=== PATIENT | female | born 1960 | race Caucasian/White ===

== ENCOUNTER 2016-12-01 02:34 | Emergency (ER) | payer BC ==
[~2016-12-01] VITALS: Ht 160 cm; Wt 59.8 kg
[~2016-12-01 02:34] MED LIST: CITA20TA9 PO
[2016-12-01 02:39] VITALS: TEMP 36.7; Ht 160 cm; Wt 59.8 kg
--- NOTE | 2016-12-01 03:01 | EMERGENCY ROOM VISIT NOTE ---
History Report prepared by Irvin: Lizbeth Rodriguez Under the Supervision of: Dr. Hayden Barnett M.D. First contact with patient: 02:50 Chief Complaint: ANXIETY Stated Complaint: INCREASED ANXIETY History of Present Illness The patient is a 56 year old female who presents to the Emergency Room with complaints of worsening anxiety that started a few weeks ago. Associated symptoms include trouble sleeping, loss of appetite, weakness, and shaking. The patient states that she has a history of depression and anxiety. 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 The patient reports that she was taking Ativan each night for years. She recently ran out of this prescription. She is concerned that she may be going through withdrawal. The patient also mentions that her has not been well recently, which is causing her increased stress. The patient denies chest pain, shortness of breath , fevers, chills, or any additional associated symptoms. Source of History: patient, family Onset: A few weeks ago Position: other (Mental Health ) Timing: worsening Modifying Factors (Relieving): other (None) Associated Symptoms: + weakness, No fevers, No chills, No chest pain, No SOB Review of Systems See HPI for pertinent positives & negatives. A total of 10 systems reviewed and were otherwise negative. Past Medical & Surgical Medical Problems: (1) Anxiety (2) Depression Family History FH: cancer FH: diabetes mellitus FH: heart disease FH: hypertension Social History Smoking Status: Current Every Day Smoker Alcohol Use: none Drug Use: none Marital Status: Housing Status: lives with family Occupation Status: employed Current/Historical Medications Scheduled Citalopram Hydrobromide (Celexa), 20 MG PO HS Scheduled PRN Lorazepam (Ativan), 0.5 MG PO BID PRN for Anxiety/Agitation Allergies Coded Allergies: No Known Allergies (Unverified , 12/01/16) Physical Exam Vital Signs Date Time Temp Pulse Resp B/P (MAP) Pulse Ox O2 Delivery O2 Flow Rate FiO2 12/01/16 03:32 86 18 154/92 96 12/01/16 02:39 36.7 99 18 172/106 97 Room Air Physical Exam GENERAL: Patient is anxious appearing, in minimal distress. HEENT: No acute trauma, normocephalic atraumatic, mucous membranes moist, no nasal congestion, no scleral icterus. NECK: No stridor, no adenopathy, no meningismus, trachea is midline. LUNGS: No dyspnea. Clear to auscultation and equal bilaterally. No wheeze, no rhonchi. HEART: Regular rate and rhythm. No murmurs, rubs, gallops appreciated. ABDOMEN: Soft, nontender, bowel sounds positive, no masses appreciated, no peritonitis. BACK: No midline tenderness, no CVA tenderness EXTREMITIES: Normal motion all extremities, no cyanosis, no edema. NEUROLOGIC: Alert and oriented, no acute motor or sensory deficits, no focal weakness, cranial nerves grossly intact. PSYCH: Admits anxiety, denies depression. Denies suicidal ideations. SKIN: No rash, no jaundice, no diaphoresis. Medical Decision & Procedures Medications Administered Medications (Trade) Dose Ordered Sig/Tiana Route Start Time Stop Time Status Last Admin Dose Admin Lorazepam (Ativan 1MG Home Pack) 1 homepack UD ONCE PO 12/01/16 03:15 12/01/16 03:16 DC 12/01/16 03:17 1 HOMEPACK ED Course 0254: The patient was evaluated in room B3. A complete history and physical exam was performed. 0315: Ordered Lorazepam 1 homepack PO. 0318: Reevaluated the patient. Discussed results and discharge instructions: She verbalized understanding and agreement. The patient is ready for discharge. Medical Decision Differential: Mood Disorder, Overdose, Infectious, Electrolyte Abnormality, Cardiac, Hepatic, Endocrine, Toxicologic, Neurologic, amongst other pathologies entertained. Blood pressure screening: Patient was found to have an elevated blood pressure and was referred to their primary doctor for recheck and further treatment. I reviewed her medications. 56 yr old female arrives with complaint of anxiety and inability to sleep. Combination acute anxiety with likely some withdrawal as no ativan in the last week. Stable and breathing comfortably. Home with to go ativan and will give rx to cover her til she sees PCP as outpatient which I stressed need for. Furthermore I requested Case Management to touch base ot see about helping her get in with psychology, etc. Reviewed restrictions regarding ativan and it's risks. She is not suicidal and is comfortable with this plan as is daughter. Aware RTED if worsening or other concerns. Impression Primary Impression: Acute anxiety Additional Impressions: Insomnia Benzodiazepine withdrawal Hypertension Scribe Attestation The scribe's documentation has been prepared under my direction and personally reviewed by me in its entirety. I confirm that the note above accurately reflects all work, treatment, procedures, and medical decision making performed by me. Departure Information Dispostion Home / Self-Care Prescriptions Lorazepam (ATIVAN) 0.5 Mg Tab 0.5 MG PO BID Y for Anxiety/Agitation, #20 TAB Prov: Hayden Barnett M.D. 12/01/16 Referrals No Doctor, Assigned (PCP) Forms HOME CARE DOCUMENTATION FORM, IMPORTANT VISIT INFORMATION Patient Instructions Anxiety Disorder, [facility] Additional Instructions Your blood pressure was elevated during this visit. This is quite common in many people who are being evaluated in the Emergency Department for many reasons. However, it is important that you have your Primary Care Provider recheck your blood pressure and discuss whether treatment will be needed. roasterman elevated blood pressure can lead to strokes, heart attacks, kidney failure amongst other medical issues. If you develop severe headaches, chest pain, weakness in arms or legs, or other concerning symptoms call 911. You should discuss with your primary care provider whether you need Xrays for your smoking history. Problem Qualifiers
[2016-12-01] MEDS ORDERED: LORA-741 PO (03:04)
[2016-12-01] MEDS ORDERED: ATIVAN 1MG HOMEPACK PO ONE (03:15)
[2016-12-01 03:32] VITALS: BP 154/92; PULSE 86; O2SAT 96
== END 2016-12-01 03:33 | disposition home or self-care (01) ==
LOC: C.EDB 02:35
DX: F41.9 Anxiety disorder, unspecified (principal); G47.00 Insomnia, unspecified; T42.4X1A Poisoning by benzodiazepines, accidental (unintentional), initial encounter; I10 Essential (primary) hypertension; F32.9 Major depressive disorder, single episode, unspecified; F17.200 Nicotine dependence, unspecified, uncomplicated; Z80.9 Family history of malignant neoplasm, unspecified; Z83.3 Family history of diabetes mellitus; Z82.49 Family history of ischemic heart disease and other diseases of the circulatory system

== ENCOUNTER → 2016-12-25 | Outpatient (CLI) | payer BC ==
[2016-12-25 12:53] LABS: BLOOD UREA NITROGEN 10 mg/dl (7-18); CREATININE 0.64 mg/dl (0.60-1.20); GLUCOSE,FASTING 86 mg/dl (70-99)
[2016-12-25 12:54] LABS: ALT/SGPT 21 U/L (12-78); AST/SGOT 12 U/L (15-37); BUN/CREATININE RATIO 16.2 (10-20); CALCIUM 8.8 mg/dl (8.5-10.1); CARBON DIOXIDE 27 mmol/L (21-32); CHLORIDE 109 mmol/L (98-107); SODIUM 141 mmol/L (136-145)
[2016-12-25 12:57] LABS: ALKALINE PHOSPHATASE 94 U/L (45-117); CHOLESTEROL 180 mg/dl (0-200); CHOLESTEROL/HDL RATIO 4.7; HDL CHOLESTEROL 38 mg/dl; LDL CHOLESTEROL CALCULATED 117 mg/dl; TRIGLYCERIDES 125 mg/dl (0-150); VERY LOW DENSITY LIPOPROT CALC 25 mg/dl
== END | disposition home or self-care (01) ==
LOC: C.LABPBG 07:35
PROVIDERS: ATTEND Physician Assistant
DX: Z00.00 Encounter for general adult medical examination without abnormal findings (principal)

== ENCOUNTER → 2018-01-25 | Outpatient (CLI) | payer BC | END | disposition home or self-care (01) | LOC: C.PATHSPEC 17:04 | PROVIDERS: ATTEND Physician Assistant | DX: L57.0 Actinic keratosis (principal) ==

== ENCOUNTER 2019-04-02 08:33 | Inpatient (IN) ==
[2019-04-02 09:28] LABS: Basophils # (auto) 0.02 K/uL (0-0.2); Basophils % (auto) 0.2 %; Eosinophils # (auto) 0.04 K/uL (0-0.5); Eosinophils % (auto) 0.4 %; Hematocrit (blood only) 40.9 % (37-47); Hemoglobin 14.4 g/dL (12.0-16.0); Immature Granulocytes # (auto) 0.05 K/uL (0.00-0.02); Immature Granulocytes % (auto) 0.5 %; Lymphocytes # (auto) 1.19 K/uL (1.2-3.4); Lymphocytes % (auto) 11.9 %; Mean Corpuscular Hemoglobin 30.5 pg (25-34); Mean Corpuscular Hgb Conc 35.2 g/dL (32-36); Mean Corpuscular Volume 86.7 fL (80-100); Mean Platelet Volume 10.3 fL (7.4-10.4); Monocytes # (auto) 0.39 K/uL (0.11-0.59); Monocytes % (auto) 3.9 %; Neutrophils # (auto) 8.32 K/uL (1.4-6.5); Neutrophils % (auto) 83.1 %; Platelet Count 348 K/uL (130-400); RDW Coefficient of Variation 13.1 % (11.5-14.5); RDW Standard Deviation 41.8 fL (36.4-46.3); Red Blood Count 4.72 M/uL (4.2-5.4); White Blood Count 10.01 K/uL (4.8-10.8)
[2019-04-02 09:46] LABS: Albumin Level 3.8 gm/dl (3.4-5.0); BUN Creatinine Ratio 6.6 (10-20); Calcium 9.5 mg/dl (8.5-10.1); Creatinine Clr Calc Pharmacy 77.3 ml/min; Est GFR (African American) 112.4; Potassium 3.6 mmol/L (3.5-5.1)
[2019-04-02 09:56] LABS: Albumin Globulin Ratio 0.9 (0.9-2); Bilirubin,Total 0.5 mg/dl (0.2-1); Globulin 4.3 gm/dl (2.5-4.0); Thyroid Stimulating Hormone 0.365 uIu/ml (0.300-4.500); Total Protein 8.1 gm/dl (6.4-8.2)
[2019-04-02 10:24] LABS: Acetaminophen < 2 ug/ml (10-30); Salicylate 2.7 mg/dl (2.8-20)
[2019-04-02 11:20] LABS: Appearance Urine Clear (Clear); Bacteria Urine Automated Negative (Negative); Bilirubin Urine Negative (Negative); Blood Urine Negative (Negative); Cast Urine Automated 0 /lpf (0-5); Color Urine Yellow; Epithelial Cell Urine Auto >30 /lpf (0-5); Glucose Urine UA Negative (Negative); Ketones Urine Trace (Negative); Leukocyte Esterase Urine Negative (Negative); Nitrite Urine Negative (Negative); Protein Urine 1+ (Negative); RBC Urine Automated 0-4 /hpf (0-4); Urobilinogen Urine Negative (Negative)
[2019-04-02 11:45] LABS: Amphetamines+Metham, Urine Neg (Neg); Barbiturates, Urine Neg (Neg); Benzodiazepine, Urine Neg (Neg); Cocaine, Urine Neg (Neg); MDMA (Ecstacy), Urine Neg (Neg); Methadone, Urine Neg (Neg); Opiate, Urine Neg (Neg); Phencyclidine, Urine Neg (Neg)
[2019-04-02] MEDS ORDERED: LORazepam 1 MG TAB SL STA (11:48)
--- NOTE | 2019-04-02 12:41 | History & Physical Report ---
Date of Service April 02, 2019 Assessment & Plan (1) Hyponatremia: Possibly contributing to anxiety Last Na in system was 10/07/18 and it was 135 Uncertain if this has been an ongoing issue or is related to recent increase in celexa x9 days vs recent decreased PO intake Monitor with IVF Recheck tonight (2) Anxiety: Panic attacks with some SI Attempted to check in at [facility] but did not meet criteria Does follow with psych care Recent increase in celexa on 03/24 Psych c/s pending (3) Depression: continue home meds (4) Insomnia: Trazodone has helped (5) Hyperlipidemia: continue home meds (6) HTN (hypertension): Recent increase in lisinopril Labile in the ED in the setting of anxiety Monitor (7) Tobacco use disorder: Nicotine patch (8) DVT prophylaxis: SCDs History of Present Illness Primary Care Provider: Marianne Gonzalez, DO 58 y/o F c/o anxiety. Pt states that she has had worsening anxiety over the last few months, but particularly intense over the last few weeks. She was seen by PCP on 03/24 and her celexa was increased. Her BP was elevated at that time and her lisinopril was also increased. She has not been able to sleep and she was put on trazodone. The trazodone has helped her to fall asleep, but she is not staying asleep. She does not feel any improvement in her anxiety, however she is aware that celexa can take several weeks to help. She has had thoughts of hurting herself. She tried to check into [facility], but was told she did not qualify for inpt care there. She has not been eating much recently. 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 She has occasional chest pain, but fleeting and not in the last few weeks. Pt denies fever, SOB, abd pain, n/v/c/d, LE pain or swelling. Pt follows with [facility] and has an appt with them for . Pt notes baseline tobacco use is <1/2ppd, but she has been up to 1.5ppd the last few weeks. She has hx of alcohol abuse and inpt rehab tx 16 yrs ago. She has not had any alcohol since that time, but did take 1 drink last night "and I never should have did it because it didn't help anything". Denies other substance abuse. Allergies Allergy/AdvReac Type Severity Reaction Status Date / Time No Known Allergies Allergy Verified 04/02/19 09:26 Home Medications Home Medications Medication Instructions Recorded Confirmed Type atorvastatin 20 mg tablet 20 mg PO HS #90 tab 01/06/19 04/02/19 History cholecalciferol (vitamin D3) 2,000 2,000 units PO DAILY #30 cap 01/06/19 04/02/19 History unit capsule lorazepam 0.5 mg tablet 0.5 mg PO TID PRN #60 tab 03/29/19 04/02/19 Rx citalopram 20 mg PO BID 04/02/19 04/02/19 History lisinopril 20 mg PO BID 04/02/19 04/02/19 History trazodone 50 mg PO DAILY 04/02/19 04/02/19 History Past Med/Surg History Medical History Abnormal skin morphology determined by biopsy Elevated alkaline phosphatase level Hyperlipidemia History of colon polyps Anxiety Depression History of colon polyps Hypertension Surgical History History of arthroscopy of right knee History of bilateral tubal ligation History of section x2 History of colonoscopy History of dilatation and curettage Family History Grandmother (Maternal) Family history of diabetes mellitus Father Alcohol abuse Cardiac disorder Diabetes Lung disease Myocardial infarction Mother Anxiety Hypertension Breast cancer Family/Other No problems noted. Social History Preferred Language: Albanian Communication Ability: Effective Visual Impairment: No Limitations Hearing Ability: Normal Actuarial Analyst Required: No Beliefs That Will Affect Care: None marital status: Current Living Situation: Spouse and Family Feels Safe at Home: Yes Smoking Status: Current every day smoker Tobacco Type: cigarettes ; Age Started Using Tobacco: 23 ; packs per day: 1 ; Cigarettes Per Day: 10 a day ; Second Hand Exposure: No ; Hx Alcohol Use: Yes Alcohol type Comment: hx of rehab 16 yrs ago Alcohol Intake Frequency Comment: Did attempt 1 drink last night, but none x16 yrs prior Hx Substance Use: No Dental Care, Regularly: Yes Review of Systems Review of Systems: Pertinent positives and negatives reviewed in HPI--all others negative Physical Exam Constitutional: WD/WN, vitals as above Eyes: normal visual cancino by confrontation and + anicteric sclerae Neck: normal visual inspection and trachea midline Respiratory: normal respiratory effort, lungs clear to auscultation Cardiovascular: Rate/Rhythm: regular rate and regular rhythm Gastrointestinal (Abdomen): Inspection/Auscultation: abdomen not distended Percussion/Palpation: abdomen soft; abdomen nontender Musculoskeletal: Head/Neck/Chest: normocephalic and head atraumatic ne gative for edema, peripheral pulses intact Skin: no rashes, warm and dry Neurologic: awake; not confused Speech / Cognition: normal speech Psychiatric: Orientation: oriented x 3 Apperance: appropriately groomed Eye Contact: good eye contact Speech: normal rate/rhythm/volume of speech Affect: + anxious affect (mildly anxious) Results & Data Vital Signs (Past 12 Hours) Vital Signs Temp Pulse Pulse Resp BP BP Pulse Ox 04/02/19 11:46 84 20 152/76 H 97 04/02/19 08:36 36.4 C L 97 H 20 163/97 H 100 Code Status & VTE Plan Code Status Full code VTE Prophylaxis Plan VTE Prophylaxis will be ordered: Yes PG Care Time/CCT Total # of Minutes Spent Total Time Spent with Patient: Total time spent is greater than 50% in coordination of care (as documented) at patient's floor/unit and/or counseling patient: (1) Depression Depression Type: unspecified Qualified Code(s): F32.9 - Major depressive disorder, single episode, unspecified
--- NOTE | 2019-04-02 12:45 | Emergency Department Note ---
Entered by Fozia Mendoza acting as a scribe for Jagjit Yanez DO History of Present Illness General Chief complaint: Mental Health Evaluation Stated complaint: MENTAL BREAKDOWN Time Seen by Provider: 04/02/19 08:53 Source: patient History of Present Illness Onset (ago): week(s) 1 Location: head Pain Consistency: + other (persistent) Quality: + other (anxiety/ISRAEL exacerbation) Relieved By: not by medication (Ativan, Trazadone, Celexa) Associated symptoms: + other (generalized SI without a plan, negative thoughts, forgetting to take medications, feeling "blank") The patient is a 58 year old female that is presenting to the Emergency Room with complaints of persistent anxiety that has been ongoing and worsened 1 week ago. The patient reports that she has been diagnosed with generalized anxiety disorder. She states that she been feeling worse lately and has generalized thoughts of self-harm. She denies any specific plan but states that she is tired of these negative thoughts. She notes that she feels no suman in any activ ity and is unable to have any positive thoughts. She reports that she tried to get admitted to the [facility] for inpatient treatment 1 week ago but was denied direct admission as she did not fit criteria. The patient states that she saw a therapist at [facility] the following day and is scheduled for a follow up in 4 days. She notes that she saw her PCP 3 days ago and had her medications adjusted. She states that she takes Celexa, Ativan, and Trazadone. She reports that she decided to come to the ED today to seek help as she is not getting better at home. She states that she would like to be admitted to help rid her of her anxiety and negative thoughts. The patient notes that she is having diff iculty remembering to take her medication. She states that she drank alcohol last night for the first time in 16 years. 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 The patient reports that she believes her anxiety was triggered by her husbands end-stage COPD. She states that she had previously been obsessed with his illness and trying to help him get better. She notes that she now feels blank and does not care about it anymore. She reports that she used to feel suman around other people but now feels nothing. Home Medications Home Medications Medication Instructions Recorded Confirmed Type atorvastatin 20 mg tablet 20 mg PO HS #90 tab 01/06/19 04/02/19 History cholecalciferol (vitamin D3) 2,000 2,000 units PO DAILY #30 cap 01/06/19 04/02/19 History unit capsule lorazepam 0.5 mg tablet 0.5 mg PO TID PRN #60 tab 03/29/19 04/02/19 Rx citalopram 20 mg PO BID 04/02/19 04/02/19 History lisinopril 20 mg PO BID 04/02/19 04/02/19 History trazodone 50 mg PO DAILY 04/02/19 04/02/19 History Allergies Allergy/AdvReac Type Severity Reaction Status Date / Time No Known Allergies Allergy Verified 04/02/19 09:26 Past Med/Surg History Medical History Abnormal skin morphology determined by biopsy Elevated alkaline phosphatase level Hyperlipidemia History of colon polyps Anxiety Depression History of colon polyps Hypertension Surgical History History of arthroscopy of right knee History of bilateral tubal ligation History of section x2 History of colonoscopy History of dilatation and curettage Family History Grandmother (Maternal) Family history of diabetes mellitus Father Alcohol abuse Cardiac disorder Diabetes Lung disease Myocardial infarction Mother Anxiety Hypertension Breast cancer Family/Other No problems noted. 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 and A total of 10 systems reviewed and were otherwise negative Physical Exam Vital Signs Vital Signs - 24 hr 04/02/19 08:36 04/02/19 11:46 Temperature 36.4 C L Temperature Source Oral Sepsis Recent Fever Within 48 Hours No Sepsis New/Unexplained Change in Mental Status No Sepsis Action Taken by Nursing No Action Required Pulse Rate 97 H Pulse Rate [Finger] 84 Respiratory Rate 20 20 Blood Pressure 163/97 H Blood Pressure [Left Arm] 152/76 H Blood Pressure Mean 119 Blood Pressure Mean [Left Arm] 101 Pulse Oximetry 100 97 Oxygen Delivery Method Room Air Room Air CONSTITUTIONAL/VITAL SIGNS: Reviewed / noted above. GENERAL: Non-toxic in appearance. INTEGUMENTARY: Warm, dry, and [place]. HEAD: Normocephalic. EYES: without scleral icterus or trauma. ENT/OROPHARYNX: clear and moist. LYMPHADENOPATHY/NECK: Is supple without lymphadenopathy or meningismus. RESPIRATORY: Lungs clear and equal. CARDIOVASCULAR: Regular rate and rhythm. GI/ABDOMEN: Soft and nontender. No organomegaly or pulsatile mass. No rebound or guarding. Normal bowel sounds. EXTREMITIES: Warm and well perfused. BACK: No CVA tenderness. NEUROLOGICAL: Intact without focal deficits. PSYCHIATRIC: Slightly depressed affect. MUSCULOSKELETAL: Normally developed with good muscle tone. Course 0856:The patient was evaluated in room A06. A complete history and physical examination was performed. 1113: The patient is requesting medication to help her to calm down. 1120: I discussed the patient's case with Dr. [place] [facility], who will evaluate the patient for further management and care. She states that a psych consult will be called for the patient while in the hospital. 1129: Upon reevaluation, the patient is resting comfortably. I discussed laboratory and radiographic results with the patient. She verbalized agreement of the treatment plan. The patient will be evaluated for further management and care. Administered Medications Discontinued Medications Lorazepam (Ativan) 1 mg SL NOW STA Stop: 04/02/19 11:49 Last Admin: 04/02/19 12:01 Dose: 1 mg Documented by: [id number] Medical Decision Making Differential Diagnosis Differential includes toxic ingestions, self-mutilation, suicidal ideation, suicide attempt, depression. Medical Records Attestation: I reviewed the patient's medical records. Home Medications Current Medication List: was personally reviewed by me Laboratory Data Attestation: I reviewed the patient's lab results. Result diagrams: 04/02/19 09:18 04/02/19 09:18 Lab Results 04/02/19 04/02/1904/02/19 Range/Units 09:18 09:18 09:18 WBC 10.01 (4.8-10.8) K/uL RBC 4.72 (4.2-5.4) M/uL Hgb 14.4 (12.0-16.0) g/dL Hct 40.9 (37-47) % MCV 86.7 (80-100) fL MCH 30.5 (25-34) pg MCHC 35.2 (32-36) g/dL RDW Std Deviation 41.8 (36.4-46.3) fL RDW Coeff of Hever 13.1 (11.5-14.5) % Plt Count 348 (130-400) K/uL MPV 10.3 (7.4-10.4) fL Immature Gran % (Auto) 0.5 % Neut % (Auto) 83.1 % Lymph % (Auto) 11.9 % Lyon % (Auto) 3.9 % Eos % (Auto) 0.4 % Baso % (Auto) 0.2 % Immature Gran # (Auto) 0.05 H (0.00-0.02) K/uL Neut # (Auto) 8.32 H (1.4-6.5) K/uL Lymph # (Auto) 1.19 L (1.2-3.4) K/uL Lyon # (Auto) 0.39 (0.11-0.59) K/uL Eos # (Auto) 0.04 (0-0.5) K/uL Baso # (Auto) 0.02 (0-0.2) K/uL Sodium 124 L (136-145) mmol/L Potassium 3.6 (3.5-5.1) mmol/L Chloride 92 L (98-107) mmol/L Carbon Dioxide 25 (21-32) mmol/L Anion Gap 7.0 (3-11) BUN 4 L (7-18) mg/dl Creatinine 0.64 (0.6-1.2) mg/dl Est Cr Clr Drug Dosing 77.3 ml/min Est GFR ( Amer) 112.4 Est GFR (Non-Af Amer) 97.0 BUN/Creatinine Ratio 6.6 L (10-20) Glucose 129 H (70-99) mg/dl Calcium 9.5 (8.5-10.1) mg/dl Total Bilirubin 0.5 (0.2-1) mg/dl AST 16 (15-37) U/L ALT 32 (12-78) U/L Alkaline Phosphatase 259 H (45-117) U/L Total Protein 8.1 (6.4-8.2) gm/dl Albumin 3.8 (3.4-5.0) gm/dl Globulin 4.3 H (2.5-4.0) gm/dl Albumin/Globulin Ratio 0.9 (0.9-2) TSH 0.365 (0.300-4.500) uIu/ml Urine Color Urine Appearance (Clear) Urine pH (4.5-7.5) Ur Specific [place] (1.000-1.030) Urine Protein (Negative) Urine Glucose (UA) (Negative) Urine Ketones (Negative) Urine Blood (Negative) Urine Nitrite (Negative) Urine Bilirubin (Negative) Urine Urobilinogen (Negative) Ur Leukocyte Esterase (Negative) Urine WBC (Auto) (0-5) /hpf Urine RBC (Auto) (0-4) /hpf U Hyaline Cast (Auto) (0-5) /lpf U Epithel Cells (Auto) (0-5) /lpf Urine Bacteria (Auto) (Negative) Salicylates 2.7 L (2.8-20) mg/dl Urine Opiates Screen (Neg) Ur Methadone, Qual (Neg) Acetaminophen < 2 L (10-30) ug/ml Urine Barbiturates (Neg) Ur Phencyclidine (PCP) (Neg) U Amphetamin/Meth Scrn (Neg) MDMA (Ecstasy) Screen (Neg) U Benzodiazepines Scrn (Neg) Ur Cocaine Metabolite (Neg) U Marijuana (THC) Screen (Neg) Ethyl Alcohol mg/dL (0-3) mg/dl 04/02/19 04/02/19 04/02/19 Range/Units 09:18 10:45 10:45 WBC (4.8-10.8) K/uL RBC (4.2-5.4) M/uL Hgb (12.0-16.0) g/dL Hct (37-47) % MCV (80-100) fL MCH (25-34) pg MCHC (32-36) g/dL RDW Std Deviation (36.4-46.3) fL RDW Coeff of Hever (11.5-14.5) % Plt Count (130-400) K/uL MPV (7.4-10.4) fL Immature Gran % (Auto) % Neut % (Auto) % Lymph % (Auto) % Lyon % (Auto) % Eos % (Auto) % Baso % (Auto) % Immature Gran # (Auto) (0.00-0.02) K/uL Neut # (Auto) (1.4-6.5) K/uL Lymph # (Auto) (1.2-3.4) K/uL Lyon # (Auto) (0.11-0.59) K/uL Eos # (Auto) (0-0.5) K/uL Baso # (Auto) (0-0.2) K/uL Sodium (136-145) mmol/L Potassium (3.5-5.1) mmol/L Chloride (98-107) mmol/L Carbon Dioxide (21-32) mmol/L Anion Gap (3-11) BUN (7-18) mg/dl Creatinine (0.6-1.2) mg/dl Est Cr Clr Drug Dosing ml/min Est GFR ( Amer) Est GFR (Non-Af Amer) BUN/Creatinine Ratio (10-20) Glucose (70-99) mg/dl Calcium (8.5-10.1) mg/dl Total Bilirubin (0.2-1) mg/dl AST (15-37) U/L ALT (12-78) U/L Alkaline Phosphatase (45-117) U/L Total Protein (6.4-8.2) gm/dl Albumin (3.4-5.0) gm/dl Globulin (2.5-4.0) gm/dl Albumin/Globulin Ratio (0.9-2) TSH (0.300-4.500) uIu/ml Urine Color Yellow Urine Appearance Clear (Clear) Urine pH 7.0 (4.5-7.5) Ur Specific [place] 1.010 (1.000-1.030) Urine Protein 1+ H (Negative) Urine Glucose (UA) Negative (Negative) Urine Ketones Trace H (Negative) Urine Blood Negative (Negative) Urine Nitrite Negative (Negative) Urine Bilirubin Negative (Negative) Urine Urobilinogen Negative (Negative) Ur Leukocyte Esterase Negative (Negative) Urine WBC (Auto) 1-5 (0-5) /hpf Urine RBC (Auto) 0-4 (0-4) /hpf U Hyaline Cast (Auto) 0 (0-5) /lpf U Epithel Cells (Auto) >30 H (0-5) /lpf Urine Bacteria (Auto) Negative (Negative) Salicylates (2.8-20) mg/dl Urine Opiates Screen Neg (Neg) Ur Methadone, Qual Neg (Neg) Acetaminophen (10-30) ug/ml Urine Barbiturates Neg (Neg) Ur Phencyclidine (PCP) Neg (Neg) U Amphetamin/Meth Scrn Neg (Neg) MDMA (Ecstasy) Screen Neg (Neg) U Benzodiazepines Scrn Neg (Neg) Ur Cocaine Metabolite Neg (Neg) U Marijuana (THC) Screen Neg (Neg) Ethyl Alcohol mg/dL < 3.0 (0-3) mg/dl Blood Pressure Blood Pressure Findings: Elevated blood pressure Blood Pressure Disposition: Referred to patients primary care provider MDM Narrative This is a 58-year-old female who presents to the ED with a chief complaint of anxiety. The patient was diagnosed with generalized anxiety recently by her PCP. She states that she went to the [facility] last week and they did not accept her. She followed up with some [facility] this past Wednesday and has an appointment to see the psychiatrist this . The patient saw her PCP and had medications prescribed including Ativan, trazodone and Celexa. The patient states that she has been feeling anxious. She states that she has not had alcoh ol to drink for a number of years as she was an alcoholic but drank alcohol last night. She states that she does not care and states that she is having some suicidal ideations. The patient's physical exam was unremarkable. She does appear slightly anxious. Her blood work including a CBC and chemistry panel was unremarkable with exception of a sodium of 124. Alcohol was negative, Tylenol was negative and salicylates were 2.7. The patient will be seen by the hospitalist for further evaluation and care. Mental health services can be consulted by the patient is in the hospital being evaluated for hyponatremia. Impression & Plan Hyponatremia, Anxiety, Depression Discharge Plan Visit Data Chief Complaint: Mental Health Evaluation Stated Complaint: MENTAL BREAKDOWN ED Provider: Jagjit Yanez Discharge Problem: Hyponatremia, Anxiety, Depression Patient Disposition: Being Evaluated by Hospitalist Forms Stand Alone Forms: My [facility] Prescriptions Prescriptions: No Action lorazepam 0.5 mg tablet 0.5 mg PO TID PRN (Reason: anxiety) Qty: 60 RF: 0 atorvastatin 20 mg tablet 20 mg PO HS Qty: 90 RF: 0 cholecalciferol (vitamin D3) 2,000 unit capsule 2,000 units PO DAILY Qty: 30 RF: 0 trazodone 50 mg tablet 50 mg PO DAILY RF: 0 lisinopril 20 mg tablet 20 mg PO BID RF: 0 citalopram 20 mg Tablet 20 mg PO BID RF: 0 Referrals Referrals: Marianne Gonzalez DO [Primary Care Provider] - Discharge Problem: Depression Qualifiers: Depression Type: unspecified Qualified Code(s): F32.9 - Major depressive disorder, single episode, unspecified The scribe's documentation has been prepared under my direction and personally reviewed by me in its entirety. I confirm that the note above accurately reflects all work, treatment, procedures, and medical decision making performed by me.
[2019-04-02] MEDS ORDERED: ONDANSETRON INJ 2 MG/ML 2 ML VIAL IV PRN (14:31)
[2019-04-02] MEDS ORDERED: MAGNESIUM HYDROXIDE SUSP 30 ML UDC PO PRN (14:31)
[2019-04-02] MEDS ORDERED: ACETAMINOPHEN 325 MG TAB PO PRN (14:31)
[2019-04-02] MEDS ORDERED: LORazepam 0.5 MG TAB PO PRN (14:31)
[2019-04-02] MEDS ORDERED: CITALOPRAM 40 MG TAB PO SCH (15:30)
[2019-04-02] MEDS: NSS + 20MEQ KCL 20 MEQ/1,000 ML BAG IV SCH (15:34)
[2019-04-02] MEDS: NICOTINE 21 MG/24 HR TDSY TD SCH (15:34)
[2019-04-02] MEDS: CITALOPRAM 40 MG TAB PO SCH (15:35)
[2019-04-02] MEDS ORDERED: INFLUENZA ADMINISTRATION CHARGE ONE (16:00)
[2019-04-02] MEDS ORDERED: INFLUENZA VIRUS QUAD VACCINE 0.5 ML SYR IM ONE (16:00)
[2019-04-02 20:23] LABS: BUN Creatinine Ratio 13.8 (10-20); Calcium 8.6 mg/dl (8.5-10.1); Est GFR (African American) 100.4; Est GFR (Non-African American) 86.6; Potassium 4.2 mmol/L (3.5-5.1)
[2019-04-02] MEDS ORDERED: Nursing to Pharmacy Communication ONE (20:38)
[2019-04-02] MEDS ORDERED: TRAZODONE HCL 50 MG TAB PO SCH (21:00)
[2019-04-02] MEDS ORDERED: ATORVASTATIN 20 MG TAB PO SCH (21:00)
[2019-04-02] MEDS: lisinopriL 20 MG TAB PO SCH (21:10)
[2019-04-03] MEDS: NSS + 20MEQ KCL 20 MEQ/1,000 ML BAG IV SCH (03:48)
[2019-04-03] MEDS: lisinopriL 20 MG TAB PO SCH (07:38)
[2019-04-03] MEDS: CITALOPRAM 40 MG TAB PO SCH (07:38)
[2019-04-03] MEDS: NICOTINE 21 MG/24 HR TDSY TD SCH (08:17)
[2019-04-03] MEDS ORDERED: CHOLECALCIFEROL 1,000 UNITS TAB PO SCH (09:00)
[2019-04-03] MEDS ORDERED: TRAZODONE HCL 50 MG TAB PO SCH (09:00)
[2019-04-03] MEDS ORDERED: CITALOPRAM 40 MG TAB PO SCH (09:00)
[2019-04-03 09:06] LABS: BUN Creatinine Ratio 10.9 (10-20); Calcium 8.9 mg/dl (8.5-10.1); Creatinine Clr Calc Pharmacy 64.3 ml/min; Est GFR (African American) 97.3; Est GFR (Non-African American) 83.9; Potassium 4.2 mmol/L (3.5-5.1)
--- NOTE | 2019-04-03 12:36 | Psychiatric Consultation ---
Date of Consultation April 03, 2019 Impression / Recommendations Impression 58-year-old female admitted medically on 04/02/2019 after presenting to the ED with suicidal ideation and desire for inpatient psychiatric treatment. Upon ED workup, patient was found to have hyponatremia, and medical admission was recommended for correction. Psychiatric consultation was requested to evaluate patient for suicidal ideation and panic attacks. Patient admits to depressive symptoms for several months, admitting that her largest stressor at this point in time is to deterioration of her 's physical health. Although the timing of the symptoms has been less than 6 months, the patient reports 2 prior depressive episodes for which she required inpatient psychiatric treatment and initiation of antidepressant medications. Her current presentation is likely onset of another depressive episode, and we will treat as major depressive disorder, recurrent, severe. Patient does endorse suicidal ideation, but denies plan or intent. At this point in time, the patient has demonstrated inability to effectively care for self as she is admitting to not eating or sleeping well, apathy, and anhedonia. Patient herself verbalized that she is concerned about her safety that she is expected to return home. Patient permitted this provider to obtain collateral information from her daughters, who also verbalized that they feel unsafe with her mother returning home as they are unsure what additionally they are able to provide for her. Given failed outpatient treatment, worsening of condition, and persistent suicidality, it is recommended that the patient be referred for inpatient psychiatric treatment in order to mitigate risk factors and receive therapeutic interventions. There are no recommendations at this time to adjust her psychiatric medications, and we will defer this to accepting facility. Liaison will assist with reviewing in network facilities, patient is more than welcome to be transferred to our unit should she desire. Patient and family are agreeable with recommendation for inpatient psychiatric treatment at this time. They denied other needs or concerns presently. Dr. Sanjana Singleton was directly involved in review and discussion of the patient's case and participated in medical decision making regarding treatment recommendations. Risk Factors Assessment Do You Have Access To A Gun?: Yes (states she would use it to harm herself) Psych History Identifying Data 58-year-old female admitted medically on 04/02/2019 after presenting to the ED with suicidal ideation and desire for inpatient psychiatric treatment. Upon ED workup, patient was found to have hyponatremia, and medical admission was recommended for correction. Psychiatric consultation was requested to evaluate patient for suicidal ideation and panic attacks. Information is gathered from hospital documentation and the patient herself, which appears to be reliable. Collateral information was also obtained from the patient's daughters, with patient's verbal permission. Chief Complaint "I have had 2 major depressive episodes in my life. Now I have another one, it started this summer. My got sick a few years ago." History of Present Illness 58-year-old female admitted medically on 04/02/2019 after presenting to the ED with suicidal ideation and desire for inpatient psychiatric treatment. Upon ED workup, patient was found to have hyponatremia, and medical admission was recommended for correction. Psychiatric consultation was requested to evaluate patient for suicidal ideation and panic attacks. Patient's case was reviewed and discussed with psychiatric nurse liaison and psychiatrist. Upon entering patient's room, she was receiving a visit from her 2 adult daughters. Patient did request that they leave the room for the interview; however, she allowed this provider to discuss her situation separately with her daughters after our conversation. Patient admits to this provider that she has been struggling with depressive symptoms "since the summer." She reports to previous "major depressive episodes in my life." The first depressive episode occurred after the of her infant son. Patient admits that she was suicidal at that time, without active furtherance. She reportedly received inpatient treatment and was started on antidepressant medications. Patient states that her depressive symptoms returned during her with her third child, and was unable to emotionally connect with this daughter. Patient received inpatient treatment again at this time to treat depression and resume medications. Pat ient states she is remained on antidepressant medication since that time, denied significant depressive episodes until recently. Patient states that she went to her primary care physician about her mood concerns over the last several months, and her dose of citalopram was titrated from 20 mg to 40 mg. Patient was also initiated on trazodone 50 mg to help with sleep. Both of these medication ijeoma nges were made roughly a week prior to this admission. Patient also takes lorazepam 0.5 mg 3 times daily as needed, and admits she is taking this medication more frequently than it is prescribed in order to manage her elevated anxiety level. Patient states that she and her daughters called the crisis line regarding her suicidality, and she was told she did not meet criteria for a field evaluation, but could present to the ED or the [facility]. Patient's daughter accompanied the patient to the [facility], where she was again told she did not meet criteria for inpatient psychiatric admission. Patient followed up with her outpatient therapist shortly after these events, but continued to have passive suicidality. She admits that she has not been properly caring for herself at home, especially as the anxiety has been increasing over the last several days. Patient believes this most recent depressive episode is heavily related to her 's deteriorating health. The patient reports that her was diagnosed with COPD "a few years ago", and that he is likely approaching the end of his life. Patient states that as she has been struggling to care for her during this time, she has noticed "my thoughts and feelings have become distorted." When asked to explain this statement, the patient initially reports that this "distortion" is the fact that activities and visits that historically had brought her suman no longer do so. Patient states "I even go to places I know I like in order to feel suman, but I still do not." When asked about the logical or bizarre thoughts, the patient does mention a situation that she states she wishes to keep private from her daughters. Patient shares that her has been taking her for several nights to turn down his oxygen level while he is sleeping, so he can pass peacefully. Patient denies having truly consider this, but states "I did it the other night, I do not even know why, I immediately turned it back up." The patient does admit that her concentration has been reduced, and there are periods of time in which she feels confused. Patient endorses difficulty falling and staying asleep, reduced appetite with a 30 pound weight loss in the last 2-3 months, decreased energy level, and hopelessness. Patient admits that she does have suicidal thoughts, but does not have a plan or intent to act on these thoughts. Patient admits that she is scared to go home and her current condition, as she is worried about the worsening of these thoughts. In regard to anxiety, the patient endorses racing thoughts and excessive w orrying. She states "I worry all the time about how I can get better myself and take care of him." Patient admits to physical symptoms as a result of anxiety, and endorses headaches, tachycardia, and "numbness" that last "all day". Patient mentions several times that she has "obsessions", which she describes as a need to be on her phone looking up various topics. Patient states "initially I was obsessed with ideas on how to get [my ] better." She states now that she has been "obsessed with researching [place]." Collateral information is obtained from the patient's 2 adult daughters with her permission. Daughters agree that her symptoms have been ongoing since the summer months. They state it seems as though their mother is "not there." They state that he is trying to be supportive, offering her the opportunity to leave the house and "get away" with family. They state the patient may show up at their homes at 7:00 in the morning, stating she cannot be home. They then state s "but when we tried to take her places, she has a lot of anxiety about not being at home." They admit that the patient has not been eating or sleeping well, and that she endorsed suicidal ideation to them yesterday, which prompted the visit to the emergency room. They also state they were concerned as their mother reported improvement in sleep the evening of 03/31/19, later admitting that she had consumed alcohol and believed this was why. They state that her mother has been sober for 16 years, and that the alcohol use is a concern for him as well. Patient's daughter states that they do not feel overly comfortable with the idea of their mother returning home and her current condition, and feel she would benefit from inpatient psychiatric treatment at this time. Pt denies SIB, A/V hallucinations, paranoia, luis/hypomania, other symptoms more suggestive of a bipolar presentation, PTSD, eating disorder, and other specific psychiatric symptoms. Past Psychiatric History Current Psychiatric Diagnosis: Depression, Anxiety Outpatient Services: Therapist - Kirstin Acosta, [facility] - [facility] [place] Psychiatric intake scheduled at [facility] for 04/06/19 Previous Psych Admissions: [facility] - 37 years ago (after the of her baby boy) [facility] - 28 years ago ( depression) Do You Have Access To A Gun?: Yes (states she would use it to harm herself) History of Previous Suicide Attempt: No Past Medication Trials: Per patient reports: 1. Elavil 2. Celexa 3. Ativan 4. Trazodone Allergies Allergy/AdvReac Type Severity Reaction Status Date / Time No Known Allergies Allergy Verified 04/02/19 09:26 Home Medications Home Medications Medication Instructions Recorded Confirmed Type atorvastatin 20 mg tablet 20 mg PO HS #90 tab 01/06/19 04/02/19 History cholecalciferol (vitamin D3) 2,000 2,000 units PO DAILY #30 cap 01/06/19 04/02/19 History unit capsule lorazepam 0.5 mg tablet 0.5 mg PO TID PRN #60 tab 03/29/19 04/02/19 Rx citalopram 40 mg PO DAILY 04/02/19 04/02/19 History lisinopril 20 mg PO BID 04/02/19 04/02/19 History trazodone 50 mg PO DAILY 04/02/19 04/02/19 History Family History Mother with anxiety; grandfather with alcoholism. Reports grandfather committed suicide. Substance Abuse History Pt admits to history of alcohol abuse. 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 Patient History Medical History Abnormal skin morphology determined by biopsy Elevated alkaline phosphatase level Hyperlipidemia History of colon polyps Anxiety Depression History of colon polyps Hypertension Surgical History History of arthroscopy of right knee History of bilateral tubal ligation History of section x2 History of colonoscopy History of dilatation and curettage Family History Grandmother (Maternal) Family history of diabetes mellitus Father Alcohol abuse Cardiac disorder Diabetes Lung disease Myocardial infarction Mother Anxiety Hypertension Breast cancer Family/Other No problems noted. Social History Preferred Language: Swedish Communication Ability: Effective Visual Impairment: No Limitations Hearing Ability: Normal Rides Supervisor Required: No Beliefs That Will Affect Care: None marital status: Current Living Situation: Spouse Other Information That Helps Us Care for You: No Feels Safe at Home: Yes Smoking Status: Current every day smoker Tobacco Type: cigarettes ; Age Started Using Tobacco: 23 ; packs per day: 1 ; Cigarettes Per Day: 10 a day ; Do You Dip or Chew Tobacco: No ; Second Hand Exposure: No ; Tobacco Cessation Education Requested by Patient: No Hx Alcohol Use: No Hx Substance Use: No Dental Care, Regularly: Yes Physical Exam Psychiatric: Orientation: alert, oriented x 3 and cooperative Apperance: appropriately dressed (for situation, in paper scrubs), appropriately groomed and appeared stated age female of healthy-appearing weight, appearing anxious but in no acute distress. Patient is appropriately dressed for situation, as she is wearing paper scrubs. Blonde, shoulder length hair is neatly styled. Level of grooming and hygiene appears appropriate. Eye Contact: good eye contact Motor Behavior: no abnormal motor movements (Patient observed while sitting in bed) Speech: normal rate/rhythm/volume of speech Affect: + depressed affect, + anxious affect, + tearful affect and mood congruent with affect Mood: + depressed mood ("I just have not been caring about anything") and + anxious mood ("I worry all the time") Thought Process: goal directed thought process, linear/logical thought process, clear/coherent thought process and thought association intact Thought Content: reality based without delusions, + hopelessness and + guilt Suicidal Thoughts: denies suicidal plan and denies suicidal intent; + reports suicidal thoughts But endorses significant concerns about returning home without addressing her depressive symptoms. Unable to contract for safety outside of an inpatient setting at this time Homicidal Thoughts: denies homicidal thoughts However, see HPI for additional information. Hallucinations: no auditory hallucinations and no visual hallucinations Cognition: remote memory grossly intact, attention grossly intact and language grossly intact Insight: + fair insight Judgement: + fair judgement Vital Signs (Past 24 Hours): Last Vital Signs Temp 36.7 C 04/03/19 11:15 Pulse 82 04/03/19 11:15 Resp 18 04/03/19 11:15 BP 145/82 H 04/03/19 11:15 Pulse Ox 95 04/03/19 11:15 Review of Systems Constitutional: reports generalized weakness Cardiovascular: denied Respiratory: denied Gastrointestinal: denied Neurological: reports dizziness Psychiatric: denies symptoms other than stated above Total of at least 10 systems reviewed, pertinent positives as above and in HPI. Results & Data Medications Administered Atorvastatin Calcium (Lipitor) 20 mg PO HS [facility] Stop: 05/02/19 20:59 Last Admin: 04/02/19 21:08 Dose: 20 mg Documented by: [id number] Citalopram Hydrobromide (Celexa) 40 mg PO DAILY [facility] Stop: 05/02/19 15:29 Last Admin: 04/03/19 07:38 Dose: 40 mg Documented by: [id number] Admin: 04/02/19 15:35 Dose: 40 mg Documented by: [id number] Lisinopril (Zestril) 20 mg PO BID [facility] Stop: 05/02/19 20:59 Last Admin: 04/03/19 07:38 Dose: 20 mg Documented by: [id number] Admin: 04/02/19 21:10 Dose: 20 mg Documented by: [id number] Lorazepam (Ativan) 0.5 mg PO TID PRN PRN Reason: anxiety Stop: 05/02/19 14:30 Last Admin: 04/02/19 21:10 Dose: 0.5 mg Documented by: [id number] Miscellaneous (Remove Nicoderm Patch) 1 ea N/A HS [facility] Stop: 05/02/19 20:59 Last Admin: 04/02/19 21:11 Dose: 1 ea Documented by: [id number] Nicotine (Nicoderm Cq) 21 mg TD QAM [facility] Stop: 05/02/19 14:30 Last Admin: 04/03/19 08:17 Dose: 21 mg Documented by: [id number] Admin: 04/02/19 15:34 Dose: 21 mg Documented by: [id number] Trazodone HCl (Desyrel) 50 mg PO HS [facility] Stop: 05/02/19 20:59 Last Admin: 04/02/19 21:07 Dose: 50 mg Documented by: [id number] Vitamin D (Vitamin D3) 2,000 units PO DAILY [facility] Stop: 05/03/19 08:59 Last Admin: 04/03/19 07:38 Dose: 2,000 units Documented by: [id number] Coding Level of Care Code 31117 [facility] Intl Hosp Care Lvl 3
[2019-04-03 14:03] LABS: BUN Creatinine Ratio 14.3 (10-20); Calcium 8.5 mg/dl (8.5-10.1); Creatinine Clr Calc Pharmacy 71.7 ml/min; Est GFR (African American) 109.7; Est GFR (Non-African American) 94.6; Potassium 4.3 mmol/L (3.5-5.1)
--- NOTE | 2019-04-03 17:45 | Discharge Summary ---
Date of Service April 03, 2019 Admission HPI Per Admitting Provider 58-year-old female admitted medically on 04/02/2019 after presenting to the ED with suicidal ideation and desire for inpatient psychiatric treatment. Upon ED workup, patient was found to have hyponatremia, and medical admission was recommended for correction. Psychiatric consultation was requested to evaluate patient for suicidal ideation and panic attacks. Patient's case was reviewed and discussed with psychiatric nurse liaison and psychiatrist. Upon entering patient's room, she was receiving a visit from her 2 adult daughters. Patient did request that they leave the room for the interview; however, she allowed this provider to discuss her situation separately with her daughters after our conversation. Patient admits to this provider that she has been struggling with depressive symptoms "since the summer." She reports to previous "major depressive episodes in my life." The first depressive episode occurred after the of her infant son. Patient admits that she was suicidal at that time, without active furtherance. She reportedly received inpatient treatment and was started on antidepressant medications. Patient states that her depressive symptoms returned during her with her third child, and was unable to emotionally connect with this daughter. Patient received inpatient treatment again at this time to treat depression and resume medications. Patient states she is remained on antidepressant medication since that time, denied significant depressive episodes until recently. Patient states that she went to her primary care physician about her mood concerns over the last several months, and her dose of citalopram was titrated from 20 mg to 40 mg. Patient was also initiated on trazodone 50 mg to help with sleep. Both of these medication changes were made roughly a week prior to this admission. Patient also takes lorazepam 0.5 mg 3 times daily as needed, and admits she is taking this medication more frequently than it is prescribed in order to manage her elevated anxiety level. Patient states that she and her daughters called the crisis line regarding her suicidality, and she was told she did not meet criteria for a field evaluation, but could present to the ED or the [facility]. Patient's daughter accompanied the patient to the [facility], where she was again told she did not meet criteria for inpatient psychiatric admission. Patient followed up with her outpatient therapist shortly after these events, but continued to have passive suicidality. She admits that she has not been properly caring for herself at home, especially as the anxiety has been increasing over the last several days. Patient believes this most recent depressive episode is heavily related to her 's deteriorating health. The patient reports that her was diagnosed with COPD "a few years ago", and that he is likely approaching the end of his life. Patient states that as she has been struggling to care for her during this time, she has noticed "my thoughts and feelings have become distorted." When asked to explain this statement, the patient initially reports that this "distortion" is the fact that activities and visits that historically had brought her suman no longer do so. Patient states "I even go to places I know I like in order to feel suman, but I still do not." When asked about the logical or bizarre thoughts, the patient does mention a situation that she states she wishes to keep private from her daughters. Patient shares that her has been taking her for several nights to turn down his oxygen level while he is sleeping, so he can pass peacefully. Patient denies having truly consider this, but states "I did it the other night, I do not even know why, I immediately turned it back up." The patient does admit that her concentration has been reduced, and there are periods of time in which she feels confused. Patient endorses difficulty falling and staying asleep, reduced appetite with a 30 pound weight loss in the last 2-3 months, decreased energy level, and hopelessness. Patient admits that she does have suicidal thoughts, but does not have a plan or intent to act on these thoughts. Patient admits that she is scared to go home and her current condition, as she is worried about the worsening of these thoughts. In regard to anxiety, the patient endorses racing thoughts and excessive worrying. She states "I worry all the time about how I can get better myself and take care of him." Patient admits to physical symptoms as a result of anxiety, and endorses headaches, tachycardia, and "numbness" that last "all day". Patient mentions several times that she has "obsessions", which she describes as a need to be on her phone looking up various topics. Patient states "initially I was obsessed with ideas on how to get [my ] better." She states now that she has been "obsessed with researching [place]." Collateral information is obtained from the patient's 2 adult daughters with her permission. Daughters agree that her symptoms have been ongoing since the summer months. They state it seems as though their mother is "not there." They state that he is trying to be supportive, offering her the opportunity to leave the house and "get away" with family. They state the patient may show up at their homes at 7:00 in the morning, stating she cannot be home. They then states "but when we tried to take her places, she has a lot of anxiety about not being at home." They admit that the patient has not been eating or sleeping well, and that she endorsed suicidal ideation to them yesterday, which prompted the visit to the emergency room. They also state they were concerned as their mother reported improvement in sleep the evening of 03/31/19, later admitting that she had consumed alcohol and believed this was why. They state that her mother has been sober for 16 years, and that the alcohol use is a concern for him as well. Patient's daughter states that they do not feel overly comfortable with the idea of their mother returning home and her current condition, and feel she would benefit from inpatient psychiatric treatment at this time. Pt denies SIB, A/V hallucinations, paranoia, luis/hypomania, other symptoms more suggestive of a bipolar presentation, PTSD, eating disorder, and other specific psychiatric symptoms. Admission Exam Per Admitting Provider Constitutional: WD/WN, vitals as above Eyes: normal visual cancino by confrontation and + anicteric sclerae Neck: normal visual inspection and trachea midline Respiratory: normal respiratory effort, lungs clear to auscultation Cardiovascular: Rate/Rhythm: regular rate and regular rhythm Gastrointestinal (Abdomen): Inspection/Auscultation: abdomen not distended Percussion/Palpation: abdomen soft; abdomen nontender Musculoskeletal: Head/Neck/Chest: normocephalic and head atraumatic negative for edema, peripheral pulses intact Skin: no rashes, warm and dry Neurologic: awake; not confused Speech / Cognition: normal speech Psychiatric: Orientation: oriented x 3 Apperance: appropriately groomed Eye Contact: good eye contact Speech: normal rate/rhythm/volume of speech Affect: + anxious affect (mildly anxious) Principal Diagnosis Anxiety/Depression with thoughts of self harm Discharge Exam Constitutional WD/WN, vitals as above cooperative Eyes + anicteric sclerae ENMT external ear and nose normal, oropharynx normal Neck trachea midline Respiratory normal respiratory effort, lungs clear to auscultation Cardiovascular RRR, no murmur, no edema Heart Sounds: normal S1 and normal S2 Skin no rashes, warm and dry Neurologic awake Psychiatric Orientation: alert and oriented x 3 Apperance: appropriately groomed Eye Contact: + fair eye contact Motor Behavior: no abnormal motor movements Speech: normal rate/rhythm/volume of speech Affect: + blunted affect Mood: + depressed mood Thought Process: goal directed thought process and linear/logical thought proces s Suicidal Thoughts: denies suicidal plan (passive ideation only) Cognition: recent memory grossly intact and remote memory grossly intact Estimated Intelligence: average estimated intelligence Insight: good insight Judgement: good judgement Denies hallucinations/delusions Discharge Data Allergies Allergy/AdvReac Type Severity Reaction Status Date / Time No Known Allergies Allergy Verified 04/02/19 09:26 Consultations 04/02/19 11:27 ED Decision to Admit Stat 04/02/19 14:31 Consult Case Management - Discharge Planning Routine Consult Psychiatry Routine 04/02/19 15:19 Consult Behavioral Health Liaison Routine Hospital Course (1) Anxiety: Ms. Esquivel was admitted to [facility] 04/02/19-04/03/19 for worsening of her underlying anxiety with associated thoughts of self harm. On exam by primary team she reported a reduction in her anxiety level and denied any recurrent thoughts of self harm. She elaborated that her previous thoughts were passive in nature. There are guns in her home, although they are kept in a safe in her basement. She reports not knowing how to operate a gun. Her home dose of Celexa, which had recently been increased from 20mg to 40mg daily, was continued through her hospital stay, as was her trazodone. Psychiatry was consulted during her stay who recommended transfer to an inpatient psychiatry hospital for further treatment, to which Ms. Esquivel was amenable. Outpatient items to do: routine psychiatry follow up (2) Hyponatremia: On admission Mrs. Esquivel's sodium level was 124. The etiology of her hyponatremia was thought to be secondary to reduced oral intake of foods/fluids (patient's daughter reported she had not been eating well in the days preceding hospitalization) vs side effect of her celexa dose (from 20 to 40mg daily). On discharge level was 132. Outpatient items to do: continue to monitor with BMP (3) Depression: patient describes an underlying history of depression with two prior major depressive episodes in her life. She reports a feeling on presentation that she likens to how she began to feel at the start of her prior episodes. Home dose celexa was continued throughout stay. Describes thoughts of passive suicidal ideation preceding admission. There are guns in her home, although they are kept in a safe in her basement. She reports not knowing how to operate a gun. Patient discharged to inpatient psychiatric rehab. (4) Tobacco use disorder: patient normally smokes 0.5 ppd; in days preceding admission she increased to 1.5 ppd in an attempt to self medicate pack year history is around 20 years Outpatient items to do: Tobacco cessation education; assess qualification for chest CT (lung cancer screening) (5) HTN (hypertension): continue home lisinopril (6) Hyperlipidemia: continue home atorvastatin Total Time Total Time Spent Total Time Spent (In Minutes): see attending attestation Discharge Plan Discharge Items Patient Disposition: Transfer Behavioral Health Fac Reason For Visit: HYPONA Discharge Diagnosis: Depression and Anxiety with thoughts of self harm Condition on Discharge: Good Activity: Resume your previous activity Non-emergency contact: Primary Care Provider and Psychiatrist Call non-emergency contact if: you have any medication questions Follow-up/Referrals: Marianne Gonzalez, [Primary Care Provider] - Diet: Regular Addtl Attending Provider Instructions: You were admitted to [facility] on 04/02/19 for increased anxiety with thoughts of self harm. Your home dose of celexa and trazodone were continued while in the hospital. Psychiatry was consulted during your stay. On exam, you stated that your anxiety level had reduced and you no longer were having thoughts of harming yourself. They felt you would benefit from an inpatient admission, which you voluntarily agreed to. You were discharged to their service on 04/03/19. During your hospitalization you were found to have a low sodium level. Your level improved with IV fluids, but still remained low upon discharge. The cause of your low sodium level may have been reduced oral intake before admission, or it may represent a side effect of your recently increased dose of celexa (from 20 to 40mg daily). Please follow up with your primary care provider and psychiatrist upon discharge from the inpatient psychiatric hospital. Pending Studies at Discharge: No Stand-Alone Forms: My [facility] Skilled Items DNR: No Medications and DC Order Prescriptions: New citalopram 40 mg Tablet 40 mg PO DAILY 30 Days Qty: 30 RF: 0 Continued lorazepam 0.5 mg tablet 0.5 mg PO TID PRN (Reason: anxiety) Qty: 60 RF: 0 atorvastatin 20 mg tablet 20 mg PO HS Qty: 90 RF: 0 cholecalciferol (vitamin D3) 2,000 unit capsule 2,000 units PO DAILY Qty: 30 RF: 0 trazodone 50 mg tablet 50 mg PO DAILY RF: 0 lisinopril 20 mg tablet 20 mg PO BID RF: 0 citalopram 40 mg Tablet 40 mg PO DAILY RF: 0 Discharge Orders: Discharge Order (Routine); Ordered 04/03/19 Ordered By: Sheyla Nobles/Other Patient Handouts: Depression Causes, Depression Help Tips Admission Data Admit Date/Time: 04/02/19 14:03 Attending Provider: Tony Cowan Admit Provider: Linda Montana Primary Care Provider: Marianne Gonzalez Other Providers: Linda Montana ; Tabitha Estes Other Interventions: Discharge Summary Assessment (RN) Last Done: 04/03/19 18:04 DC Date/Time DO NOT enter until pt leaves facility: 04/03/19 18:32 Supervising Physician Co-Signing Physician Notes Patient seen and examined with Dr. Villarreal. I agree with their exam findings, review of systems, assessment and plan. I have personally reviewed the lab work and imaging from today. patient was feeling a little better but still anxious, depressed affect. She denied any active suicidal thoughts, it was always more passive with feeling like it would not be bad if she simply did not wake up. reviewed labs, sodium up to 134, her serum osmolality was normal she admitted to not eating or drinking well for weeks secondary to stress and anxiety she was seen by psychiatry, approved for inpatient care exam: WDWN female, lungs CTA bilaterally, S1 and S2 regular, no murmurs psych: flat affect, poor eye contact, speech non-pressured, no hallucinations, denies active suicidal thoughts - Hyponatremia: due to poor oral intake, poor solute intake, resolved with NSS, Na up to 134, serum osmolality normal - Anxiety and depression, with passive suicidal thoughts approved for inpatient psychiatric care, plan for medications, counselling, group and individual therapy Resident Activity Tracking Resident Involvement: Resident Care Provided Care Provided: Adult Hospital Medicine
== END 2019-04-03 18:32 | DRG 641 ==
LOC: ED 08:33 → SUATTDRO 14:03 → 2S 14:03

== ENCOUNTER 2019-04-03 18:25 | Inpatient (IN) ==
[2019-04-03] MEDS ORDERED: SODIUM CHLORIDE 0.65% NA SOLN 45 ML (OCEAN) PRN (19:55)
[2019-04-03] MEDS ORDERED: BISMUTH SUBSALICYLATE PER ML OMNICELL CHARGE PO PRN (19:55)
[2019-04-03] MEDS ORDERED: ALUMINUM/MAGNESIUM SUSP 30 ML UDC PO PRN (19:55)
[2019-04-03] MEDS ORDERED: MAGNESIUM HYDROXIDE SUSP 30 ML UDC PO PRN (19:55)
[2019-04-03] MEDS ORDERED: ACETAMINOPHEN 325 MG TAB PO PRN (19:55)
[2019-04-03] MEDS ORDERED: LORazepam 0.5 MG TAB PO PRN (20:00)
[2019-04-03] MEDS: lisinopriL 20 MG TAB PO SCH (21:04)
[2019-04-03] MEDS: ATORVASTATIN 20 MG TAB PO SCH (21:04)
[2019-04-03] MEDS: TRAZODONE HCL 50 MG TAB PO SCH (21:04)
[2019-04-04] MEDS: CHOLECALCIFEROL 1,000 UNITS TAB PO SCH (08:23)
[2019-04-04] MEDS: lisinopriL 20 MG TAB PO SCH ×2 (08:23→21:13)
--- NOTE | 2019-04-04 08:53 | History & Physical ---
Date of Service April 04, 2019 Impression / Recommendations Impression 58-year-old female with a history of recurrent depression and generalized anxiety disorder who had been managed on citalopram and Lorazepam for years by her PCP, and has decompensated in the past few months in the context of 's declining health. She has been abusing Lorazepam, significantly increased her smoking, and symptoms have worsened to the point that she is unable to function independently at home and has repeatedly sought inpatient mental health treatment. She has not been eating, has lost weight, and had hyponatremia on presentation resulting in admission to the hospitalist service initially. Her PCP just increased citalopram last week to 40 mg, and started trazodone for sleep, which are reasonable initial interventions. She has support from HER-2 adult daughters, and recently started outpatient psychotherapy. Inpatient treatment is medically necessary due to the severity of her symptoms and risk for worsening physical health and suicide if discharged without intervention to reduce risk factors. (1) Depression: 04/04 -reviewed diagnosis and treatment recommendations, including adjustment to medications, therapy in groups on the unit, working on healthy coping skills, and behavioral interventions. -Continue recently increased citalopram 40 mg. -Continue trazodone 50 mg at bedtime, may repeat x1 if needed. -Safety plan: We will enlist family for plan to remove guns in the home, as patient's no longer uses them and she has had multiple episodes of depression with suicidal ideation. Recommend family meeting to include daughters and possibly if able to participate. -Care coordinated with outpatient therapist, Kirstin Acosta, at [facility] [place]. Psychiatric intake scheduled at [facility] for 04/06, may need to reschedule if she is still here. -TSH 0.365 on admission, WNLs. Depression Type: major depressive disorder Major depression recurrence: recurrent Active/Remission status: currently active Major depression episode severity: severe Psychotic features: without psychotic features Qualified Code(s): F33.2 - Major depressive disorder, recurrent severe without psychotic features Present on Admission?: Yes (2) Anxiety: 04/04 -citalopram increased as above. Offer hydroxyzine as needed for anxiety. -Lorazepam discontinued due to abuse of the medication, risks including cognitive impairment, falls, delirium, and history of substance abuse (alcoholism). Coordinate care with prescribing physician, Dr. Gonzalez -send re cords. -Work on behavioral strategies for managing anxiety, relaxation techniques, and healthy coping skills. Present on Admission?: Yes (3) Hyponatremia: 04/04 -sodium 124 on admission, 132 as of 04/03/2019. Encourage good nutrition, and recheck BMP tomorrow. Present on Admission?: Yes (4) Tobacco use disorder: 04/04 -smoking cessation education, offer patch and/or nicotine gum as needed for cravings here. Present on Admission?: Yes (5) HTN (hypertension): 04/04 -continue lisinopril 20 mg twice daily, which was increased by her PCP last week, and again increased on the hospitalist service due to ongoing hypertension. BP today 142/92, continue to monitor and adjust as needed. Anxiety is likely contributing to hypertension and tachycardia. Present on Admission?: Yes (6) Hyperlipidemia: Continue home dose of atorvastatin. Present on Admission?: Yes 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 (rifles and pistol)) Health Problems: Yes Mental Health Diagnoses: Yes Substance Use Disorders: Yes Previous Attempt: No Family History of Suicide: Yes Previous Psychiatric Hospitalization: Yes Hopelessness: Yes Smoker: Yes Protective Factors Assessment Zoroastrian Beliefs: Yes : Yes Responsible for Young Children: No Employed: Yes Stable Relationships: Yes Supportive Family: Yes Psychiatric History Identifying Data GEOVANNI AVENDAÑO is a 58-year-old F who currently lives in [place] with her , has a history of depression and anxiety, and was admitted on 04/03/19 18:34 on a 201 voluntary commitment for worsening mood and anxiety and inability to function at home. Chief Complaint "It's been bad". History of Present Illness Patient presented to the ER 04/02/2017 reporting worsening mood, anxiety, and suicidal thoughts. She was hyponatremic with a sodium of 124, so was admitted to the hospitalist service, and was seen by the psychiatry consult service 04/03/2019. Assessment per Nanci Thorpe PA-C: She has been struggling with depressive symptoms "since the summer." She reports to previous "major depressive episodes in my life." The first depressive episode occurred after the of her infant son. Patient admits that she was suicidal at that time, without active furtherance. She reportedly received inpatient treatment and was started on antidepressant medications. Patient states that her depressive symptoms returned during her with her third child, and was unable to emotionally connect with this daughter. Patient received inpatient treatment again at this time to treat depression and resume medications. Patient states she is remained on ant idepressant medication since that time, denied significant depressive episodes until recently. Patient states that she went to her primary care physician about her mood concerns over the last several months, and her dose of citalopram was titrated from 20 mg to 40 mg. Patient was also initiated on trazodone 50 mg to help with sleep. Both of these medication changes were made roughly a week prior to this admission. Patient also takes lorazepam 0.5 mg 3 times daily as needed, and admits she is taking this medication more frequently than it is prescribed in order to manage her elevated anxiety level. Patient states that she and her daughters called the crisis line regarding her suicidality, and she was told she did not meet criteria for a field evaluation, but could present to the ED or the [facility]. Patient's daughter accompanied the patient to the [facility], where she was again told she did not meet criteria for inpatient psychiatric admission. Patient followed up with her outpatient therapist shortly after these events, but continued to have passive suicidality. She admits that she has not been properly caring for herself at home, especially as the anxiety has been increasing over the last several days. Patient believes this most recent depressive episode is heavily related to her 's deteriorating health. The patient reports that her was diagnosed with COPD "a few years ago", and that he is likely approaching the end of his life. Patient states that as she has been struggling to care for her during this time, she has noticed "my thoughts and feelings have become distorted." When asked to explain this statement, the patient initially reports that this "distortion" is the fact that activities and visits that historically had brought her suman no longer do so. Patient states "I even go to places I know I like in order to feel suman, but I still do not." When asked about the logical or bizarre thoughts, the patient does mention a situation that she states she wishes to keep private from her daughters. Patient shares that her has been taking her for several nights to turn down his oxygen level while he is sleeping, so he can pass peacefully. Patient denies having truly consider this, but states "I did it the other night, I do not even know why, I immediately turned it back up." The patient does admit that her concentration has been reduced, and there are periods of time in which she feels confused. Patient endorses difficulty falling and staying asleep, reduced appetite with a 30 pound weight loss in the last 2-3 months, decreased energy level, and hopelessness. Patient admits that she does have suicidal thoughts, but does not have a plan or intent to act on these thoughts. Patient admits that she is scared to go home and her current condition, as she is worried about the worsening of these thoughts. In regard to anxiety, the patient endorses racing thoughts and excessive worrying. She states "I worry all the time about how I can get better myself and take care of him." Patient admits to physical symptoms as a result of anxiety, and endorses headaches, tachycardia, and "numbness" that last "all day". Patient mentions several times that she has "obsessions", which she describes as a need to be on her phone looking up various topics. Patient states "initially I was obsessed with ideas on how to get [my ] better." She states now that she has been "obsessed with researching [place]." Collateral information is obtained from the patient's 2 adult daughters with her permission. Daughters agree that her symptoms have been ongoing since the summer months. They state it seems as though their mother is "not there." They state that he is trying to be supportive, offering her the opportunity to leave the house and "get away" with family. They state the patient may show up at their homes at 7:00 in the morning, stating she cannot be home. They then states "but when we tried to take her places, she has a lot of anxiety about not being at home." They admit that the patient has not been eating or sleeping well, and that she endorsed suicidal ideation to them yesterday, which prompted the visit to the emergency room. They also state they were concerned as their mother reported improvement in sleep the evening of 03/31/19, later admitting that she had consumed alcohol and believed this was why. They state that her mother has been sober for 16 years, and that the alcohol use is a concern for him as well. Patient's daughter states that they do not feel overly comfortable with the idea of their mother returning home and her current condition, and feel she would benefit from inpatient psychiatric treatment at this time. She was continued on her home psychotropic medications, and as of yesterday sodium had improved to 132. She was medically cleared and transferred to the behavioral health unit voluntarily. On my assessment today, she reports worsening mood and anxiety since the summer, which she initially thought was due to her 's declining health (COPD), so didn't seek treatment. She had been on citalopram for decades, since she was 30 years old and has depression after the of her daughter. She reports low mood most of the time, was having crying spells during the summer but now feels emotionally dulled "just nothing," poor concentration, anhedonia (used to enjoy [employer] football and shopping), decreased sleep with inability to fall asleep and stay asleep, and guilty feelings. She has not been eating due to decreased appetite, and has lost 7-8 lbs in the past couple months. She feels unable to function, has had to manager discovery due to feeling overwhelmed, anxious and shaky, and has had repeated presentations for IP treatment ([facility] and here). She has a history of alcoholism and had not drank in 16 years, but had one drink the night prior to presentation, and feels guilty about it. She endorses high anxiety that is constant, worries excessively about "everything," feels on edge and unable to relax. She says she was "abusing Ativan" at home, taking 3-4 a day when she was only prescribed it once daily. It has been prescribed by her PCP Dr. Gonzalez, last Rx for #90 tabs of 0.5 mg tabs filled 02/23/19. She has been smoking excessively, increased from 1/2 pack/day to 1.5 pack/day, and then developed nasal congestion. She reports feeling overwhelmed with her 's declining health, at times wishing "he would just pass." She reports that one night she turned his oxygen down thinking it would help him to pass peacefully, and that he had been talking about wanting to . 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 She denies panic, PTSD, OCD, luis, and psychosis. She denies suicidal thoughts but feels unsafe outside of the hospital due to inability to function. Her PCP just increased her citalopram to 40mg last week, and added trazodone for sleep, which has been helpful. She denies side effects from the medications. Her BP has also been high and her lisinopril dose was recently increased. She reports good support from her daughters who both live locally, and they visited last evening. Past Psychiatric History Previous Psych History: First episode of depression occurred after the of her first child, a son, who a few days after he (patient in early 20s), second episode while with her second daughter when patient was in her early 30s. She was treated with an older antidepressant during her first episode (amitriptyline?) and citalopram was started during the second episode. Saw psychiatrists in the past but doesn't recall their names. H/o therapy as well Current Psychiatric Diagnosis: Depression, recurrent Outpatient Services: Therapist Kirstin Acosta at [facility] [place]. Referred to [facility] for initial psychiatric evaluation scheduled 04/06/19. Previous Psych Admissions: [facility] first episode of depression, [place] second episode Do You Have Access To A Gun?: Yes ( was a angel, has multiple guns in basement (rifles and pistol)) History of Previous Suicide Attempt: No Past Medication Trials: Thinks she was on a TCA during first episode of depression (?amitriptyline) citalopram x 30 years trazodone - started about a week prior to hospitalization Lorazepam -has been on it for years, recently taking 4 times the prescribed dose daily Allergies Allergy/AdvReac Type Severity Reaction Status Date / Time No Known Allergies Allergy Verified 04/02/19 09:26 Home Medications Home Medications Medication Instructions Recorded Confirmed Type atorvastatin 20 mg tablet 20 mg PO HS #90 tab 01/06/19 04/02/19 History cholecalciferol (vitamin D3) 2,000 2,000 units PO DAILY #30 cap 01/06/19 04/02/19 History unit capsule lorazepam 0.5 mg tablet 0.5 mg PO TID PRN #60 tab 03/29/19 04/02/19 Rx citalopram 40 mg PO DAILY 04/02/19 04/02/19 History lisinopril 20 mg PO BID 04/02/19 04/02/19 History trazodone 50 mg PO DAILY 04/02/19 04/02/19 History citalopram 40 mg PO DAILY 30 Days #30 tab 04/03/19 Rx Family History Family History of: Anxiety (mother), Alcoholism/Drug Abuse (paternal grandfather, father) and Suicide Completion (paternal grandfather of self inflicted gunshot would at age 80) Alcohol History Hx of Alcohol Use Over the Past 12 Months: Yes ("one last week, 1/2 a mara") H/o alcoholism for many years, was a daily beer drinker, cassed problems in relationships. Went to rehab 16 years ago and stayed sober afterwards. Smoking Use Have You Smoked or Used Tobacco Products in the Last 30 Days: Yes tobacco type: cigarettes Smoking Status: Heavy tobacco smoker Smoking packs per day: 1 Substance History Hx of Prescription Med Misuse Over the Past 12 Months: No Hx of Over the Counter Med Misuse Over the Past 12 Months: No Hx of Inhalent Misuse Over the Past 12 Months: No Hx of Organic Substance Use Over the Past 12 Months: No Hx of Illegal Substances/Street Drug Use Over Past 12 Months: No Problems as a Result of Past Substance Use: Relationships Ended and Other Problems as a Result of Past Substance Use Comments: alcoholism in past - sober for 16 years Personal History Living Arrangements: Home Living Arrangements Comments: with in [place] Born In: [place], [place] Childhood: Grew up near [place], raised by both parents. 1 younger brother. 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 Denies history of abuse. Patient History Social History Preferred Language: Serbian Communication Ability: Effective Visual Impairment: No Limitations Hearing Ability: Normal Licensed Pharmacist Required: No Beliefs That Will Affect Care: Zoroastrian (Baptism) marital status: Current Living Situation: Spouse Feels Safe at Home: Yes Smoking Status: Heavy tobacco smoker Tobacco Type: cigarettes ; Age Started Using Tobacco: 23 ; packs per day: 1 ; Cigarettes Per Day: 10 a day ; Second Hand Exposure: No ; Hx Alcohol Use: No Hx Substance Use: No Dental Care, Regularly: Yes Review of Systems Review of Systems: All systems reviewed & are unremarkable except as noted in HPI & below nasal congestion Physical Exam Psychiatric: Orientation: alert, oriented x 3 and cooperative Apperance: appropriately dressed and appropriately groomed Appears older than stated age Eye Contact: good eye contact Motor Behavior: steady gait and station and no abnormal motor movements Speech: normal rate/rhythm/volume of speech Affect: + depressed affect, + anxious affect and mood congruent with affect Mood: + depressed mood and + anxious mood Thought Process: goal directed thought process Thought Content: reality based without delusions Suicidal Thoughts: denies suicidal thoughts Homicidal Thoughts: denies homicidal thoughts Hallucinations: no auditory hallucinations and no visual hallucinations Cognition: recent memory grossly intact, remote memory grossly intact, attention grossly intact and language grossly intact Estimated Intelligence: consistent with education level Insight: + fair insight Judgement: + fair judgement Vital Signs (Past 24 Hours): Last Vital Signs Temp 36.7 C 04/04/19 06:44 Pulse 96 H 04/04/19 06:46 Resp 20 04/04/19 06:44 BP 142/92 H 04/04/19 06:46 Exam Statement: A physical exam was performed on the medical floor prior to admission to the unit by Dr. Villarreal. I accept that physical as correct/medical clearance for the inpatient physical exam. Results & Data Current Inpatient Medications Current Inpatient Medications: Current Inpatient Medications Acetaminophen (Tylenol) 650 mg PO Q4H PRN PRN Reason: Headache or Minor Fever Stop: 05/03/19 19:54 Al Hydrox/Mg Hydrox/Simethicone (Maalox) 30 ml PO Q4H PRN PRN Reason: GI Upset Stop: 05/03/19 19:54 Atorvastatin Calcium (Lipitor) 20 mg PO HS GERRI Stop: 05/03/19 21:59 Last Admin: 04/03/19 21:04 Dose: 20 mg Documented by: Bismuth Subsalicylate (Kaopectate) 15 ml PO PRN PRN PRN Reason: Loose Stool Stop: 05/03/19 19:54 Hydroxyzine HCl (Vistaril) 25 mg PO Q4H PRN PRN Reason: Anxiety Stop: 05/03/19 19:54 Last Admin: 04/04/19 06:55 Dose: 25 mg Documented by: Hydroxyzine HCl (Vistaril) 50 mg PO HSZ PRN PRN Reason: Insomnia Stop: 05/03/19 19:54 Last Admin: 04/03/19 23:01 Dose: 50 mg Documented by: Lisinopril (Zestril) 20 mg PO BID GERRI Stop: 05/03/19 20:59 Last Admin: 04/04/19 08:23 Dose: 20 mg Documented by: Lorazepam (Ativan) 0.5 mg PO TID PRN PRN Reason: Anxiety Stop: 05/03/19 19:59 Last Admin: 04/03/19 21:10 Dose: 0.5 mg Documented by: Magnesium Hydroxide (Milk Of Magnesia) 30 ml PO DAILY PRN PRN Reason: Constipation Stop: 05/03/19 19:54 Sodium Chloride ([place] Nasal) 1 - 2 sprays NA PRN PRN PRN Reason: Nasal Dryness/Congestion Stop: 05/03/19 19:54 Trazodone HCl (Desyrel) 50 mg PO HS GERRI Stop: 05/03/19 21:59 Last Admin: 04/03/19 21:04 Dose: 50 mg Documented by: Vitamin D (Vitamin D3) 2,000 units PO QAM GERRI Stop: 05/04/19 08:59 Last Admin: 04/04/19 08:23 Dose: 2,000 units Documented by: CPT Code CPT Code Initial Hospital Care: [id number]
[2019-04-04] MEDS: CITALOPRAM 40 MG TAB PO SCH (11:04)
[2019-04-04] MEDS: BENZONATATE 100 MG CAPSULE PO PRN (11:04)
[2019-04-04] MEDS: LORazepam 0.5 MG TAB PO PRN ×2 (17:51→22:40)
[2019-04-04] MEDS: ATORVASTATIN 20 MG TAB PO SCH (21:13)
[2019-04-04] MEDS: TRAZODONE HCL 50 MG TAB PO SCH (21:13)
[2019-04-05 08:15] LABS: BUN Creatinine Ratio 14.6 (10-20); Blood Urea Nitrogen 10 mg/dl (7-18); Calcium 9.4 mg/dl (8.5-10.1); Carbon Dioxide 28 mmol/L (21-32); Chloride 97 mmol/L (98-107); Est GFR (African American) 109.7; Est GFR (Non-African American) 94.6; Glucose 93 mg/dl (70-99); Potassium 4.1 mmol/L (3.5-5.1); Sodium 131 mmol/L (136-145)
[2019-04-05] MEDS: CITALOPRAM 40 MG TAB PO SCH (09:22)
[2019-04-05] MEDS: lisinopriL 20 MG TAB PO SCH ×2 (09:22→21:07)
[2019-04-05] MEDS: CHOLECALCIFEROL 1,000 UNITS TAB PO SCH (09:22)
--- NOTE | 2019-04-05 10:06 | Psychiatric Progress Note ---
Date of Service April 05, 2019 Impression / Recommendations Impression 58-year-old female with a history of recurrent depression and generalized anxiety disorder who had been managed on citalopram and lorazepam for years by her PCP, and has decompensated in the past few months in the context of 's declining health. She has been abusing Lorazepam, significantly increased her smoking, and symptoms have worsened to the point that she is unable to function independently at home and has repeatedly sought inpatient mental health treatment. She has not been eating, has lost weight, and had hyponatremia on presentation resulting in admission to the hospitalist service initially. Her PCP just increased citalopram last week to 40 mg, and started trazodone for sleep, which are reasonable initial interventions. Trazodone will be titrated further to target sleep, and she has been tapered off of lorazepam due to abuse of the medication. She had a family meeting today with her two adult daughters, has been referred for outpatient psychiatry, and recently started outpatient psychotherapy. Inpatient treatment is medically necessary due to the severity of her symptoms and risk for worsening physical health and suicide if discharged without intervention to reduce risk factors. (1) Depression: 04/04 -reviewed diagnosis and treatment recommendations, including adjustment to medications, therapy in groups on the unit, working on healthy coping skills, and behavioral interventions. -Continue recently increased citalopram 40 mg. -Continue trazodone 50 mg at bedtime, may repeat x1 if needed. -Safety plan: We will enlist family for plan to remove guns in the home, as patient's no longer uses them and she has had multiple episodes of depression with suicidal ideation. Recommend family meeting to include daug hters and possibly if able to participate. -Care coordinated with outpatient therapist, Kirstin Acosta, at [facility]. Psychiatric intake scheduled at [facility] for 04/06, may need to reschedule if she is still here. -TSH 0.365 on admission, WNLs. 04/05 -patient reporting improved mood, tolerating citalopram well. -Family meeting with daughters; they agreed to remove guns from the home and secure medications prior to discharge. -Sleep improved on trazodone, but still waking up midway through the night. Increase dose to 100 mg at bedtime. Present on Admission?: Yes (2) Anxiety: 04/04 -citalopram increased as above. Offer hydroxyzine as needed for anxiety. -Lorazepam will be tapered off due to abuse of the medication, risks including cognitive impairment, falls, delirium, and history of substance abuse (alcoholism). -Work on behavioral strategies for managing anxiety, relaxation techniques, and healthy coping skills. 04/05 -patient reporting improved anxiety, and is working on healthier ways to cope. Present on Admission?: Yes (3) Benzodiazepine abuse: 04/05/2019: Patient reports abusing lorazepam, taking up to 4 times the daily prescribed dose for the past couple of weeks. It appears that she has been taking more than prescribed for the past month and a half, as she filled her last 90-day prescription 3 weeks early. She last filled #90 tabs 0.5 mg lorazepam on 02/23/2019, and ran out in less than a month and a half. She has been getting 0.5 mg twice daily here the past couple of days, does not have symptoms of withdrawal, so will reduce further to 0.5 mg daily. Contacted her PCP, Dr. Gonzalez, who is prescribing medication to review. -Patient's daughter state that her is also prescribed lorazepam, and they have agreed to lock and secure medications in the home for safety purposes. Again reviewed the risks of benzodiazepines with the patient, and recommendations to taper off this medication and avoid controlled substances given her addiction history. Present on Admission?: Yes (4) Hyponatremia: 04/04 -sodium 124 on admission, 132 as of 04/03/2019. Encourage good nutrition, and recheck BMP tomorrow. 04/05 -sodium remains low at 131 today. Reviewing lab results from the past 16 months shows that sodium is chronically low. Will ensure follow-up with PCP as recommended by the hospitalist (5) Tobacco use disorder: 04/04 -smoking cessation education, offer patch and/or nicotine gum as needed for cravings here. (6) HTN (hypertension): 04/04 -continue lisinopril 20 mg twice daily, which was increased by her PCP last week, and again increased on the hospitalist service due to ongoing hypertension. BP today 142/92, continue to monitor and adjust as needed. Anxiety is likely contributing to hypertension and tachycardia. (7) Hyperlipidemia: Continue home dose of atorvastatin. 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 (rifles and pistol)) Health Problems: Yes Mental Health Diagnoses: Yes Substance Use Disorders: Yes Previous Attempt: No Family History of Suicide: Yes Previous Psychiatric Hospitalization: Yes Hopelessness: Yes Smoker: Yes Protective Factors Assessment Jehovah'S Witness Beliefs: Yes : Yes Responsible for Young Children: No Employed: Yes Stable Relationships: Yes Supportive Family: Yes Interval History Identifying Information GEOVANNI AVENDAÑO is a 58-year-old F who currently lives in [place] with her , has a history of depression and anxiety, and was admitted on 04/03/19 18:34 on a 201 voluntary commitment for worsening mood and anxiety and inability to function at home. Chief Complaint "A little better". Review of Systems Sleep Information Total Hours of Sleep: 6.25 Sleep Comments: pt given vistaril per rn. pt with DEANNE @[facility]. pt currently wathing tv. pt on q-15 minute checks Meal Information Percent Meal Consumed - Breakfast: 100 Percent Meal Consumed - Lunch: 100 Percent Meal Consumed - Dinner: 100 Subjective Subjective Patient was seen & assessed and interval progress reviewed with treatment team. Staff report they spoke with her daughter, Hannah, for collateral information: She noticed a decline in the patient's mood 2 months ago, that she was having more difficulty with focus, and did not appear to be enjoying activities like she used to. They became so worried about her that they called crisis on 03/26/2019, and went to the [facility] for an assessment, but [facility]. She became increasingly depressed over the 2 days prior to this hospitalization, and described her as altered" not all there" during that time period. On my assessment today, the patient reports that she had high anxiety overnight, woke up sweating and had difficulty going back to sleep, so got Ativan. She has been receiving it twice daily, and reports taking it 3-4 times a day at home for the past two weeks, and ran out of her prescription early. Per the PDMP, she has been prescribed lorazepam since 2016, and initially filling every 2 months, and filling regularly for the last 2 years. She filled her last prescription 3 weeks early, on 02/23/2019, and ran out in less than a month and a half. She says she has already requested a refill through the mail order service. Again reviewed the risks of this medication and recommendations to taper off of it, she endorses anxiety about not having it, but also admits to inability to control her use of the medication and understanding of the reasons to discontinue it. She does think trazodone is helping for sleep, but still waking up overnight, and is agreeable to increasing the dose. She denies side effects to citalopram. She denies suicidal thoughts, and states that mood and anxiety are both improved from admission. She feels supported by her daughters, and is working on "trying to change my negative thoughts to positive ones." Physical Exam Psychiatric Orientation: alert and cooperative Apperance: appropriately dressed and appropriately groomed; + did not appear stated age Appears older than stated age. Eye Contact: good eye contact Motor Behavior: steady gait and station and no abnormal motor movements Speech: normal rate/rhythm/volume of speech Affect: + blunted affect Slightly more reactive than yesterday "Better." Thought Process: goal directed thought process Thought Content: reality based without delusions Suicidal Thoughts: denies suicidal thoughts Homicidal Thoughts: denies homicidal thoughts Hallucinations: no auditory hallucinations Cognition: recent memory grossly intact, attention grossly intact and language grossly intact Insight: + fair insight Judgement: + poor judgement Vital Signs (Past 24 Hours) Last Vital Signs Temp 36.7 C 04/05/19 06:44 Pulse 65 04/05/19 06:45 Resp 16 04/05/19 06:44 BP 92/71 L 04/05/19 06:45 Results & Data Laboratory Results Laboratory Results - last 24 hr 04/05/19 07:27 Sodium 131 L Potassium 4.1 Chloride 97 L Carbon Dioxide 28 Anion Gap 6.0 BUN 10 Creatinine 0.69 Est Cr Clr Drug Dosing Not Reportable Est GFR ( Amer) 109.7 Est GFR (Non-Af Amer) 94.6 BUN/Creatinine Ratio 14.6 Glucose 93 Calcium 9.4 Current Inpatient Medications Current Inpatient Medications: Current Inpatient Medications Acetaminophen (Tylenol) 650 mg PO Q4H PRN PRN Reason: Headache or Minor Fever Stop: 05/03/19 19:54 Al Hydrox/Mg Hydrox/Simethicone (Maalox) 30 ml PO Q4H PRN PRN Reason: GI Upset Stop: 05/03/19 19:54 Atorvastatin Calcium (Lipitor) 20 mg PO HS [facility]RI Stop: 05/03/19 21:59 Last Admin: 04/04/19 21:13 Dose: 20 mg Documented by: Benzonatate (Tessalon Perle) 100 mg PO TID PRN PRN Reason: Cough Stop: 05/04/19 09:43 Last Admin: 04/04/19 11:04 Dose: 100 mg Documented by: Bismuth Subsalicylate (Kaopectate) 15 ml PO PRN PRN PRN Reason: Loose Stool Stop: 05/03/19 19:54 Citalopram Hydrobromide (Celexa) 40 mg PO QAM [facility] Stop: 05/04/19 09:59 Last Admin: 04/05/19 09:22 Dose: 40 mg Documented by: Hydroxyzine HCl (Vistaril) 25 mg PO Q4H PRN PRN Reason: Anxiety Stop: 05/03/19 19:54 Last Admin: 04/04/19 14:54 Dose: 25 mg Documented by: Hydroxyzine HCl (Vistaril) 50 mg PO HSZ PRN PRN Reason: Insomnia Stop: 05/03/19 19:54 Last Admin: 04/04/19 22:36 Dose: 50 mg Documented by: Lisinopril (Zestril) 20 mg PO BID [facility] Stop: 05/03/19 20:59 Last Admin: 04/05/19 09:22 Dose: 20 mg Documented by: Lorazepam (Ativan) 0.5 mg PO BID PRN PRN Reason: Anxiety Stop: 05/03/19 19:59 Last Admin: 04/04/19 22:40 Dose: 0.5 mg Documented by: Magnesium Hydroxide (Milk Of Magnesia) 30 ml PO DAILY PRN PRN Reason: Constipation Stop: 05/03/19 19:54 Sodium Chloride ([place] Nasal) 1 - 2 sprays NA PRN PRN PRN Reason: Nasal Dryness/Congestion Stop: 05/03/19 19:54 Trazodone HCl (Desyrel) 50 mg PO HS [facility]RI Stop: 05/03/19 21:59 Last Admin: 04/04/19 21:13 Dose: 50 mg Documented by: Vitamin D (Vitamin D3) 2,000 units PO QAM [facility] Stop: 05/04/19 08:59 Last Admin: 04/05/19 09:22 Dose: 2,000 units Documented by: Mental Health & Subst Abuse Tx Psychiatrist Name of Psychiatrist: [facility] Psychiatrist's Date of Appointment with Psychiatrist: 04/06/19 Time of Appointment with Psychiatrist: 10:00 a.m. Psychiatric Appointment Comment: [address] [place] [address] Therapist Name of Therapist: [facility] Kirstin Acosta Therapist's Date of Therapist Appointment: 04/10/19 Time of Therapist Appointment: 3:00 p.m. Therapy Appointment Comment: [address] [place] [address] Post Discharge Appointments Primary Care Physician Name Of Family Doctor: [facility] - Dr. Gonzalez Primary Care Date of Appointment with PCP: 04/18/19 Time of Appointment with PCP: 9:20 a.m. Provider Appointment Comment: [address] [facility], [address], [place] [address] Contact Information Discharge Discharge Address: [address] [place] [address] (1) Depression Active/Remission status: currently active Depression Type: major depressive d isorder Major depression episode severity: severe Major depression recurrence: recurrent Psychotic features: without psychotic features Qualified Code(s): F33.2 - Major depressive disorder, recurrent severe without psychotic features
[2019-04-05] MEDS: NICOTINE 21 MG/24 HR TDSY TD SCH (13:02)
[2019-04-05] MEDS: ATORVASTATIN 20 MG TAB PO SCH (21:07)
[2019-04-05] MEDS: BENZONATATE 100 MG CAPSULE PO PRN (21:54)
[2019-04-05] MEDS ORDERED: TRAZODONE HCL 100 MG TAB PO SCH (22:00)
[2019-04-05] MEDS: LORazepam 0.5 MG TAB PO PRN (22:34)
[2019-04-06] MEDS: CHOLECALCIFEROL 1,000 UNITS TAB PO SCH (07:29)
[2019-04-06] MEDS: CITALOPRAM 40 MG TAB PO SCH (07:29)
[2019-04-06] MEDS: lisinopriL 20 MG TAB PO SCH (07:30)
[2019-04-06] MEDS: NICOTINE 21 MG/24 HR TDSY TD SCH (07:53)
--- NOTE | 2019-04-06 08:06 | Discharge Summary ---
Date of Service April 06, 2019 History of Present Illness Patient presented to the ER 04/02/2017 reporting worsening mood, anxiety, and suicidal thoughts. She was hyponatremic with a sodium of 124, so was admitted to the hospitalist service, and was seen by the psychiatry consult service 04/03/2019. Assessment per Nanci Thorpe PA-C: She has been struggling with depressive symptoms "since the summer." She reports to previous "major depressive episodes in my life." The first depressive episode occurred after the of her infant son. Patient admits that she was suicidal at that time, without active furtherance. She reportedly received inpatient treatment and was started on antidepressant medications. Patient states that her depressive symptoms returned during her with her third child, and was unable to emotionally connect with this daughter. Patient received inpatient treatment again at this time to treat depression and resume medications. Patient states she is remained on antidepressant medication since that time, denied significant depressive e pisodes until recently. Patient states that she went to her primary care physician about her mood concerns over the last several months, and her dose of citalopram was titrated from 20 mg to 40 mg. Patient was also initiated on trazodone 50 mg to help with sleep. Both of these medication changes were made roughly a week prior to this admission. Patient also takes lorazepam 0.5 mg 3 times daily as needed, and admits she is taking this medication more frequently than it is prescribed in order to manage her elevated anxiety level. Patient states that she and her daughters called the crisis line regarding her suicidality, and she was told she did not meet criteria for a field evaluation, but could present to the ED or the [facility]. Patient's daughter accompanied the patient to the [facility], where she was again told she did not meet criteria for inpatient psychiatric admission. Patient followed up with her outpatient therapist shortly after these events, but continued to have passive suicidality. She admits that she has not been properly caring for herself at home, especially as the anxiety has been increasing over the last several days. Patient believes this most recent depressive episode is heavily related to her 's deteriorating health. The patient reports that her was diagnosed with COPD "a few years ago", and that he is likely approaching the end of his life. Patient states that as she has been struggling to care for her during this time, she has noticed "my thoughts and feelings have become distorted." When asked to explain this statement, the patient initially reports that this "distortion" is the fact that activities and visits that historically had brought her suman no longer do so. Patient states "I even go to places I know I like in order to feel suman, but I still do not." When asked about the logical or bizarre thoughts, the patient does mention a situation that she states she wishes to keep private from her daughters. Patient shares that her has been taking her for several nights to turn down his oxygen level while he is sleeping, so he can pass peacefully. Patient denies having truly consider this, but states "I did it the other night, I do not even know why, I immediately turned it back up." The patient does admit that her concentration has been reduced, and there are periods of time in which she feels confused. Patient endorses difficulty falling and staying asleep, reduced appetite with a 30 pound weight loss in the last 2-3 months, decreased energy level, and hopelessness. Patient admits that she does have suicidal thoughts, but does not have a plan or intent to act on these thoughts. Patient admits that she is scared to go home and her current condition, as she is worried about the worsening of these thoughts. In regard to anxiety, the patient endorses racing thoughts and excessive worrying. She states "I worry all the time about how I can get better myself and take care of him." Patient admits to physical symptoms as a result of anxiety, and endorses headaches, tachycardia, and "numbness" that last "all day". Patient mentions several times that she has "obsessions", which she de scribes as a need to be on her phone looking up various topics. Patient states "initially I was obsessed with ideas on how to get [my ] better." She states now that she has been "obsessed with researching [place]." Collateral information is obtained from the patient's 2 adult daughters with her permission. Daughters agree that her symptoms have been ongoing since the summer months. They state it seems as though their mother is "not there." They state that he is trying to be supportive, offering her the opportunity to leave the house and "get away" with family. They state the patient may show up at their homes at 7:00 in the morning, stating she cannot be home. They then states "but when we tried to take her places, she has a lot of anxiety about not being at home." They admit that the patient has not been eating or sleeping well, and that she endorsed suicidal ideation to them yesterday, which prompted the visit to the emergency room. They also state they were concerned as their mother reported improvement in sleep the evening of 03/31/19, later admitting that she had consumed alcohol and believed this was why. They state that her mother has been sober for 16 years, and that the alcohol use is a concern for him as well. Patient's daughter states that they do not feel overly comfortable with the idea of their mother returning home and her current condition, and feel she would benefit from inpatient psychiatric treatment at this time. She was continued on her home psychotropic medications, and as of yesterday sodium had improved to 132. She was medically cleared and transferred to the behavioral health unit voluntarily. On my assessment today, she reports worsening mood and anxiety since the summer, which she initially thought was due to her 's declining health (COPD), so didn't seek treatment. She had been on citalopram for decades, since she was 30 years old and has depression after the of her daughter. She reports low mood most of the time, was having crying spells during the summer but now feels emotionally dulled "just nothing," poor concentration, anhedonia (used to enjoy [employer] football and shopping), decreased sleep with inability to fall asleep and stay asleep, and guilty feelings. She has not been eating due to decreased appetite, and has lost 7-8 lbs in the past couple months. 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 She has a history of alcoholism and had not drank in 16 years, but had one drink the night prior to presentation, and feels guilty about it. She endorses high anxiety that is constant, worries excessively about "everything," feels on edge and unable to relax. She says she was "abusing Ativan" at home, taking 3-4 a day when she was only prescribed it once daily. It has been prescribed by her PCP Dr. Gonzalez, last Rx for #90 tabs of 0.5 mg tabs filled 02/23/19. She has been smoking excessively, increased from 1/2 pack/day to 1.5 pack/day, and then developed nasal congestion. She reports feeling overwhelmed with her 's declining health, at times wishing "he would just pass." She reports that one night she turned his oxygen down thinking it would help him to pass peacefully, and that he had been talking about wanting to . 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 She denies panic, PTSD, OCD, luis, and psychosis. She denies suicidal thoughts but feels unsafe outside of the hospital due to inability to function. Her PCP just increased her citalopram to 40mg last week, and added trazodone for sleep, which has been helpful. She denies side effects from the medications. Her BP has also been high and her lisinopril dose was recently increased. She reports good support from her daughters who both live locally, and they visited last evening. Physical Exam Psychiatric Orientation: alert, oriented x 3 and cooperative Apperance: appropriately dressed and appropriately groomed; + did not appear stated age (appears older than stated age) Eye Contact: good eye contact Motor Behavior: steady gait and station and no abnormal motor movements Speech: normal rate/rhythm/volume of speech Affect: + anxious affect and + blunted affect Mood: + anxious mood ("I'm a little apprehensive, but ok") Thought Process: goal directed thought process, clear/coherent thought process and thought association intact Thought Content: reality based without delusions; no hopelessness Suicidal Thoughts: denies suicidal thoughts, denies suicidal plan and denies suicidal intent Homicidal Thoughts: denies homicidal thoughts Hallucinations: no auditory hallucinations and no visual hallucinations Cognition: attention grossly intact and language grossly intact Insight: + fair insight Judgement: + fair judgement Vital Signs (Past 24 Hours) Last Vital Signs Temp 36.9 C 04/06/19 07:21 Pulse 97 H 04/06/19 07:21 Resp 18 04/06/19 07:21 BP 120/72 04/06/19 07:21 Principal Diagnosis - Major depressive disorder - Anxiety - Benzodiazepine abuse Psychiatric Data 58-year-old female admitted voluntarily for inpatient psychiatric treatment on 04/03/19, transferred from the medical floor where she was treated for hyponatremia. Pt has a history of recurrent depression and generalized anxiety disorder who had been managed on citalopram and lorazepam for years by her PCP, and has decompensated in the past few months in the context of 's declining health. She has been abusing Lorazepam, significantly increased her smoking, and symptoms have worsened to the point that she is unable to function independently at home and has repeatedly sought inpatient mental health treatment. She has not been eating, has lost weight, and had hyponatremia on presentation resulting in admission to the hospitalist service initially. Her PCP just increased citalopram last week to 40 mg, and started trazodone for sleep, which are reasonable initial interventions. Trazodone was be titrated further to 100mg qHS to target sleep. Initial plan was to taper p atient off lorazepam due to admitting to abusing the medication. After coordination of care with patient's PCP, it was determined she would continue the 2-week taper sent to her pharmacy - will plan to discontinue thereafter. She had a family meeting during her admission with her two adult daughters. Pt had already been referred for outpatient psychiatry, and plan was to keep her appointment scheduled for 04/06/19. Alternative was to reschedule appointment, with earliest appointment not being for several months. Pt had recent started outpatient psychotherapy, and appointment time was confirmed prior to discharge. Based on review of patient's case and their current presentation, risk of harm to self or others is no longer perceived to be acute. Management of symptoms on an outpatient basis seems the most appropriate and least restrictive setting. Pt seems appropriate for discharge with recommendation for consistent follow-up with outpatient psychiatric prescriber and therapist. Pt verbalized understanding of discharge plan reviewed and is agreeable with plan to be discharged home today. Day of Discharge Assessment Patient's case was reviewed and discussed with nursing and social work. Staff reports the patient has continued to do well in treatment. She reports improvement in mood and resolution of SI. Daughters were involved in a family meeting yesterday, having brought in medications and confirming weapons are secured. Pt has a psychiatric intake appointment scheduled for this morning. She is seen early to assess readiness for discharge. Pt states that she is feeling "good" this morning, remaining agreeable with plan for discharge today. She admits she is "apprehensive" and anxious, but is able to contract for safety outside of the hospital setting. Pt denies SI. We reviewed recommendation she be sure to attend today's appointment, as the next soonest appointment was reportedly several months form now. Discharge plan was reviewed and patient remains agreeable with plan. She denies other needs or concerns today, and denied questions after reviewing her discharge orders. ROS: Constitutional: reports mildly disturbed sleep last evening Cardiovascular: denied Respiratory: denied Gastrointestinal: denied Neurological: denied Psychiatric: denies symptoms other than stated above Total of at least 10 systems reviewed, pertinent positives as above and in HPI. Transition of Care Transition Of Care Record: was reviewed with the patient Advance Directives Advance Directives Information Provided: Yes Advance Directives: Yes Mental Health Advance Directive: No Advance Directives on File: No Living Will: Yes Power of Web Press Operator Apprentice: No Advance Directives Reason:: Declines as Mental Health Visit. Risk Factors Assessment Presenting risk factors reviewed on discharge. Precipitating stressors mitigated by: admission for inpatient psychiatric observation and treatment, appropriate adjustments to medications to target symptoms, attendance of therap eutic treatment groups, development of healthy and effective coping strategies, involvement of outpatient supports, completion of a safety plan, confirmation of extra medications being secured, confirmation of guns and weapons being secured, discussion regarding substance abuse and effects on mental health diagnoses, treatment of medical conditions and education on diagnoses. Pt has demonstrated improvement in condition with regard to improvement in mood, confirmation of outpatient appointments, involvement of daughters in family meeting, and resolution of SI. At this time, patient is requesting discharge and is no longer considered to be at acute risk of harm to herself or others. Pt will be discharged with recommendation for ongoing outpatient psychiatric treatment. 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 (rifles and pistol)) Health Problems: Yes Mental Health Diagnoses: Yes Substance Use Disorders: Yes Previous Attempt: No Family History of Suicide: Yes Previous Psychiatric Hospitalization: Yes Hopelessness: Yes Smoker: Yes Protective Factors Assessment Zoroastrianism Beliefs: Yes : Yes Responsible for Young Children: No Employed: Yes Stable Relationships: Yes Supportive Family: Yes Tobacco Cessation at Discharge Tobacco Cessation Medication Prescribed at Discharge: Offered & Pt Refused Total Time Total Time Spent: Greater Than 30 Minutes Total Time Includes: Examination of the patient, Discharge Planning, Medication Reconciliation and Communication with other providers Discharge Data Lab Results 04/05/19 07:27 Sodium 131 L Potassium 4.1 Chloride 97 L Carbon Dioxide 28 Anion Gap 6.0 BUN 10 Creatinine 0.69 Est Cr Clr Drug Dosing Not Reportable Est GFR ( Amer) 109.7 Est GFR (Non-Af Amer) 94.6 BUN/Creatinine Ratio 14.6 Glucose 93 Calcium 9.4 Hospital Course (1) Depression: 04/04 -reviewed diagnosis and treatment recommendations, including adjustment to medications, therapy in groups on the unit, working on healthy coping skills, and behavioral interventions. -Continue recently increased citalopram 40 mg. -Continue trazodone 50 mg at bedtime, may repeat x1 if needed. -Safety plan: We will enlist family for plan to remove guns in the home, as patient's no longer uses them and she has had multiple episodes of depression with suicidal ideation. Recommend family meeting to include daughters and possibly if able to participate. -Care coordinated with outpatient therapist, Kirstin Acosta, at [facility]. Psychiatric intake scheduled at [facility] for 04/06, may need to reschedule if she is still here. -TSH 0.365 on admission, WNLs. 04/05 -patient reporting improved mood, tolerating citalopram well. -Family meeting with daughters; they agreed to remove guns from the home and secure medications prior to discharge. -Sleep improved on trazodone, but still waking up midway through the night. Increase dose to 100 mg at bedtime. (2) Anxiety: 04/04 -citalopram increased as above. Offer hydroxyzine as needed for anxiety. -Lorazepam will be tapered off due to abuse of the medication, risks including cognitive impairment, falls, delirium, and history of substance abuse (alcoholism). -Work on behavioral strategies for managing anxiety, relaxation techniques, and healthy coping skills. 04/05 -patient reporting improved anxiety, and is working on healthier ways to cope. (3) Benzodiazepine abuse: 04/05/2019: Patient reports abusing lorazepam, taking up to 4 times the daily prescribed dose for the past couple of weeks. It appears that she has been taking more than prescribed for the past month and a half, as she filled her last 90-day prescription 3 weeks early. She last filled #90 tabs 0.5 mg lorazepam on 02/23/2019, and ran out in less than a month and a half. She has been getting 0.5 mg twice daily here the past couple of days, does not have symptoms of withdrawal, so will reduce further to 0.5 mg daily. Contacted her PCP, Dr. Gonzalez, who is prescribing medication to review. -Patient's daughter state that her is also prescribed lorazepam, and they have agreed to lock and secure medications in the home for safety purposes. Again reviewed the risks of benzodiazepines with the patient, and recommendations to taper off this medication and avoid controlled substances given her addiction history. (4) Hyponatremia: 04/04 -sodium 124 on admission, 132 as of 04/03/2019. Encourage good nutrition, and recheck BMP tomorrow. 04/05 -sodium remains low at 131 today. Reviewing lab results from the past 16 months shows that sodium is chronically low. Will ensure follow-up with PCP as recommended by the hospitalist (5) Tobacco use disorder: 04/04 -smoking cessation education, offer patch and/or nicotine gum as needed for cravings here. (6) HTN (hypertension): 04/04 -continue lisinopril 20 mg twice daily, which was increased by her PCP last week, and again increased on the hospitalist service due to ongoing hypertension. BP today 142/92, continue to monitor and adjust as needed. Anxiety is likely contributing to hypertension and tachycardia. (7) Hyperlipidemia: Continue home dose of atorvastatin. Mental Health & Subst Abuse Tx Psychiatrist Name of Psychiatrist: [facility] Psychiatrist's Date of Appointment with Psychiatrist: 04/06/19 Time of Appointment with Psychiatrist: 10:00 a.m. Psychiatric Appointment Comment: [address] [place] [address] Psychiatrist Release of Information: Obtained, Reviewed and Signed Therapist Name of Therapist: [facility] - Kirstin Acosta Therapist's Date of Therapist Appointment: 04/10/19 Time of Therapist Appointment: 3:00 p.m. Therapy Appointment Comment: [address] [place] [address] Therapist Release of Information: Obtained, Reviewed and Signed Post Discharge Appointments Primary Care Physician Name Of Family Doctor: [facility] - Dr. Gonzalez Primary Care Date of Appointment with PCP: 04/18/19 Time of Appointment with PCP: 9:20 a.m. Provider Appointment Comment: [address] [facility] [address] Primary Care Release of Information: Obtained, Reviewed and Signed Smoking Cessation Counseling Tobacco Cessation Medication Prescribed at Discharge: Offered & Pt Refused Contact Information Discharge Discharge Address: [address] [place] [address] Discharge Plan Discharge Items Patient Disposition: Home - Self-Care Reason For Visit: DEPRESSION SINGLE EPISODE Discharge Diagnosis: Depression, Anxiety Condition on Discharge: Good Activity: Resume your previous activity Non-emergency contact: Primary Care Provider, Psychiatrist and Therapist Call non-emergency contact if: you have any medication questions and your symptoms worsen Follow-up/Referrals: Marianne Gonzalez DO [Primary Care Provider] - Diet: Regular Addtl Attending Provider Instructions: SPECIAL CARE INSTRUCTIONS: 1. Follow through with your scheduled aftercare appointments. If unable to keep an appointment, please call to reschedule. 2. Take your medication only as prescribed. Medication should not be changed or stopped without the approval of your doctor. In the event of worsening symptoms or concerns about side effects, contact your doctor immediately. 3. Utilize new healthy coping skills, anger management skills, and stress management skills learned during your hospitalization. Journal feelings and process them with a support person. Identify stressors or situations that may result in relapse, deterioration or inappropriate behaviors and develop a plan to deal with those issues. 4. If your coping skills are ineffective and you are in crisis, contact your outpatient providers for direction. If unable to reach your providers, please call the CAN HELP LINE AT or go to the closest Emergency Room. 5. Avoid alcohol and un-prescribed drugs. 6. You have been provided with the Mental Health Advance Directives Pamphlet for your review. AFTERCARE APPOINTMENTS: * Please call your insurance company prior to your scheduled appointment to confirm your aftercare providers are covered. Take your insurance information to your appointments. WHO TO CALL AND WHEN: Medical Emergencies: For questions or emergencies related to your hospital stay, please contact the Inpatient Behavioral Health Unit at [phone]. A health and safety technician is on-call 11/01 for the Behavioral Health Unit for emergencies At any time you feel your situation is an emergency, you may also call 911 immediately. Your Doctors Instructions noted above were prepared by provider Nanci Thorpe PA-C. Pending Studies at Discharge: No Stand-Alone Forms: My [facility] Medications and DC Order Prescriptions: New citalopram 40 mg Tablet 40 mg PO QAM 30 Days Qty: 30 RF: 0 hydroxyzine HCl 25 mg Tablet 25 mg PO Q4H PRN (Reason: anxiety/insomnia) 30 Days Qty: 60 RF: 0 trazodone 100 mg Tablet 100 mg PO HS 30 Days Qty: 30 RF: 0 benzonatate [Tessalon Perles] 100 mg Capsule 100 mg PO TID PRN (Reason: cough) 30 Days Qty: 30 RF: 0 lorazepam 0.5 mg Tablet 0.5 mg PO UD Qty: 1 RF: 0 Continued atorvastatin 20 mg tablet 20 mg PO HS Qty: 90 RF: 0 cholecalciferol (vitamin D3) 2,000 unit capsule 2,000 units PO DAILY Qty: 30 RF: 0 lisinopril 20 mg tablet 20 mg PO BID RF: 0 Discontinued lorazepam 0.5 mg tablet 0.5 mg PO .COMPLEX Qty: 10 RF: 0 trazodone 50 mg tablet 50 mg PO DAILY RF: 0 citalopram 40 mg Tablet 40 mg PO DAILY RF: 0 citalopram 40 mg Tablet 40 mg PO DAILY 30 Days Qty: 30 RF: 0 Discharge Orders: Discharge Order (Routine); Ordered 04/06/19 Ordered By: Nanci Thorpe Admission Data Admit Date/Time: 04/03/19 18:34 Attending Provider: Sanjana Singleton Admit Provider: Elbert Cohn Primary Care Provider: Marianne Gonzalez Other Interventions: Discharge Summary Assessment (RN) Last Done: 04/06/19 07:21 PSY Interdisciplinary Discharge Planning Last Done: 04/06/19 07:23 DC Date/Time DO NOT enter until pt leaves facility: 04/06/19 09:15 Coding Level of Care Code 95698 D/C day mgmt > 30 min Diagnoses Depression F33.2 Active/Remission status: currently active Depression Type: major depressive disorder Major depression episode severity: severe Major depression recurrence: recurrent Psychotic features: without psychotic features Anxiety F41.9 Benzodiazepine abuse F13.10 Hyponatremia E87.1 Tobacco use disorder F17.200 HTN (hypertension) I10 Hyperlipidemia E78.5
[2019-04-06] MEDS: LORazepam 0.5 MG TAB PO PRN (09:04)
== END 2019-04-06 09:15 | disposition home or self-care (01) | DRG 881 ==
LOC: 3S 18:34

== ENCOUNTER 2019-11-27 09:59 | Inpatient (IN) ==
[2019-11-27] MEDS ORDERED: LORazepam 1 MG TAB SL STA (10:32)
--- NOTE | 2019-11-27 10:35 | Emergency Department Note ---
Impression & Plan Suicidal ideation ED Provider Note NAME: GEOVANNI AVENDAÑO AGE: 59 SEX: F : 1960 ARRIVES VIA: Walk-In INFORMANT: [Patient][nurses] ED PROVIDER(S): [Rohit Prabhakar MD] CHIEF COMPLAINT: Suicidal ideation HISTORY OF PRESENT ILLNESS: The patient is a 59-year-old female who states that she was sent here by her psychiatrist for suicidal ideation. The patient states that she had been sober for 18 years but then yesterday, drank a half of a pint of moonshine in an attem pt to kill herself. She was hoping she would not wake up. Today, when she saw her psychiatrist, she was referred here. The patient admits to suicidal ideation. She admits to the above plan. The p atient states that she is not sure why she is more depressed but she definitely feels more depressed lately and also more anxious. She is always thinking about her past. Patient states that her did pass away in June, she states though that she is not sure that this is the big stressor for her. She was okay for a while after his but now lately, she just feels overwhelmed about e verything. The patient is on medication for depression and anxiety. She is taking these as prescribed. She denies cough, cold or congestion. No coronavirus exposures. The patient has not been short of breath, no fever. She presents for evaluation and is currently voluntary. REVIEW OF SYSTEMS: See HPI for pertinent positives and negatives. A total of ten systems were reviewed and were otherwise negative. PMHx/PSHx: See Below SOCIAL HISTORY: See Below. PHYSICAL EXAM: GENERAL: Patient is in no acute distress. HEENT: No acute trauma, normocephalic atraumatic, mucous membranes moist, no nasal congestion, no scleral icterus. NECK: No stridor, no adenopathy, no meningismus, trachea is midline. LUNGS: Clear to auscultation bilaterally, no wheeze, no rhonchi, breath sounds equal. HEART: Without murmurs gallops or rubs, regular rate and rhythm. ABDOMEN: Soft, nontender, bowel sounds positive, no hernias, no peritonitis. EXTREMITIES: No cyanosis or edema, full range of motion of all the joints without pain or difficulty, no signs for acute trauma. NEUROLOGIC: Oriented x 3, no acute motor or sensory deficits, no focal weakness. SKIN: No rash, no jaundice, no diaphoresis. Psychiatric: She is cooperative, she admits to suicidal ideation with a plan yesterday to overdose on alcohol and hopefully not wake up. DIFFERENTIAL DIAGNOSIS: Mood disorder, infection, hypoglycemia, electrolyte abnormalities, cardiac sources, intracerebral event, toxicologic, trauma, neurologic, as well as other pathologies. EMERGENCY DEPARTMENT COURSE/PROCEDURES: MEDICAL DECISION MAKING: No leukocytosis or concerning anemia. No significant electrolyte abnormality or kidney failure. No worrisome liver enzyme elevation. The patient appeared to be in a euthyroid state. Urinalysis did not show any evidence for infection. Contamination in the urine sample was seen. Aspirin and Tylenol levels were basically undetectable. Alcohol the was undetectable. Urine tox showed potential ecstasy. The patient presents anxious and suicidal. She attempted to kill herself by overdosing on alcohol. She was voluntary. The patient was felt medically clear. I did give her a dose of sublingual Ativan to help with anxiety during her ER stay. The patient was seen by psychiatry case management. The patient is being adm itted voluntary to our hospital's psychiatric service. The patient has been cooperative during her ED stay. Past Med/Surg History Medical History Abnormal skin morphology determined by biopsy (Resolved) Elevated alkaline phosphatase level Grief Loss of spouse in June 2019 History of colon polyps History of colon polyps Hyperlipidemia Hypertension Tobacco dependence Surgical History History of arthroscopy of right knee History of bilateral tubal ligation History of section x2 History of colonoscopy History of dilatation and curettage Family History Grandmother (Maternal) Family history of diabetes mellitus Father Alcohol abuse Cardiac disorder Diabetes Lung disease Myocardial infarction Mother Anxiety Hypertension Breast cancer Family/Other No problems noted. Denies family history of Colon cancer Prostate cancer Social History Preferred Language: Malay Communication Ability: Effective Visual Impairment: No Limitations Hearing Ability: Normal Salon Receptionist Required: No Beliefs That Will Affect Care: Voodoo marital status: Current Living Situation: Spouse current occupational status: employed Feels Safe at Home: Yes Smoking Status: Current every day smoker Tobacco Type: cigarettes ; Age Started Using Tobacco: 23 ; packs per day: 1 ; Second Hand Exposure: No ; Hx Alcohol Use: No Hx Substance Use: No Dental Care, Regularly: Yes Allergies Allergies Allergy/AdvReac Type Severity Reaction Status Date / Time No Known Allergies Allergy Verified 11/27/19 10:25 Home Meds Previous Rx's Medication Instructions Recorded citalopram 40 mg tablet 40 mg PO DAILY #30 tab 08/08/19 trazodone 100 mg tablet 100 mg PO HS #30 tab 08/08/19 lisinopril 20 mg tablet 20 mg PO DAILY #90 tab 09/15/19 atorvastatin 20 mg tablet 20 mg PO HS #90 tab 10/09/19 hydroxyzine HCl 25 mg tablet 25 mg PO Q4H PRN #60 tab 10/11/19 Results & Data (ED) Vital Signs Vital Signs - 24 hr 11/27/19 10:03 11/27/19 11:31 Temperature 36.3 C L Temperature Source Oral Pulse Rate 99 H Pulse Rate [Finger] 91 H Respiratory Rate 17 20 Respiratory Effort / Characteristics Non-Labored Spontaneous Non-Labored Spontaneous Respiratory Depth Normal Normal Blood Pressure 180/93 H Blood Pressure [Right Arm] 154/89 H Blood Pressure Mean 122 Blood Pressure Mean [Right Arm] 110 Blood Pressure Position Sitting Blood Pressure Position [Right Arm] Lying Pulse Oximetry 97 95 Oxygen Delivery Method Room Air Room Air Sepsis Recent Fever Within 48 Hours No Sepsis New/Unexplained Change in Mental Status No Sepsis Action Taken by Nursing No Action Required Home Medications Current Medication List: was personally reviewed by me Laboratory Data Attestation: I reviewed the patient's lab results. Result diagrams: 11/27/19 10:32 11/27/19 10:32 Lab Results 11/27/19 11/27/19 11/27/19 Range/Units 10:15 10:15 10:32 WBC 7.94 (4.8-10.8) K/uL RBC 5.00 (4.2-5.4) M/uL Hgb 14.2 (12.0-16.0) g/dL Hct 42.4 (37-47) % MCV 84.8 (80-100) fL MCH 28.4 (25-34) pg MCHC 33.5 (32-36) g/dL RDW Std Deviation 42.1 (36.4-46.3) fL RDW Coeff of Hever 13.6 (11.5-14.5) % Plt Count 300 (130-400) K/uL MPV 9.8 (7.4-10.4) fL Immature Gran % (Auto) 0.5 % Neut % (Auto) 78.7 % Lymph % (Auto) 13.7 % [place] % (Auto) 6.2 % Eos % (Auto) 0.4 % Baso % (Auto) 0.5 % Immature Gran # (Auto) 0.04 H (0.00-0.02) K/uL Neut # (Auto) 6.25 (1.4-6.5) K/uL Lymph # (Auto) 1.09 L (1.2-3.4) K/uL [place] # (Auto) 0.49 (0.11-0.59) K/uL Eos # (Auto) 0.03 (0-0.5) K/uL Baso # (Auto) 0.04 (0-0.2) K/uL Sodium (136-145) mmol/L Potassium (3.5-5.1) mmol/L Chloride (98-107) mmol/L Carbon Dioxide (21-32) mmol/L Anion Gap (3-11) BUN (7-18) mg/dl Creatinine (0.6-1.2) mg/dl Est Cr Clr Drug Dosing ml/min Est GFR ( Amer) Est GFR (Non-Af Amer) BUN/Creatinine Ratio (10-20) Glucose (70-99) mg/dl Calcium (8.5-10.1) mg/dl Total Bilirubin (0.2-1) mg/dl AST (15-37) U/L ALT (12-78) U/L Alkaline Phosphatase (45-117) U/L Total Protein (6.4-8.2) gm/dl Albumin (3.4-5.0) gm/dl Globulin (2.5-4.0) gm/dl Albumin/Globulin Ratio (0.9-2) TSH (0.300-4.500) uIu/ml Urine Color Yellow Urine Appearance Clear (Clear) Urine pH 5.5 (4.5-7.5) Ur Specific [place] 1.016 (1.000-1.030) Urine Protein Trace H (Negative) Urine Glucose (UA) Negative (Negative) Urine Ketones Trace H (Negative) Urine Blood Negative (Negative) Urine Nitrite Negative (Negative) Urine Bilirubin Negative (Negative) Urine Urobilinogen Negative (Negative) Ur Leukocyte Esterase Negative (Negative) Urine WBC (Auto) 1-5 (0-5) /hpf Urine RBC (Auto) 5-10 H (0-4) /hpf U Hyaline Cast (Auto) 1-5 (0-5) /lpf U Epithel Cells (Auto) >30 H (0-5) /lpf Urine Bacteria (Auto) Negative (Negative) Salicylates (2.8-20) mg/dl Urine Opiates Screen Neg (Neg) Ur Methadone, Qual Neg (Neg) Acetaminophen (10-30) ug/ml Urine Barbiturates Neg (Neg) Ur Phencyclidine (PCP) Neg (Neg) U Amphetamin/Meth Scrn Neg (Neg) MDMA (Ecstasy) Screen Pos H (Neg) U Benzodiazepines Scrn Neg (Neg) Ur Cocaine Metabolite Neg (Neg) U Marijuana (THC) Screen Neg (Neg) Ethyl Alcohol mg/dL (0-3) mg/dl 11/27/19 11/27/19 11/27/19 Range/Units 10:32 10:32 10:32 WBC (4.8-10.8) K/uL RBC (4.2-5.4) M/uL Hgb (12.0-16.0) g/dL Hct (37-47) % MCV (80-100) fL MCH (25-34) pg MCHC (32-36) g/dL RDW Std Deviation (36.4-46.3) fL RDW Coeff of Hever (11.5-14.5) % Plt Count (130-400) K/uL MPV (7.4-10.4) fL Immature Gran % (Auto) % Neut % (Auto) % Lymph % (Auto) % [place] % (Auto) % Eos % (Auto) % Baso % (Auto) % Immature Gran # (Auto) (0.00-0.02) K/uL Neut # (Auto) (1.4-6.5) K/uL Lymph # (Auto) (1.2-3.4) K/uL [place] # (Auto) (0.11-0.59) K/uL Eos # (Auto) (0-0.5) K/uL Baso # (Auto) (0-0.2) K/uL Sodium 132 L (136-145) mmol/L Potassium 3.9 (3.5-5.1) mmol/L Chloride 100 (98-107) mmol/L Carbon Dioxide 26 (21-32) mmol/L Anion Gap 6.0 (3-11) BUN 10 (7-18) mg/dl Creatinine 0.70 (0.6-1.2) mg/dl Est Cr Clr Drug Dosing 69.8 ml/min Est GFR ( Amer) 108.4 Est GFR (Non-Af Amer) 93.5 BUN/Creatinine Ratio 13.7 (10-20) Glucose 106 H (70-99) mg/dl Calcium 8.7 (8.5-10.1) mg/dl Total Bilirubin 0.5 (0.2-1) mg/dl AST 24 (15-37) U/L ALT 34 (12-78) U/L Alkaline Phosphatase 159 H (45-117) U/L Total Protein 7.2 (6.4-8.2) gm/dl Albumin 3.6 (3.4-5.0) gm/dl Globulin 3.6 (2.5-4.0) gm/dl Albumin/Globulin Ratio 1.0 (0.9-2) TSH 0.627 (0.300-4.500) uIu/ml Urine Color Urine Appearance (Clear) Urine pH (4.5-7.5) Ur Specific [place] (1.000-1.030) Urine Protein (Negative) Urine Glucose (UA) (Negative) Urine Ketones (Negative) Urine Blood (Negative) Urine Nitrite (Negative) Urine Bilirubin (Negative) Urine Urobilinogen (Negative) Ur Leukocyte Esterase (Negative) Urine WBC (Auto) (0-5) /hpf Urine RBC (Auto) (0-4) /hpf U Hyaline Cast (Auto) (0-5) /lpf U Epithel Cells (Auto) (0-5) /lpf Urine Bacteria (Auto) (Negative) Salicylates 2.4 L (2.8-20) mg/dl Urine Opiates Screen (Neg) Ur Methadone, Qual (Neg) Acetaminophen < 2 L (10-30) ug/ml Urine Barbiturates (Neg) Ur Phencyclidine (PCP) (Neg) U Amphetamin/Meth Scrn (Neg) MDMA (Ecstasy) Screen (Neg) U Benzodiazepines Scrn (Neg) Ur Cocaine Metabolite (Neg) U Marijuana (THC) Screen (Neg) Ethyl Alcohol mg/dL < 3.0 (0-3) mg/dl Administered Medications Hydroxyzine HCl (Vistaril) 25 mg PO Q4H PRN PRN Reason: Anxiety Stop: 12/27/19 12:19 Last Admin: 11/27/19 17:30 Dose: 25 mg Documented by: [id number] Discontinued Medications Lorazepam (Ativan) 1 mg SL NOW STA Stop: 11/27/19 10:33 Last Admin: 11/27/19 10:37 Dose: 1 mg Documented by: [id number] Nicotine (Nicoderm Cq) 14 mg TD QAM GERRI Stop: 12/27/19 13:59 Last Admin: 11/27/19 17:53 Dose: 14 mg Documented by: [id number] Blood Pressure Blood Pressure Findings: Elevated blood pressure Blood Pressure Disposition: Referred to patients primary care provider Discharge Plan Visit Data *Final* Discharge Date/Time: 11/27/19 12:57 Chief Complaint: Mental Health Evaluation Stated Complaint: REF BY PHY, MENTAL HEALTH ED Provider: Rohit Prabhakar Discharge Problem: Suicidal ideation Patient Disposition: Admitted As Inpatient Condition: Good Discharge Instructions Interventions: ED Discharge Assessment Last Done: 11/27/19 12:57
[2019-11-27 10:41] LABS: Appearance Urine Clear (Clear); Bacteria Urine Automated Negative (Negative); Bilirubin Urine Negative (Negative); Blood Urine Negative (Negative); Color Urine Yellow; Epithelial Cell Urine Auto >30 /lpf (0-5); Glucose Urine UA Negative (Negative); Ketones Urine Trace (Negative); Leukocyte Esterase Urine Negative (Negative); Nitrite Urine Negative (Negative); Protein Urine Trace (Negative); Specific Gravity Urine 1.016 (1.000-1.030); Urobilinogen Urine Negative (Negative); pH Urine 5.5 (4.5-7.5)
[2019-11-27 10:59] LABS: Basophils # (auto) 0.04 K/uL (0-0.2); Basophils % (auto) 0.5 %; Eosinophils # (auto) 0.03 K/uL (0-0.5); Eosinophils % (auto) 0.4 %; Hematocrit (blood only) 42.4 % (37-47); Hemoglobin 14.2 g/dL (12.0-16.0); Immature Granulocytes # (auto) 0.04 K/uL (0.00-0.02); Immature Granulocytes % (auto) 0.5 %; Lymphocytes # (auto) 1.09 K/uL (1.2-3.4); Lymphocytes % (auto) 13.7 %; Mean Corpuscular Hemoglobin 28.4 pg (25-34); Mean Corpuscular Hgb Conc 33.5 g/dL (32-36); Mean Corpuscular Volume 84.8 fL (80-100); Mean Platelet Volume 9.8 fL (7.4-10.4); Monocytes # (auto) 0.49 K/uL (0.11-0.59); Monocytes % (auto) 6.2 %; Neutrophils # (auto) 6.25 K/uL (1.4-6.5); Neutrophils % (auto) 78.7 %; Platelet Count 300 K/uL (130-400); RDW Coefficient of Variation 13.6 % (11.5-14.5); RDW Standard Deviation 42.1 fL (36.4-46.3); White Blood Count 7.94 K/uL (4.8-10.8)
[2019-11-27 11:08] LABS: Acetaminophen < 2 ug/ml (10-30); Albumin Level 3.6 gm/dl (3.4-5.0); BUN Creatinine Ratio 13.7 (10-20); Calcium 8.7 mg/dl (8.5-10.1); Creatinine Clr Calc Pharmacy 69.8 ml/min; Est GFR (African American) 108.4; Est GFR (Non-African American) 93.5; Potassium 3.9 mmol/L (3.5-5.1); Salicylate 2.4 mg/dl (2.8-20)
[2019-11-27 11:19] LABS: Bilirubin,Total 0.5 mg/dl (0.2-1); Globulin 3.6 gm/dl (2.5-4.0); Thyroid Stimulating Hormone 0.627 uIu/ml (0.300-4.500); Total Protein 7.2 gm/dl (6.4-8.2)
[2019-11-27 11:23] LABS: Amphetamines+Metham, Urine Neg (Neg); Barbiturates, Urine Neg (Neg); Benzodiazepine, Urine Neg (Neg); Cocaine, Urine Neg (Neg); MDMA (Ecstacy), Urine Pos (Neg); Methadone, Urine Neg (Neg); Opiate, Urine Neg (Neg); Phencyclidine, Urine Neg (Neg)
[2019-11-27] MEDS ORDERED: MAGNESIUM HYDROXIDE SUSP 30 ML UDC PO PRN (12:20)
[2019-11-27] MEDS ORDERED: SODIUM CHLORIDE 0.65% NA SOLN 45 ML (OCEAN) PRN (12:20)
[2019-11-27] MEDS ORDERED: ACETAMINOPHEN 325 MG TAB PO PRN (12:20)
[2019-11-27] MEDS ORDERED: BISMUTH SUBSALICYLATE PER ML OMNICELL CHARGE PO PRN (12:20)
[2019-11-27] MEDS ORDERED: ALUMINUM/MAGNESIUM SUSP 30 ML UDC PO PRN (12:20)
[2019-11-27] MEDS ORDERED: NICOTINE 21 MG/24 HR TDSY TD SCH (14:00)
[2019-11-27] MEDS ORDERED: LORazepam 1 MG TAB PO PRN (15:06)
--- NOTE | 2019-11-27 15:11 | History & Physical ---
Date of Service November 27, 2019 Impression / Recommendations Impression 59 yo female with a remote history of alcoholism (sober >16 years), presents with recurrent depression and worsening anxiety following the of her and other COVID-related stressors. She seems to be seeking Ativan and it's not 100% certain that her recent ETOH use hx is accurate and her current MSE could be suggestive of mild early withdrawal. (1) Major depression, recurrent: The patient was admitted to the [facility] ([facility]) on q15 min checks (behavioral with suicide precautions) for safety. The patient will participate in group, recreational, and milieu therapies and will be offered additional individual and family sessions as clinically appropriate. She feels her anxiety is primary. Discussed possible titration of Celexa but will defer to tomorrow, discussed FDA warnings re: QTc changes at higher doses and given combo with hydroxyzine feel in best interest to check EKG. Active/Remission status: currently active Major depression episode severity: severe Psychotic features: without psychotic features Qualified Code(s): F33.2 - Major depressive disorder, recurrent severe without psychotic features (2) Alcohol abuse: binge drank last night, suspect other use, hx of benzo misuse as well--will implement AWSS protocol with Ativan prn with parameters for withdrawal. Will not load with Neurontin at this time but monitor. Reviewed with patient that Ativan will not be given for anxiety and rationale given controlled substance. (3) Generalized anxiety disorder: consider adjustment to antidepressant as above. Avoid benzodiazepines except for withdrawal. For mulugeta discussed use of neurontin 300 mg. Discussion included but was not limited to risks in combination with sedating substances a nd ETOH. PDMP does not show any benzo scripts from outside providers since March. 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 Chief Complaint "I just had so much anxiety, I needed to drink to get rid of the thoughts.". History of Present Illness States that still grieving her who in June after 5 years of extended illness. She "tries to stay busy but only so much I can do at home." She states that her anxiety has been constant, has difficulty describing specific thoughts "they just race". Denies associated manic symptoms. States that after awhile it triggers depression, states was so low that couldn't eat much the past few days. States that it's been harder to fall asleep but also states that her Celexa and trazodone are "working fine". She states that on falling asleep she would "see soldiers", like a dream state when thoughts are racing. She appears to have some sedation perhaps even confusion following Ativan in ED. States "Ativan takes everything away" and then repeatedly asked for Ativan. Reviewed concerns about ongoing use of controlled substances with ETOH hx. She continues to insist that ETOH use last pm was "a one time thing" rather than recent ongoing use but BP also elevated (thought to be anxiety rather than withdrawal). She admits to drinking 1 pint of moonshine in the hopes of never waking up again. She did not seek care at that time but instead went to Dr. Cordero appointment and ultimately referred to ED. 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 Past Psychiatric History Current Psychiatric Diagnosis: MDD, Anxiety Outpatient Services: Dr. Cordero for meds, Kirstin Pritchett for therapy Previous Psych Admissions: post depression in her 20s (male infant , MILADIS) and again with daughter (Lesa); [facility] 04/08 Do You Have Access To A Gun?: No History of Previous Suicide Attempt: No Past Medication Trials: maybe a TCA Allergies Allergy/AdvReac Type Severity Reaction Status Date / Time No Known Allergies Allergy Verified 11/27/19 10:25 Home Medications Home Medications Medication Instructions Recorded Confirmed Type citalopram 40 mg tablet 40 mg PO DAILY #30 tab 08/08/19 11/27/19 Rx trazodone 100 mg tablet 100 mg PO HS #30 tab 08/08/19 11/27/19 Rx lisinopril 20 mg tablet 20 mg PO DAILY #90 tab 09/15/19 11/27/19 Rx atorvastatin 20 mg tablet 20 mg PO HS #90 tab 10/09/19 11/27/19 Rx hydroxyzine HCl 25 mg tablet 25 mg PO Q4H PRN #60 tab 10/11/19 11/27/19 Rx Family History Family History of: Doesn't Know Alcohol History Hx of Alcohol Use Over the Past 12 Months: Yes (drank yesterday after 18 yrs sobriety) AUDIT Total Score: 0 Smoking Use Have You Smoked or Used Tobacco Products in the Last 30 Days: Yes tobacco type: cigarettes Smoking Status: Current every day smoker Smoking packs per day: 1 Substance History Hx of Prescription Med Misuse Over the Past 12 Months: No Hx of Over the Counter Med Misuse Over the Past 12 Months: No Hx of Inhalent Misuse Over the Past 12 Months: No Hx of Organic Substance Use Over the Past 12 Months: No Hx of Illegal Substances/Street Drug Use Over Past 12 Months: No Problems as a Result of Past Substance Use: None Identified Personal History Living Arrangements: Home Born In: [place], [place] Highest Grade Completed: High School Graduate 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 Number Of Children: daughter Beliefs That Will Affect Care: Faith Current Legal Problems: No Hx Traumatic Life Events: Yes Psychological Trauma History Comment: loss of infant, loss of Patient History Medical History Abnormal skin morphology determined by biopsy (Resolved) Elevated alkaline phosphatase level Grief Loss of spouse in June 2019 History of colon polyps History of colon polyps Hyperlipidemia Hypertension Tobacco dependence Surgical History History of arthroscopy of right knee History of bilateral tubal ligation History of section x2 History of colonoscopy History of dilatation and curettage Family History Grandmother (Maternal) Family history of diabetes mellitus Father Alcohol abuse Cardiac disorder Diabetes Lung disease Myocardial infarction Mother Anxiety Hypertension Breast cancer Family/Other No problems noted. Denies family history of Colon cancer Prostate cancer Social History Preferred Language: Malawian Communication Ability: Effective Visual Impairment: No Limitations Hearing Ability: Normal Volunteer Firefighter Required: No Beliefs That Will Affect Care: Faith marital status: Current Living Situation: Spouse current occupational status: employed Feels Safe at Home: Yes Smoking Status: Current every day smoker Tobacco Type: cigarettes ; Age Started Using Tobacco: 23 ; packs per day: 1 ; Second Hand Exposure: No ; Hx Alcohol Use: No Hx Substance Use: No Dental Care, Regularly: Yes Review of Systems Review of Systems: All systems reviewed & are unremarkable except as noted in HPI & below Physical Exam Psychiatric: Orientation: alert Apperance: + disheveled Eye Contact: + fair eye contact Motor Behavior: + tremor Speech: normal rate/rhythm/volume of speech Affect: + depressed affect Mood: + depressed mood Thought Process: + circumstantial thought process Thought Content: reality based without delusions ongoing SI, "i don't want to drink again but" Homicidal Thoughts: denies homicidal thoughts Hallucinations: no auditory hallucinations and no visual hallucinations Cognition: language grossly intact; + attention not intact Estimated Intelligence: consistent with education level Insight: + limited insight Judgement: + limited judgement Vital Signs (Past 24 Hours): Last Vital Signs Temp 36.3 C L 11/27/19 13:26 Pulse 90 11/27/19 13:26 Resp 16 11/27/19 13:26 BP 136/71 11/27/19 13:26 Pulse Ox 96 11/27/19 12:57 Exam Statement: A physical exam was performed in the ED by Dr. Prabhakar for the purposes of medical clearance. I accept that physical as correct and adequate for the purposes of the inpatient physical exam. Results & Data ([facility]) Laboratory Results Laboratory Results - last 24 hr 11/27/19 11/27/19 11/27/19 10:15 10:15 10:15 WBC RBC Hgb Hct MCV MCH MCHC RDW Std Deviation RDW Coeff of Hever Plt Count MPV Immature Gran % (Auto) Neut % (Auto) Lymph % (Auto) [place] % (Auto) Eos % (Auto) Baso % (Auto) Immature Gran # (Auto) Neut # (Auto) Lymph # (Auto) [place] # (Auto) Eos # (Auto) Baso # (Auto) Sodium Potassium Chloride Carbon Dioxide Anion Gap BUN Creatinine Est Cr Clr Drug Dosing Est GFR ( Amer) Est GFR (Non-Af Amer) BUN/Creatinine Ratio Glucose Calcium Total Bilirubin AST ALT Alkaline Phosphatase Total Protein Albumin Globulin Albumin/Globulin Ratio TSH Urine Color Yellow Urine Appearance Clear Urine pH 5.5 Ur Specific [place] 1.016 Urine Protein Trace H Urine Glucose (UA) Negative Urine Ketones Trace H Urine Blood Negative Urine Nitrite Negative Urine Bilirubin Negative Urine Urobilinogen Negative Ur Leukocyte Esterase Negative Urine WBC (Auto) 1-5 Urine RBC (Auto) 5-10 H U Hyaline Cast (Auto) 1-5 U Epithel Cells (Auto) >30 H Urine Bacteria (Auto) Negative Salicylates Urine Opiates Screen Neg Ur Methadone, Qual Neg Acetaminophen Urine Barbiturates Neg Ur Phencyclidine (PCP) Neg U Amphetamin/Meth Scrn Neg Urine MDEA Pending MDMA (Ecstasy) Screen Pos H MDMA Pending Urine MDMA Pending U Benzodiazepines Scrn Neg Ur Cocaine Metabolite Neg U Marijuana (THC) Screen Neg Ethyl Alcohol mg/dL 11/27/19 11/27/19 11/27/19 10:32 10:32 10:32 WBC 7.94 RBC 5.00 Hgb 14.2 Hct 42.4 MCV 84.8 MCH 28.4 MCHC 33.5 RDW Std Deviation 42.1 RDW Coeff of Hever 13.6 Plt Count 300 MPV 9.8 Immature Gran % (Auto) 0.5 Neut % (Auto) 78.7 Lymph % (Auto) 13.7 [place] % (Auto) 6.2 Eos % (Auto) 0.4 Baso % (Auto) 0.5 Immature Gran # (Auto) 0.04 H Neut # (Auto) 6.25 Lymph # (Auto) 1.09 L [place] # (Auto) 0.49 Eos # (Auto) 0.03 Baso # (Auto) 0.04 Sodium 132 L Potassium 3.9 Chloride 100 Carbon Dioxide 26 Anion Gap 6.0 BUN 10 Creatinine 0.70 Est Cr Clr Drug Dosing 69.8 Est GFR ( Amer) 108.4 Est GFR (Non-Af Amer) 93.5 BUN/Creatinine Ratio 13.7 Glucose 106 H Calcium 8.7 Total Bilirubin 0.5 AST 24 ALT 34 Alkaline Phosphatase 159 H Total Protein 7.2 Albumin 3.6 Globulin 3.6 Albumin/Globulin Ratio 1.0 TSH 0.627 Urine Color Urine Appearance Urine pH Ur Specific [place] Urine Protein Urine Glucose (UA) Urine Ketones Urine Blood Urine Nitrite Urine Bilirubin Urine Urobilinogen Ur Leukocyte Esterase Urine WBC (Auto) Urine RBC (Auto) U Hyaline Cast (Auto) U Epithel Cells (Auto) Urine Bacteria (Auto) Salicylates 2.4 L Urine Opiates Screen Ur Methadone, Qual Acetaminophen < 2 L Urine Barbiturates Ur Phencyclidine (PCP) U Amphetamin/Meth Scrn Urine MDEA MDMA (Ecstasy) Screen MDMA Urine MDMA U Benzodiazepines Scrn Ur Cocaine Metabolite U Marijuana (THC) Screen Ethyl Alcohol mg/dL 11/27/19 10:32 WBC RBC Hgb Hct MCV MCH MCHC RDW Std Deviation RDW Coeff of Hever Plt Count MPV Immature Gran % (Auto) Neut % (Auto) Lymph % (Auto) [place] % (Auto) Eos % (Auto) Baso % (Auto) Immature Gran # (Auto) Neut # (Auto) Lymph # (Auto) [place] # (Auto) Eos # (Auto) Baso # (Auto) Sodium Potassium Chloride Carbon Dioxide Anion Gap BUN Creatinine Est Cr Clr Drug Dosing Est GFR ( Amer) Est GFR (Non-Af Amer) BUN/Creatinine Ratio Glucose Calcium Total Bilirubin AST ALT Alkaline Phosphatase Total Protein Albumin Globulin Albumin/Globulin Ratio TSH Urine Color Urine Appearance Urine pH Ur Specific [place] Urine Protein Urine Glucose (UA) Urine Ketones Urine Blood Urine Nitrite Urine Bilirubin Urine Urobilinogen Ur Leukocyte Esterase Urine WBC (Auto) Urine RBC (Auto) U Hyaline Cast (Auto) U Epithel Cells (Auto) Urine Bacteria (Auto) Salicylates Urine Opiates Screen Ur Methadone, Qual Acetaminophen Urine Barbiturates Ur Phencyclidine (PCP) U Amphetamin/Meth Scrn Urine MDEA MDMA (Ecstasy) Screen MDMA Urine MDMA U Benzodiazepines Scrn Ur Cocaine Metabolite U Marijuana (THC) Screen Ethyl Alcohol mg/dL < 3.0 Current Inpatient Medications Current Inpatient Medications: Current Inpatient Medications Acetaminophen (Tylenol) 650 mg PO Q4H PRN PRN Reason: Headache or Minor Fever Stop: 12/27/19 12:19 Al Hydrox/Mg Hydrox/Simethicone (Maalox) 30 ml PO Q4H PRN PRN Reason: GI Upset Stop: 12/27/19 12:19 Atorvastatin Calcium (Lipitor) 20 mg PO HS GERRI Stop: 12/27/19 20:59 Bismuth Subsalicylate (Kaopectate) 15 ml PO PRN PRN PRN Reason: Loose Stool Stop: 12/27/19 12:19 Citalopram Hydrobromide (Celexa) 40 mg PO DAILY GERRI Stop: 12/28/19 08:59 Gabapentin (Neurontin) 300 mg PO HS GERRI Stop: 12/27/19 21:59 Hydroxyzine HCl (Vistaril) 50 mg PO HSZ PRN PRN Reason: Insomnia Stop: 12/27/19 12:19 Hydroxyzine HCl (Vistaril) 25 mg PO Q4H PRN PRN Reason: Anxiety Stop: 12/27/19 12:19 Lisinopril (Zestril) 20 mg PO DAILY GERRI Stop: 12/28/19 08:59 Lorazepam (Ativan) 1 mg PO ONE PRN; Protocol PRN Reason: EtoH Withdrawal AWSS 6-10 Magnesium Hydroxide (Milk Of Magnesia) 30 ml PO DAILY PRN PRN Reason: Constipation Stop: 12/27/19 12:19 Miscellaneous (Remove Nicoderm Patch) 1 ea N/A DAILY@0859 [facility] Stop: 12/28/19 08:58 Nicotine (Nicoderm Cq) 14 mg TD QAM [facility] Stop: 12/27/19 13:59 Sodium Chloride ([place] Nasal) 1 - 2 sprays NA PRN PRN PRN Reason: Nasal Dryness/Congestion Stop: 12/27/19 12:19 Trazodone HCl (Desyrel) 100 mg PO HS GERRI Stop: 12/27/19 20:59
[2019-11-27] MEDS: ATORVASTATIN 20 MG TAB PO SCH ×2 (22:10→22:26)
[2019-11-27] MEDS: TRAZODONE HCL 100 MG TAB PO SCH ×2 (22:10→22:26)
[2019-11-27] MEDS: GABAPENTIN 300 MG CAP PO SCH (22:11)
--- NOTE | 2019-11-28 06:13 | Electrocardiogram Report ---
Test Reason : Blood Pressure : / mmHG Vent. Rate : 078 BPM Atrial Rate : 078 BPM P-R Int : 110 ms QRS Dur : 090 ms QT Int : 374 ms P-R-T Axes : 064 063 048 degrees QTc Int : 426 ms Sinus rhythm No previous ECGs available Confirmed by Mark Larios [id number]) on 11/28/2019 6:13:35 AM Referred By: REFERRED SELF Confirmed By:Mark Larios
[2019-11-28] MEDS: lisinopriL 20 MG TAB PO SCH (07:47)
[2019-11-28] MEDS: NICOTINE 14 MG/24 HR PATCH TD SCH (07:47)
[2019-11-28] MEDS ORDERED: NICOTINE 21 MG/24 HR TDSY TD SCH (09:00)
[2019-11-28] MEDS ORDERED: CITALOPRAM 40 MG TAB PO SCH (09:00)
--- NOTE | 2019-11-28 14:47 | Psychiatric Progress Note ---
Date of Service November 28, 2019 Impression / Recommendations Impression 59 yo female with a remote history of alcoholism (sober >16 years), presents with recurrent depression and worsening anxiety following the of her and other COVID-related stressors. She seems to be seeking Ativan and it's not 100% certain that her recent ETOH use hx is accurate and her current MSE could be suggestive of mild early withdrawal. (1) Major depression, recurrent: The patient was admitted to the [facility] ([facility] mental health unit) on q15 min checks (behavioral with suicide precautions) for safety. The patient will participate in group, recreational, and milieu therapies and will be offered additional individual and family sessions as clinically appropriate. She feels her anxiety is primary. Discussed possible titration of Celexa but will defer to tomorrow, discussed FDA warnings re: QTc changes at higher doses and given combo with hydroxyzine feel in best interest to check EKG. 11/27 -Patient has been on Celexa 40 mg since March 2019 for increased depression and she has been having anticipatory anxiety associated with remission of MDD with recent stressors, including her 's in June of this year and self quarantine during COVID-19 outbreak. -Patient agrees to switch her SSRI to sertraline since citalopram does not control her anxiety and depressive symptoms that well. Cross titration will start from tomorrow morning and she will be on sertraline 50 mg with citalopram 20 mg for the next 2 to 3 days. If patient tolerates cross titration pretty well then further titration of sertraline will be considered up to 100 to 150 mg before discharge. Patient was informed of our treatment plan today. (2) Alcohol abuse: binge drank last night, suspect other use, hx of benzo misuse as well--will implement AWSS protocol with Ativan prn with parameters for withdrawal. Will not load with Neurontin at this time but monitor. Reviewed with patient that Ativan will not be given for anxiety and rationale given controlled substance. 11/27 -Patient's AWSS elevated to 6 this afternoon with significantly high blood pressure and even though patient states that she had only 1 day alcohol consumption after 16 years of sobriety, she might need some intervention for her alcohol consumption. -Brief intervention was offered and accepted Intervention was greater than 5 min in length. Brief interventions include: 1. Assess Readiness to Quit, 2. Advise: Help Patient to Reduce or Abstain from Alcohol, 3. Agree: Set Specific, Feasible Goals, 4. Assist: Anticipate barriers, Problem-Solving Solutions. Social work to 5. Arrange: Referrals to appropriate treatment. (3) Generalized anxiety disorder: consider adjustment to antidepressant as above. Avoid benzodiazepines except for withdrawal. For mulugeta discussed use of neurontin 300 mg. Discussion included but was not limited to risks in combination with sedating substances and ETOH. PDMP does not show any benzo scripts from outside providers since March. 11/27 -Patient is still wants to take Ativan because nothing helps her anxiety except Ativan. Risks/benefits/alternatives reviewed re: benzodiazepine use. Discussion included but was not limited to risks of dependence and possible respiratory depression if combined with agents like alcohol or opiates. Patient understands that this provider's concern over use of benzodiazepine and she will try to use hydroxyzine when her anxiety gets bad, even though it does not work that well for her anxiety. Risk Factors Assessment Do You Have Access To A Gun?: No Protective Factors Assessment Employed: Yes (Works at a [employer]/not working since [facility] [place]) Interval History Chief Complaint " My anxiety got worse because of concern that my depressive symptoms would start again". Review of Systems Notes Constitutional: denied cardiovascular: denied Respiratory: denied GI: denied Neurologic: denied Psychiatric: denies symptoms other than stated above Remainder of 10 body systems also reviewed and denied other than noted above. Sleep Information Total Hours of Sleep: 7 Sleep Comments: pt on q-15 minute checks Meal Information Percent Meal Consumed - Breakfast: 75 Percent Meal Consumed - Lunch: 100 Percent Meal Consumed - Dinner: 75 Subjective Subjective Patient was seen & assessed and interval progress reviewed with nursing and social work. Medical staff reports that she was pleasant upon her interactions with other people and attended/participated in the unit programmings. She rated her mood 7/10 and "okay" in the community meeting this morning. Patient was seen today to assess progress since admission. Patient reports that her anxiety has been increasing since self quarantine due to COVID-19 outbreak. She does not feel depressed too much since the recent hospitalization at [address] [place] [address] in March last year but she feels anticipatory anxiety because of the concern that she might have relapse in her major depression again. She reports that her in June of this year and she processed that well without significant problems while she was working. However she has been feeling more lonely and anxious when she is alone at home during self-quarantine for the past couple months. She tried to talk to friends or family members but states that there is nothing much to do at home. She reports that she cannot shut off her mind and she's been reminiscing her future and her past, stating "I am not living in the present at this moment ". She states that she had suicidal ideation for the past couple weeks even though it was passive ideation and did not feel safe at home. The night before the admission, she drank her 's moonshine after 16 years of sobriety because of her anxiety and suicidal ideation and she was sent to ER by Dr. Cordero, her psychiatrist, at [facility], when she expressed her SI to Dr. Cordero during the appointment. Patient still has some suicidal ideation but it is not that strong and she feels safe in the hospital. She admits that there are guns, which are not locked or secured, at home but she states that she does not know how to use the guns. She states her goal during the hospitalization is "straightening out my thoughts ". She states that Ativan is the only one medication, which can help her anxiety, but she also verbalizes her understanding, when she was informed of risks of terminal make up operator use of benzodiazepine. She is willing to change her medication to calm her anxiety down and informed that cross titration with the sertraline will start from tomorrow. Physical Exam Psychiatric Orientation: alert and oriented x 3 Apperance: appropriately dressed and + disheveled Eye Contact: + fair eye contact Motor Behavior: steady gait and station and no abnormal motor movements Speech: normal rate/rhythm/volume of speech Affect: + depressed affect and + anxious affect (guarded at first) Mood: + depressed mood and + anxious mood Thought Process: clear/coherent thought process Thought Content: reality based without delusions Suicidal Thoughts: denies suicidal plan and denies suicidal intent Homicidal Thoughts: denies homicidal thoughts Hallucinations: no auditory hallucinations and no visual hallucinations Cognition: recent memory grossly intact, attention grossly intact and language grossly intact Estimated Intelligence: consistent with education level Insight: + fair insight Judgement: + fair judgement Vital Signs (Past 24 Hours) Last Vital Signs Temp 36.3 C L 11/28/19 14:35 Pulse 101 H 11/28/19 14:35 Resp 16 11/28/19 10:39 BP 186/99 H 11/28/19 14:35 Pulse Ox 96 11/27/19 12:57 Results & Data ([facility]) Current Inpatient Medications Current Inpatient Medications: Current Inpatient Medications Acetaminophen (Tylenol) 650 mg PO Q4H PRN PRN Reason: Headache or Minor Fever Stop: 12/27/19 12:19 Al Hydrox/Mg Hydrox/Simethicone (Maalox) 30 ml PO Q4H PRN PRN Reason: GI Upset Stop: 12/27/19 12:19 Atorvastatin Calcium (Lipitor) 20 mg PO HS [facility] Stop: 12/27/19 20:59 Last Admin: 11/27/19 22:26 Dose: Not Given Documented by: Bismuth Subsalicylate (Kaopectate) 15 ml PO PRN PRN PRN Reason: Loose Stool Stop: 12/27/19 12:19 Citalopram Hydrobromide (Celexa) 40 mg PO DAILY [facility] Stop: 12/28/19 08:59 Last Admin: 11/28/19 07:47 Dose: 40 mg Documented by: Gabapentin (Neurontin) 300 mg PO HS [facility] Stop: 12/27/19 21:59 Last Admin: 11/27/19 22:11 Dose: 300 mg Documented by: Hydroxyzine HCl (Vistaril) 50 mg PO HSZ PRN PRN Reason: Insomnia Stop: 12/27/19 12:19 Hydroxyzine HCl (Vistaril) 25 mg PO Q4H PRN PRN Reason: Anxiety Stop: 12/27/19 12:19 Last Admin: 11/28/19 10:47 Dose: 25 mg Documented by: Lisinopril (Zestril) 20 mg PO DAILY [facility] Stop: 12/28/19 08:59 Last Admin: 11/28/19 07:47 Dose: 20 mg Documented by: Magnesium Hydroxide (Milk Of Magnesia) 30 ml PO DAILY PRN PRN Reason: Constipation Stop: 12/27/19 12:19 Miscellaneous (Remove Nicoderm Patch) 1 ea N/A DAILY@0859 [facility] Stop: 12/28/19 08:58 Last Admin: 11/28/19 07:51 Dose: Not Given Documented by: Nicotine (Nicoderm Cq) 14 mg TD DAILY [facility] Stop: 12/28/19 08:59 Last Admin: 11/28/19 07:47 Dose: 14 mg Documented by: Sodium Chloride ([place] Nasal) 1 - 2 sprays NA PRN PRN PRN Reason: Nasal Dryness/Congestion Stop: 12/27/19 12:19 Trazodone HCl (Desyrel) 100 mg PO HS [facility] Stop: 12/27/19 20:59 Last Admin: 11/27/19 22:26 Dose: Not Given Documented by: Mental Health & Subst Abuse Tx Psychiatrist Name of Psychiatrist: Elizabeth Cordero Psychiatrist's Psychiatric Appointment Comment: [address] [place] [address], [place] [address] Therapist Name of Therapist: [employer] Therapist's Therapy Appointment Comment: [address] [facility] Hospital Staff Pharmacist Name of Hospital Staff Pharmacist: None Post Discharge Appointments Primary Care Physician Name Of Family Doctor: SEAMUS Gonzalez Primary Care Provider Appointment Comment: [address], [address], [place] [address] Contact Information Discharge Discharge Address: [address] [place] [address] (1) Major depression, recurrent Active/Remission status: currently active Major depression episode severity: severe Psychotic features: without psychotic features Qualified Code(s): F33.2 - Major depressive disorder, recurrent severe without psychotic features
[2019-11-28] MEDS ORDERED: LORazepam 1 MG TAB PO PRN (14:52)
[2019-11-28] MEDS: ATORVASTATIN 20 MG TAB PO SCH (21:04)
[2019-11-28] MEDS: GABAPENTIN 300 MG CAP PO SCH (21:04)
[2019-11-28] MEDS: TRAZODONE HCL 100 MG TAB PO SCH (21:05)
[2019-11-29] MEDS: NICOTINE 14 MG/24 HR PATCH TD SCH (08:15)
[2019-11-29] MEDS: CITALOPRAM 20 MG TAB PO SCH (08:15)
[2019-11-29] MEDS: SERTRALINE HCL 50 MG TABLET PO SCH (08:16)
[2019-11-29] MEDS: lisinopriL 20 MG TAB PO SCH (08:16)
[2019-11-29] MEDS ORDERED: LORazepam 1 MG TAB PO PRN ×2 (09:17→14:42)
--- NOTE | 2019-11-29 12:48 | Psychiatric Progress Note ---
Date of Service November 29, 2019 Impression / Recommendations Impression 59 yo female with a remote history of alcoholism (sober >16 years), presents with recurrent depression and worsening anxiety following the of her and other COVID-related stressors. She seems to be seeking Ativan and it's not 100% certain that her recent ETOH use hx is accurate and her current MSE could be suggestive of mild early withdrawal. (1) Major depression, recurrent: The patient was admitted to the [facility] ([facility] mental health unit) on q15 min checks (behavioral with suicide precautions) for safety. The patient will participate in group, recreational, and milieu therapies and will be offered additional individual and family sessions as clinically appropriate. She feels her anxiety is primary. Discussed possible titration of Celexa but will defer to tomorrow, discussed FDA warnings re: QTc changes at higher doses and given combo with hydroxyzine feel in best interest to check EKG. 11/27 -Patient has been on Celexa 40 mg since March 2019 for increased depression and she has been having anticipatory anxiety associated with remission of MDD with recent stressors, including her 's in June of this year and self quarantine during COVID-19 outbreak. -Patient agrees to switch her SSRI to sertraline since citalopram does not control her anxiety and depressive symptoms that well. Cross titration will start from tomorrow morning and she will be on sertraline 50 mg with citalopram 20 mg for the next 2 to 3 days. If patient tolerates cross titration pretty well then further titration of sertraline will be considered up to 100 to 150 mg before discharge. Patient was informed of our treatment plan today. 11/28 -Cross titration will be continued for the next 1 or 2 more days and the patient denies any withdrawal symptoms of citalopram or side effects of sertraline. -Patient's suicidal ideation is a little bit better during the hospitalization but she is concerned that she might feel unsafe at home when she is discharged. -Will attempt to set up a family meeting with her daughter and or family members when she feels more stable. (2) Alcohol abuse: binge drank last night, suspect other use, hx of benzo misuse as well--will implement AWSS protocol with Ativan prn with parameters for withdrawal. Will not load with Neurontin at this time but monitor. Reviewed with patient that Ativan will not be given for anxiety and rationale given controlled substance. 11/27 -Patient's AWSS elevated to 6 this afternoon with significantly high blood pressure and even though patient states that she had only 1 day alcohol consumption after 16 years of sobriety, she might need some intervention for her alcohol consumption. -Brief intervention was offered and accepted Intervention was greater than 5 min in length. Brief interventions include: 1. Assess Readiness to Quit, 2. Advise: Help Patient to Reduce or Abstain from Alcohol, 3. Agree: Set Specific, Feasible Goals, 4. Assist: Anticipate barriers, Problem-Solving Solutions. Social work to 5. Arrange: Referrals to appropriate treatment. 11/28 -Patient admits to alcohol consumption 2 consecutive nights before the admission but denies any relapse in her alcohol problems. -Her elevated blood pressure is more likely due to alcohol withdrawal and blood pressure will be monitored closely without adjustment of her blood pressure medications since patient's denies any physical symptoms associated with high blood pressure, such as headaches, dizziness, blurred vision chest pain, or shortness of breath. (3) Generalized anxiety disorder: consider adjustment to antidepressant as above. Avoid benzodiazepines except for withdrawal. For geoffreyight discussed use of neurontin 300 mg. Discussion included but was not limited to risks in combination with sedating substances and ETOH. PDMP does not show any benzo scripts from outside providers since March. 11/27 -Patient is still wants to take Ativan because nothing helps her anxiety except Ativan. Risks/benefits/alternatives reviewed re: benzodiazepine use. Discussion included but was not limited to risks of dependence and possible respiratory depression if combined with agents like alcohol or opiates. Patient understands that this provider's concern over use of benzodiazepine and she will try to use hydroxyzine when her anxiety gets bad, even though it does not work that well for her anxiety. 11/28 -Patient is not focused on use of Ativan too much today but states that hydroxyzine does not help anxiety much. -Her insight into anxiety seems to be improved since yesterday since that she processes anxiety as not reality based. 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 Review of Systems Notes Constitutional: denied cardiovascular: denied Respiratory: denied GI: denied Neurologic: denied Psychiatric: denies symptoms other than stated above Remainder of 10 body systems also reviewed and denied other than noted above. Sleep Information Total Hours of Sleep: 8 Sleep Comments: pt on q-15 minute checks Meal Information Percent Meal Consumed - Breakfast: 100 Percent Meal Consumed - Lunch: 100 Percent Meal Consumed - Dinner: 100 Subjective Subjective Patient was seen & assessed and interval progress reviewed with treatment team. Staff report that patient has been attending programmings even though multiple prompts needed and watching TV in most of her free time. PRN Ativan utilized twice per AWSS protocol with significantly elevated blood pressure yesterday. She rated her mood 6/10 and "pretty calm "in the community meeting this morning. Patient was seen today to assess progress since admission. Patient reports that she feels a little bit better since the admission but she cannot break the negative thought patterns, which anxiety has been making up. She states that she knows it is not reality based thought. She says that she tried to stay with her family members to get rid of these negative thoughts but she did not feel safe staying with them anymore because of her negative thoughts and anxiety. She admits that they love her but her anxiety makes her think that she does not love them as she used to and she cannot even hold her grand children because of all the concerns and worries. Reports that her safety plan worked pretty well before this episode started a couple months ago but she does not know what she can do for her anxiety at this point. With this episode, she cannot tolerate her racing thoughts but she also endorses her depressive symptoms, including anhedonia, anergia, amotivation, insomnia, problems concentrating, loss of appetite, feeling hopeless and passive suicidal ideation. Her suicidal ideation is a little bit better but she is not sure that she would be safe after discharge and she will stay at her mother's house for a couple days after discharge. She denies any side effects of sertraline and discontinuation symptoms of citalopram. Sleep and appetite are all good. Patient states that her blood pressure has been controlled pretty well except when she was hospitalized in March and this time. She thinks her blood pressure is due to increased anxiety and denies any alcohol consumption except 2 consecutive nights before admission. She has been on lisinopril 20 mg for hypertension. She was informed that we will watch her blood pressure more closely and if it is consistently high for the next couple more days, then adjustment of her hypertensive medications will be considered. Patient denies any physical symptoms associated with elevated blood pressure. Physical Exam Psychiatric Orientation: alert and oriented x 3 Apperance: appropriately dressed and appropriately groomed Eye Contact: + fair eye contact Motor Behavior: steady gait and station and no abnormal motor movements Speech: normal rate/rhythm/volume of speech Affect: + depressed affect and + anxious affect Mood: + depressed mood and + anxious mood Thought Process: linear/logical thought process and clear/coherent thought process Thought Content: reality based without delusions, + loneliness and + guilt Suicidal Thoughts: denies suicidal plan and denies suicidal intent her passive SI is a little bit better than before the admission. Homicidal Thoughts: denies homicidal thoughts Hallucinations: no auditory hallucinations and no visual hallucinations Cognition: recent memory grossly intact, attention grossly intact and language grossly intact Estimated Intelligence: consistent with education level Insight: + fair insight Judgement: + fair judgement Vital Signs (Past 24 Hours) Last Vital Signs Temp 36.7 C 11/29/19 10:44 Pulse 93 H 11/29/19 10:44 Resp 18 11/29/19 10:44 BP 168/95 H 11/29/19 10:44 Pulse Ox 96 11/27/19 12:57 Results & Data ([facility]) Current Inpatient Medications Current Inpatient Medications: Current Inpatient Medications Acetaminophen (Tylenol) 650 mg PO Q4H PRN PRN Reason: Headache or Minor Fever Stop: 12/27/19 12:19 Al Hydrox/Mg Hydrox/Simethicone (Maalox) 30 ml PO Q4H PRN PRN Reason: GI Upset Stop: 12/27/19 12:19 Atorvastatin Calcium (Lipitor) 20 mg PO [facility] Stop: 12/27/19 20:59 Last Admin: 11/28/19 21:04 Dose: 20 mg Documented by: Bismuth Subsalicylate (Kaopectate) 15 ml PO PRN PRN PRN Reason: Loose Stool Stop: 12/27/19 12:19 Citalopram Hydrobromide (Celexa) 20 mg PO DAILY [facility] Stop: 12/29/19 08:59 Last Admin: 11/29/19 08:15 Dose: 20 mg Documented by: Gabapentin (Neurontin) 300 mg PO [facility] Stop: 12/27/19 21:59 Last Admin: 11/28/19 21:04 Dose: 300 mg Documented by: Hydroxyzine HCl (Vistaril) 50 mg PO HSZ PRN PRN Reason: Insomnia Stop: 12/27/19 12:19 Hydroxyzine HCl (Vistaril) 25 mg PO Q4H PRN PRN Reason: Anxiety Stop: 12/27/19 12:19 Last Admin: 11/28/19 10:47 Dose: 25 mg Documented by: Lisinopril (Zestril) 20 mg PO DAILY [facility] Stop: 12/28/19 08:59 Last Admin: 11/29/19 08:16 Dose: 20 mg Documented by: Lorazepam (Ativan) 1 mg PO Q6 PRN; Protocol PRN Reason: EtoH Withdrawal AWSS 6-10 Magnesium Hydroxide (Milk Of Magnesia) 30 ml PO DAILY PRN PRN Reason: Constipation Stop: 12/27/19 12:19 Miscellaneous (Remove Nicoderm Patch) 1 ea N/A DAILY@0859 [facility] Stop: 12/28/19 08:58 Last Admin: 11/29/19 08:15 Dose: 1 ea Documented by: Nicotine (Nicoderm Cq) 14 mg TD DAILY [facility] Stop: 12/28/19 08:59 Last Admin: 11/29/19 08:15 Dose: 14 mg Documented by: Sertraline HCl (Zoloft) 50 mg PO QAM [facility] Stop: 12/29/19 08:59 Last Admin: 11/29/19 08:16 Dose: 50 mg Documented by: Sodium Chloride ([place] Nasal) 1 - 2 sprays NA PRN PRN PRN Reason: Nasal Dryness/Congestion Stop: 12/27/19 12:19 Trazodone HCl (Desyrel) 100 mg PO HS [facility] Stop: 12/27/19 20:59 Last Admin: 11/28/19 21:05 Dose: 100 mg Documented by: Mental Health & Subst Abuse Tx Psychiatrist Name of Psychiatrist: Elizabeth Cordero Psychiatrist's Psychiatric Appointment Comment: [phone], [place] [address] Therapist Name of Therapist: [facility] Therapist's Therapy Appointment Comment: [address] [facility] Fur Cutter Name of Fur Cutter: None Post Discharge Appointments Primary Care Physician Name Of Family Doctor: SEAMUS Gonzalez Primary Care Provider Appointment Comment: [address], [address], [place] [address] Contact Information Discharge Discharge Address: [address] [place] [address], [place] [address] (1) Major depression, recurrent Active/Remission status: currently active Major depression episode severity: severe Psychotic features: without psychotic features Qualified Code(s): F33.2 - Major depressive disorder, recurrent severe without psychotic features
[2019-11-29] MEDS: TRAZODONE HCL 100 MG TAB PO SCH (21:12)
[2019-11-29] MEDS: GABAPENTIN 300 MG CAP PO SCH (21:12)
[2019-11-29] MEDS: ATORVASTATIN 20 MG TAB PO SCH (21:12)
[2019-11-30 06:30] LABS: MDA negative; MDEA negative; MDMA (Ecstasy) Urine, Confirm negative
[2019-11-30] MEDS: CITALOPRAM 20 MG TAB PO SCH (07:49)
[2019-11-30] MEDS: SERTRALINE HCL 50 MG TABLET PO SCH (07:49)
[2019-11-30] MEDS: lisinopriL 20 MG TAB PO SCH (07:49)
[2019-11-30] MEDS: NICOTINE 14 MG/24 HR PATCH TD SCH (07:50)
[2019-11-30] MEDS ORDERED: lisinopriL 10 MG TAB PO SCH (09:30)
--- NOTE | 2019-11-30 09:36 | Psychiatric Progress Note ---
Date of Service November 30, 2019 Impression / Recommendations Impression 59 yo female with a remote history of alcoholism (sober >16 years), presents with recurrent depression and worsening anxiety following the of her and other COVID-related stressors. She seems to be seeking Ativan and it's not 100% certain that her recent ETOH use hx is accurate and her current MSE could be suggestive of mild early withdrawal. (1) Major depression, recurrent: The patient was admitted to the [facility] on q15 min checks (behavioral with suicide precautions) for safety. The patient will participate in group, recreational, and milieu therapies and will be offered additional individual and family sessions as clinically appropriate. She feels her anxiety is primary. Discussed possible titration of Celexa but will defer to tomorrow, discussed FDA warnings re: QTc changes at higher doses and given combo with hydroxyzine feel in best interest to check EKG. 11/27 -Patient has been on Celexa 40 mg since March 2019 for increased depression and she has been having anticipatory anxiety associated with remission of MDD with recent stressors, including her 's in June of this year and self quarantine during COVID-19 outbreak. -Patient agrees to switch her SSRI to sertraline since citalopram does not control her anxiety and depressive symptoms that well. Cross titration will start from tomorrow morning and she will be on sertraline 50 mg with citalopram 20 mg for the next 2 to 3 days. If patient tolerates cross titration pretty well then further titration of sertraline will be considered up to 100 to 150 mg before discharge. Patient was informed of our treatment plan today. 11/28 -Cross titration will be continued for the next 1 or 2 more days and the patient denies any withdrawal symptoms of citalopram or side effects of sertraline. -Patient's suicidal ideation is a little bit better during the hospitalization but she is concerned that she might feel unsafe at home when she is discharged. -Will attempt to set up a family meeting with her daughter and or family members when she feels more stable. 11/29 -Continue current treatment regimen. Sertraline will be titrated up to 100 mg tomorrow and citalopram 20 mg will be discontinued from tomorrow. (2) Alcohol abuse: binge drank last night, suspect other use, hx of benzo misuse as well--will implement AWSS protocol with Ativan prn with parameters for withdrawal. Will not load with Neurontin at this time but monitor. Reviewed with patient that Ativan will not be given for anxiety and rationale given controlled substance. 11/27 -Patient's AWSS elevated to 6 this afternoon with significantly high blood pressure and even though patient states that she had only 1 day alcohol consumption after 16 years of sobriety, she might need some intervention for her alcohol consumption. -Brief intervention was offered and accepted Intervention was greater than 5 min in length. Brief interventions include: 1. Assess Readiness to Quit, 2. Advise: Help Patient to Reduce or Abstain from Alcohol, 3. Agree: Set Specific, Feasible Goals, 4. Assist: Anticipate barriers, Problem-Solving Solutions. Social work to 5. Arrange: Referrals to appropriate treatment. 11/28 -Patient admits to alcohol consumption 2 consecutive nights before the admission but denies any relapse in her alcohol problems. -Her elevated blood pressure is more likely due to alcohol withdrawal and blood pressure will be monitored closely without adjustment of her blood pressure medications since patient's denies any physical symptoms associated with high blood pressure, such as headaches, dizziness, blurred vision chest pain, or shortness of breath. (3) Generalized anxiety disorder: consider adjustment to antidepressant as above. Avoid benzodiazepines except for withdrawal. For tonight discussed use of neurontin 300 mg. Discussion included but was not limited to risks in combination with sedating substances and ETOH. PDMP does not show any benzo scripts from outside providers since March. 11/27 -Patient is still wants to take Ativan because nothing helps her anxiety except Ativan. Risks/benefits/alternatives reviewed re: benzodiazepine use. Discussion included but was not limited to risks of dependence and possible respiratory depression if combined with agents like alcohol or opiates. Patient understands that this provider's concern over use of benzodiazepine and she will try to use hydroxyzine when her anxiety gets bad, even though it does not work that well for her anxiety. 11/28 -Patient is not focused on use of Ativan too much today but states that hydroxyzine does not help anxiety much. -Her insight into anxiety seems to be improved since yesterday since that she processes anxiety as not reality based. 11/29 -Neurontin 300 mg for anxiety will be continued until sertraline is titrated up further. (4) HTN (hypertension): 11/29 -Lisinopril 10 mg added to her current dose, lisinopril 20 mg, this morning to control persistently elevated blood pressure and she will be on total 30 mg of l isinopril from today. 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 Review of Systems Sleep Information Total Hours of Sleep: 7.75 Sleep Comments: pt on q-15 minute checks Meal Information Percent Meal Consumed - Breakfast: 100 Percent Meal Consumed - Lunch: 100 Percent Meal Consumed - Dinner: 100 Subjective Subjective Patient was seen & assessed and interval progress reviewed with nursing and social work. Staff reports that she rated her mood 12/28 and "relaxed" in the meeting this morning. Also reports that her blood pressure has been consistently high even though patient states her anxiety gets better. Patient has a family meeting with 2 daughters at 10 AM. Patient was seen today to assess her progress since admission. Patient reports she cannot get rid of her negative thoughts. States that her family meeting with her daughters went pretty well and they all understand that everything is in her mind. They agreed with the plan that she will stay at her mother's house for a while after discharge. Patient states she still has anxiety with minimal improvement but understands that she is on cross titration at this point. Has been on Neurontin for anxiety before bedtime but she does not see any change in her anxiety with the Neurontin and declines titration of Neurontin. Patient is still has residual suicidal ideation but it comes and goes depending on her anxiety level. She thinks therapy and group programming has been helping her a lot. She reports that her sleep and appetite are good. Denies side effects of sertraline. Lisinopril 10 mg was added to her current hypertensive treatment regimen to control her blood pressure. Physical Exam Vital Signs (Past 24 Hours) Last Vital Signs Temp 36.5 C 11/30/19 06:43 Pulse 101 H 11/30/19 06:43 Resp 20 11/30/19 06:43 BP 160/101 H 11/30/19 06:43 Pulse Ox 96 11/27/19 12:57 Results & Data ([facility]) Laboratory Results Laboratory Results - last 24 hr 11/27/19 10:15 Urine MDEA negative MDMA negative Urine MDMA negative Current Inpatient Medications Current Inpatient Medications: Current Inpatient Medications Acetaminophen (Tylenol) 650 mg PO Q4H PRN PRN Reason: Headache or Minor Fever Stop: 12/27/19 12:19 Al Hydrox/Mg Hydrox/Simethicone (Maalox) 30 ml PO Q4H PRN PRN Reason: GI Upset Stop: 12/27/19 12:19 Atorvastatin Calcium (Lipitor) 20 mg PO HS [facility] Stop: 12/27/19 20:59 Last Admin: 11/29/19 21:12 Dose: 20 mg Documented by: Bismuth Subsalicylate (Kaopectate) 15 ml PO PRN PRN PRN Reason: Loose Stool Stop: 12/27/19 12:19 Citalopram Hydrobromide (Celexa) 20 mg PO DAILY [facility] Stop: 12/29/19 08:59 Last Admin: 11/30/19 07:49 Dose: 20 mg Documented by: Gabapentin (Neurontin) 300 mg PO HS [facility] Stop: 12/27/19 21:59 Last Admin: 11/29/19 21:12 Dose: 300 mg Documented by: Hydroxyzine HCl (Vistaril) 50 mg PO HSZ PRN PRN Reason: Insomnia Stop: 12/27/19 12:19 Hydroxyzine HCl (Vistaril) 25 mg PO Q4H PRN PRN Reason: Anxiety Stop: 12/27/19 12:19 Last Admin: 11/28/19 10:47 Dose: 25 mg Documented by: Lisinopril (Zestril) 20 mg PO DAILY [facility] Stop: 12/28/19 08:59 Last Admin: 11/30/19 07:49 Dose: 20 mg Documented by: Lisinopril (Zestril) 10 mg PO QAM [facility] Stop: 12/30/19 09:29 Lorazepam (Ativan) 1 - 3 mg PO UD PRN; Protocol PRN Reason: EtoH Withdrawal AWSS 6-10+ Stop: 12/29/19 14:41 Magnesium Hydroxide (Milk Of Magnesia) 30 ml PO DAILY PRN PRN Reason: Constipation Stop: 12/27/19 12:19 Miscellaneous (Remove Nicoderm Patch) 1 ea N/A DAILY@0859 [facility] Stop: 12/28/19 08:58 Last Admin: 11/30/19 07:51 Dose: 1 ea Documented by: Nicotine (Nicoderm Cq) 14 mg TD DAILY [facility] Stop: 12/28/19 08:59 Last Admin: 11/30/19 07:50 Dose: 14 mg Documented by: Sertraline HCl (Zoloft) 50 mg PO QAM [facility] Stop: 12/29/19 08:59 Last Admin: 11/30/19 07:49 Dose: 50 mg Documented by: Sodium Chloride (Day Nasal) 1 - 2 sprays NA PRN PRN PRN Reason: Nasal Dryness/Congestion Stop: 12/27/19 12:19 Trazodone HCl (Desyrel) 100 mg PO HS [facility] Stop: 12/27/19 20:59 Last Admin: 11/29/19 21:12 Dose: 100 mg Documented by: Mental Health & Subst Abuse Tx Psychiatrist Name of Psychiatrist: Elizabeth Cordero Psychiatrist's Date of Appointment with Psychiatrist: 12/08/19 Time of Appointment with Psychiatrist: 11:30 a.m. Psychiatric Appointment Comment: [address] [place] [id number] Therap[facility] Therapist's Date of Therapist Appointment: 12/06/19 Time of Therapist Appointment: 12:00 p.m. Therapy Appointment Comment: Telehealth Mat Man Name of Mat Man: None Post Discharge Appointments Primary Care Physician Name Of Family Doctor: SEAMUS Gonzalez Primary Care Date of Appointment with PCP: 12/12/19 Time of Appointment with PCP: 10:20 a.m. (In person) Provider Appointment Comment: [address] [facility], [address], [place] [address] Contact Information Discharge Discharge Address: [address] [place] [address] (1) Major depression, recurrent Active/Remission status: currently active Major depression episode severity: severe Psychotic features: without psychotic features Qualified Code(s): F33.2 - Major depressive disorder, recurrent severe without psychotic features
[2019-11-30] MEDS ORDERED: cloNIDine HCL 0.1 MG TAB PO ONE (19:17)
[2019-11-30] MEDS: TRAZODONE HCL 100 MG TAB PO SCH (21:06)
[2019-11-30] MEDS: ATORVASTATIN 20 MG TAB PO SCH (21:07)
[2019-11-30] MEDS: GABAPENTIN 300 MG CAP PO SCH (21:07)
[2019-12-01] MEDS: NICOTINE 14 MG/24 HR PATCH TD SCH (09:38)
[2019-12-01] MEDS: lisinopriL 10 MG TAB PO SCH (09:38)
[2019-12-01] MEDS: SERTRALINE HCL 100 MG TABLET PO SCH (09:39)
--- NOTE | 2019-12-01 09:40 | Psychiatric Progress Note ---
Date of Service December 01, 2019 Impression / Recommendations Impression 59 yo female with a remote history of alcoholism (sober >16 years), presents with recurrent depression and worsening anxiety following the of her and other COVID-related stressors. She seems to be seeking Ativan and it's not 100% certain that her recent ETOH use hx is accurate and her current MSE could be suggestive of mild early withdrawal. (1) Major depression, recurrent: The patient was admitted to the [facility] ([facility]) on q15 min checks (behavioral with suicide precautions) for safety. The patient will participate in group, recreational, and milieu therapies and will be offered additional individual and family sessions as clinically appropriate. She feels her anxiety is primary. Discussed possible titration of Celexa but will defer to tomorrow, discussed FDA warnings re: QTc changes at higher doses and given combo with hydroxyzine feel in best interest to check EKG. 11/27 -Patient has been on Celexa 40 mg since March 2019 for increased depression and she has been having anticipatory anxiety associated with remission of MDD with recent stressors, including her 's in June of this year and self quarantine during COVID-19 outbreak. -Patient agrees to switch her SSRI to sertraline since citalopram does not control her anxiety and depressive symptoms that well. Cross titration will start from tomorrow morning and she will be on sertraline 50 mg with citalopram 20 mg for the next 2 to 3 days. If patient tolerates cross titration pretty well then further titration of sertraline will be considered up to 100 to 150 mg before discharge. Patient was informed of our treatment plan today. 11/28 -Cross titration will be continued for the next 1 or 2 more days and the patient denies any withdrawal symptoms of citalopram or side effects of sertraline. -Patient's suicidal ideation is a little bit better during the hospitalization but she is concerned that she might feel unsafe at home when she is discharged. -Will attempt to set up a family meeting with her daughter and or family members when she feels more stable. 11/29 -Continue current treatment regimen. Sertraline will be titrated up to 100 mg tomorrow and citalopram 20 mg will be discontinued from tomorrow. 11/30 -Continue current treatment regimen. Sertraline titrated up to 100 mg a day and discontinuation of escitalopram was tolerated pretty well. If she does not show any significant side effects, then sertraline will be titrated to more up to 150 mg Wednesday. (2) Alcohol abuse: binge drank last night, suspect other use, hx of benzo misuse as well--will implement AWSS protocol with Ativan prn with parameters for withdrawal. Will not load with Neurontin at this time but monitor. Reviewed with patient that Ativan will not be given for anxiety and rationale given controlled substance. 11/27 -Patient's AWSS elevated to 6 this afternoon with significantly high blood pressure and even though patient states that she had only 1 day alcohol consumption after 16 years of sobriety, she might need some intervention for her alcohol consumption. -Brief intervention was offered and accepted Intervention was greater than 5 min in length. Brief interventions include: 1. Assess Readiness to Quit, 2. Advise: Help Patient to Reduce or Abstain from Alcohol, 3. Agree: Set Specific, Feasible Goals, 4. Assist: Anticipate barriers, Problem-Solving Solutions. Social work to 5. Arrange: Referrals to appropriate treatment. 11/28 -Patient admits to alcohol consumption 2 consecutive nights before the admission but denies any relapse in her alcohol problems. -Her elevated blood pressure is more likely due to alcohol withdrawal and blood pressure will be monitored closely without adjustment of her blood pressure medications since patient's denies any physical symptoms associated with high blood pressure, such as headaches, dizziness, blurred vision chest pain, or shortness of breath. 11/30 -AWSS protocol discontinued. (3) Generalized anxiety disorder: consider adjustment to antidepressant as above. Avoid benzodiazepines except for withdrawal. For geoffreyight discussed use of neurontin 300 mg. Discussion included but was not limited to risks in combination with sedating substances and ETOH. PDMP does not show any benzo scripts from outside providers since March. 11/27 -Patient is still wants to take Ativan because nothing helps her anxiety except Ativan. Risks/benefits/alternatives reviewed re: benzodiazepine use. Discussion included but was not limited to risks of dependence and possible respiratory depression if combined with agents like alcohol or opiates. Patient understands that this provider's concern over use of benzodiazepine and she will try to use hydroxyzine when her anxiety gets bad, even though it does not work that well for her anxiety. 11/28 -Patient is not focused on use of Ativan too much today but states that hydroxyzine does not help anxiety much. -Her insight into anxiety seems to be improved since yesterday since that she processes anxiety as not reality based. 11/29 -Neurontin 300 mg for anxiety will be continued until sertraline is titrated up further. 11/30 -Scheduled dose of clonidine will be considered instead of Neurontin 300 mg for anxiety since patient reports clonidine related to her anxiety better than Neurontin. Her blood pressure will be monitored closely today to see if she develops significantly low blood pressure with increased dose of lisinopril and clonidine, which was administered last night. (4) HTN (hypertension): 11/29 -Lisinopril 10 mg added to her current dose, lisinopril 20 mg, this morning to control persistently elevated blood pressure and she will be on total 30 mg of lisinopril from today. 11/30 -Lisinopril 30 mg and clonidine 0.1 mg seem to control her blood pressure and scheduled use of clonidine will be considered if she does not develop hypotension today. Risk Factors Assessment Do You Have Access To A Gun?: No Protective Factors Assessment Employed: Yes (Works at a [employer]/not working since [facility] [facility]) Interval History Chief Complaint " I feel a little bit better today". Review of Systems Notes Constitutional: denied cardiovascular: denied Respiratory: denied GI: denied Neurologic: denied Psychiatric: denies symptoms other than stated above Remainder of 10 body systems also reviewed and denied other than noted above. Sleep Information Total Hours of Sleep: 6.75 Sleep Comments: pt on q-15 minute checks Meal Information Percent Meal Consumed - Breakfast: 100 Percent Meal Consumed - Lunch: 100 Percent Meal Consumed - Dinner: 100 Subjective Subjective Patient was seen & assessed and interval progress reviewed with treatment team. Staff reports her anxiety has been getting better but her suicidal ideation is a still ongoing. She has been attending/participating in unit programmings. Rated her mood 5/10 and "relaxed" in the community meeting yesterday evening. She utilized as needed hydroxyzine for anxiety and 0.1 mg clonidine was given for elevated blood pressure since her blood pressure was still elevated, even though she had additional 10 mg of lisinopril. total 30 mg lisinopril, yesterday morning. Patient was seen today to assess progress since admission. Patient reports she feels better and her blood pressure has gone down more today. She states that clonidine helped her anxiety somewhat and she prefers clonidine over Neurontin for anxiety. Sertraline 100 mg was given today with complete discontinuation of citalopram and patient does not have any side effects of sertraline. She has been taking trazodone 100 mg for sleep but she had a couple of unpleasant dreams last night and her sleep quality was not that good. She reports that this has been ongoing problem for the past couple months with increased anxiety. Patient states that the severity and frequency of anxiety episodes and passive suicidal ideations have improved during the hospital stay but she complains that she cannot get rid of her negative thoughts completely. She was educated regarding the roles of medication management and CBT since she perceives that medication will fix all her problem completely if it starts to kick in. She has an appointment with Kirstin Acosta, outpatient therapist at [facility], next week and was encouraged to see her more often until she sets up and practices her healthy coping skills since she has seen her therapist once every other week. She was also encouraged to work on healthy coping skills with our social workers and therapists on the unit when she has anxiety movements after discharge. Physical Exam Psychiatric Orientation: alert and oriented x 3 Apperance: appropriately dressed and appropriately groomed Eye Contact: good eye contact Motor Behavior: steady gait and station and no abnormal motor movements Speech: normal rate/rhythm/volume of speech Affect: + depressed affect (improved today, smiling more frequently than other days) and + anxious affect (occasionally) Mood: + depressed mood and + anxious mood (reporting improvement) Thought Process: linear/logical thought process and clear/coherent thought process Thought Content: reality based without delusions Suicidal Thoughts: denies suicidal plan and denies suicidal intent; + reports suicidal thoughts Homicidal Thoughts: denies homicidal thoughts Hallucinations: no auditory hallucinations and no visual hallucinations Cognition: recent memory grossly intact, attention grossly intact and language grossly intact Estimated Intelligence: consistent with education level Insight: + fair insight Judgement: + fair judgement Vital Signs (Past 24 Hours) Last Vital Signs Temp 36.7 C 12/01/19 06:50 Pulse 84 12/01/19 06:50 Resp 18 12/01/19 06:50 BP 147/88 H 12/01/19 06:50 Pulse Ox 96 11/27/19 12:57 Results & Data (U) Current Inpatient Medications Current Inpatient Medications: Current Inpatient Medications Acetaminophen (Tylenol) 650 mg PO Q4H PRN PRN Reason: Headache or Minor Fever Stop: 12/27/19 12:19 Al Hydrox/Mg Hydrox/Simethicone (Maalox) 30 ml PO Q4H PRN PRN Reason: GI Upset Stop: 12/27/19 12:19 Atorvastatin Calcium (Lipitor) 20 mg PO [facility] Stop: 12/27/19 20:59 Last Admin: 11/30/19 21:07 Dose: 20 mg Documented by: Bismuth Subsalicylate (Kaopectate) 15 ml PO PRN PRN PRN Reason: Loose Stool Stop: 12/27/19 12:19 Clonidine HCl (Catapres) 0.1 mg PO PRN PRN PRN Reason: Blood Pressure - High Stop: 12/31/19 08:44 Gabapentin (Neurontin) 300 mg PO [facility] Stop: 12/27/19 21:59 Last Admin: 11/30/19 21:07 Dose: 300 mg Documented by: Hydroxyzine HCl (Vistaril) 50 mg PO HSZ PRN PRN Reason: Insomnia Stop: 12/27/19 12:19 Last Admin: 11/30/19 22:41 Dose: 50 mg Documented by: Hydroxyzine HCl (Vistaril) 25 mg PO Q4H PRN PRN Reason: Anxiety Stop: 12/27/19 12:19 Last Admin: 11/30/19 17:58 Dose: 25 mg Documented by: Lisinopril (Zestril) 30 mg PO QAM [facility] Stop: 12/31/19 08:59 Lorazepam (Ativan) 1 - 3 mg PO UD PRN; Protocol PRN Reason: EtoH Withdrawal AWSS 6-10+ Stop: 12/29/19 14:41 Magnesium Hydroxide (Milk Of Magnesia) 30 ml PO DAILY PRN PRN Reason: Constipation Stop: 12/27/19 12:19 Miscellaneous (Remove Nicoderm Patch) 1 ea N/A DAILY@59 [facility] Stop: 12/28/19 08:58 Last Admin: 11/30/19 07:51 Dose: 1 ea Documented by: Nicotine (Nicoderm Cq) 14 mg TD DAILY [facility] Stop: 12/28/19 08:59 Last Admin: 11/30/19 07:50 Dose: 14 mg Documented by: Sertraline HCl (Zoloft) 100 mg PO QAM [facility] Stop: 12/31/19 08:59 Sodium Chloride ([place] Nasal) 1 - 2 sprays NA PRN PRN PRN Reason: Nasal Dryness/Congestion Stop: 12/27/19 12:19 Trazodone HCl (Desyrel) 100 mg PO HS [facility] Stop: 12/27/19 20:59 Last Admin: 11/30/19 21:06 Dose: 100 mg Documented by: Mental Health & Subst Abuse Tx Psychiatrist Name of Psychiatrist: Elizabeth Cordero Psychiatrist's Date of Appointment with Psychiatrist: 12/08/19 Time of Appointment with Psychiatrist: 11:30 a.m. Psychiatric Appointment Comment: [address] [place] [address] [place] [address] Therapist Name of Therapist: Enohm Eben Acosta Therapist's Date of Therapist Appointment: 12/06/19 Time of Therapist Appointment: 12:00 p.m. Therapy Appointment Comment: Telehealth Application Administrator Name of Application Administrator: None Post Discharge Appointments Primary Care Physician Name Of Family Doctor: SEAMUS Gonzalez Primary Care Date of Appointment with PCP: 12/12/19 Time of Appointment with PCP: 10:20 a.m. (In person) Provider Appointment Comment: [address] [facility], [place] [address] Contact Information Discharge Discharge Address: [address] [place] [address] (1) Major depression, recurrent Active/Remission status: currently active Major depression episode severity: severe Psychotic features: without psychotic features Qualified Code(s): F33.2 - Major depressive disorder, recurrent severe without psychotic features
[2019-12-01] MEDS: cloNIDine HCL 0.1 MG TAB PO PRN (20:00)
[2019-12-01] MEDS: ATORVASTATIN 20 MG TAB PO SCH (21:12)
[2019-12-01] MEDS: TRAZODONE HCL 100 MG TAB PO SCH (21:12)
[2019-12-01] MEDS: GABAPENTIN 300 MG CAP PO SCH (21:13)
[2019-12-02] MEDS: NICOTINE 14 MG/24 HR PATCH TD SCH (07:29)
[2019-12-02] MEDS: lisinopriL 10 MG TAB PO SCH (07:31)
[2019-12-02] MEDS: SERTRALINE HCL 100 MG TABLET PO SCH (07:31)
[2019-12-02] MEDS ORDERED: NICOTINE POLACRILEX 2 MG GUM MT PRN (11:36)
[2019-12-02] MEDS: NICOTINE 21 MG/24 HR TDSY TD SCH (13:05)
[2019-12-02] MEDS: cloNIDine HCL 0.1 MG TAB PO PRN (14:26)
--- NOTE | 2019-12-02 20:09 | Psychiatric Progress Note ---
Date of Service December 02, 2019 Impression / Recommendations Impression 59 yo female with a remote history of alcoholism (sober >16 years), presents with recurrent depression and worsening anxiety following the of her and other COVID-related stressors. She seems to be seeking Ativan and it's not 100% certain that her recent ETOH use hx is accurate and her current MSE could be suggestive of mild early withdrawal. numbness is likely tied to her depressive symptoms and her disengagement and her ways of handling her stress, and how preoccupied she is with her worrying (1) Major depression, recurrent: The patient was admitted to the [facility] ([facility] unit) on q15 min checks (behavioral with suicide precautions) for safety. The patient will participate in group, recreational, and milieu therapies and will be offered additional individual and family sessions as clinically appropriate. She feels her anxiety is primary. Discussed possible titration of Celexa but will defer to tomorrow, discussed FDA warnings re: QTc changes at higher doses and given combo with hydroxyzine feel in best interest to check EKG. 11/27 -Patient has been on Celexa 40 mg since March 2019 for increased depression and she has been having anticipatory anxiety associated with remission of MDD with recent stressors, including her 's in June of this year and self quarantine during COVID-19 outbreak. -Patient agrees to switch her SSRI to sertraline since citalopram does not control her anxiety and depressive symptoms that well. Cross titration will start from tomorrow morning and she will be on sertraline 50 mg with citalopram 20 mg for the next 2 to 3 days. If patient tolerates cross titration pretty well then further titration of sertraline will be considered up to 100 to 150 mg before discharge. Patient was informed of our treatment plan today. 11/28 -Cross titration will be continued for the next 1 or 2 more days and the patient denies any withdrawal symptoms of citalopram or side effects of sertraline. -Patient's suicidal ideation is a little bit better during the hospitalization but she is concerned that she might feel unsafe at home when she is discharged. -Will attempt to set up a family meeting with her daughter and or family members when she feels more stable. 11/29 -Continue current treatment regimen. Sertraline will be titrated up to 100 mg tomorrow and citalopram 20 mg will be discontinued from tomorrow. 11/30 -Continue current treatment regimen. Sertraline titrated up to 100 mg a day and discontinuation of escitalopram was tolerated pretty well. If she does not show any significant side effects, then sertraline will be titrated to more up to 150 mg Wednesday. 12/01 raised zolfot to 150mg a day as of 12/02 am dose (2) Alcohol abuse: binge drank last night, suspect other use, hx of benzo misuse as well--will implement AWSS protocol with Ativan prn with parameters for withdrawal. Will not load with Neurontin at this time but monitor. Reviewed with patient that Ativan will not be given for anxiety and rationale given controlled substance. 11/27 -Patient's AWSS elevated to 6 this afternoon with significantly high blood pressure and even though patient states that she had only 1 day alcohol consumption after 16 years of sobriety, she might need some intervention for her alcohol consumption. -Brief intervention was offered and accepted Intervention was greater than 5 min in length. Brief interventions include: 1. Assess Readiness to Quit, 2. Advise: Help Patient to Reduce or Abstain from Alcohol, 3. Agree: Set Specific, Feasible Goals, 4. Assist: Anticipate barriers, Problem-Solving Solutions. Social work to 5. Arrange: Referrals to appropriate treatment. 11/28 -Patient admits to alcohol consumption 2 consecutive nights before the admission but denies any relapse in her alcohol problems. -Her elevated blood pressure is more likely due to alcohol withdrawal and blood pressure will be monitored closely without adjustment of her blood pressure medications since patient's denies any physical symptoms associated with high blood pressure, such as headaches, dizziness, blurred vision chest pain, or shor tness of breath. 11/30 -AWSS protocol discontinued. (3) Generalized anxiety disorder: consider adjustment to antidepressant as above. Avoid benzodiazepines except for withdrawal. For mulugeta discussed use of neurontin 300 mg. Discussion included but was not limited to risks in combination with sedating substances and ETOH. PDMP does not show any benzo scripts from outside providers since March. 11/27 -Patient is still wants to take Ativan because nothing helps her anxiety except Ativan. Risks/benefits/alternatives reviewed re: benzodiazepine use. Discussion included but was not limited to risks of dependence and possible respiratory depression if combined with agents like alcohol or opiates. Patient understands that this provider's concern over use of benzodiazepine and she will try to use hydroxyzine when her anxiety gets bad, even though it does not work that well for her anxiety. 11/28 -Patient is not focused on use of Ativan too much today but states that hydroxyzine does not help anxiety much. -Her insight into anxiety seems to be improved since yesterday since that she processes anxiety as not reality based. 11/29 -Neurontin 300 mg for anxiety will be continued until sertraline is titrated up further. 11/30 -Scheduled dose of clonidine will be considered instead of Neurontin 300 mg for anxiety since patient reports clonidine related to her anxiety better than Neurontin. Her blood pressure will be monitored closely today to see if she develops significantly low blood pressure with increased dose of lisinopril and clonidine, which was administered last night. 12/01 as above raised zoloft to 150mg as of 12/02 am dose (4) HTN (hypertension): 11/29 -Lisinopril 10 mg added to her current dose, lisinopril 20 mg, this morning to control persistently elevated blood pressure and she will be on total 30 mg of lisinopril from today. 11/30 -Lisinopril 30 mg and clonidine 0.1 mg seem to control her blood pressure and scheduled use of clonidine will be considered if she does not develop hypotension today. 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 Review of Systems Sleep Information Total Hours of Sleep: 6.75 Sleep Comments: pt on q-15 minute checks Meal Information Percent Meal Consumed - Breakfast: 100 Percent Meal Consumed - Lunch: 100 Percent Meal Consumed - Dinner: 100 Subjective Subjective Patient was seen & assessed and interval progress reviewed with nursing and social work pt feels her depressed mood has improved but her anxiety is quite severe and manifests as worrying and as numbness. pt worries about her numbness and her disconnection, uses alcohol to lessen her distress and her numbness. passive SI does not feel connected to her family, worried about not living them due to this, family meeting went decently Physical Exam Psychiatric Orientation: alert and oriented x 3 Apperance: appropriately dressed and appropriately groomed Eye Contact: good eye contact Motor Behavior: steady gait and station Speech: normal rate/rhythm/volume of speech Affect: + depressed affect (improved today, smiling more frequently than other d ays) and + anxious affect (occasionally) Mood: + anxious mood (reporting improvement) Thought Process: linear/logical thought process and clear/coherent thought process Thought Content: reality based without delusions, + loneliness and + guilt Suicidal Thoughts: denies suicidal plan and denies suicidal intent; + reports suicidal thoughts Homicidal Thoughts: denies homicidal thoughts Hallucinations: no auditory hallucinations and no visual hallucinations Cognition: recent memory grossly intact, attention grossly intact and language grossly intact Estimated Intelligence: consistent with education level Insight: + impaired insight Judgement: + impaired judgement Vital Signs (Past 24 Hours) Last Vital Signs Temp 36.6 C 12/02/19 07:15 Pulse 82 12/02/19 14:00 Resp 18 12/02/19 07:15 BP 165/82 H 12/02/19 14:00 Pulse Ox 96 11/27/19 12:57 Results & Data ([facility]) Current Inpatient Medications Current Inpatient Medications: Current Inpatient Medications Acetaminophen (Tylenol) 650 mg PO Q4H PRN PRN Reason: Headache or Minor Fever Stop: 12/27/19 12:19 Al Hydrox/Mg Hydrox/Simethicone (Maalox) 30 ml PO Q4H PRN PRN Reason: GI Upset Stop: 12/27/19 12:19 Atorvastatin Calcium (Lipitor) 20 mg PO HS [facility] Stop: 12/27/19 20:59 Last Admin: 12/01/19 21:12 Dose: 20 mg Documented by: Bismuth Subsalicylate (Kaopectate) 15 ml PO PRN PRN PRN Reason: Loose Stool Stop: 12/27/19 12:19 Clonidine HCl (Catapres) 0.1 mg PO PRN PRN PRN Reason: Blood Pressure - High Stop: 12/31/19 08:44 Last Admin: 12/02/19 14:26 Dose: 0.1 mg Documented by: Gabapentin (Neurontin) 300 mg PO HS [facility] Stop: 12/27/19 21:59 Last Admin: 12/01/19 21:13 Dose: 300 mg Documented by: Hydroxyzine HCl (Vistaril) 50 mg PO HSZ PRN PRN Reason: Insomnia Stop: 12/27/19 12:19 Last Admin: 12/01/19 23:29 Dose: 50 mg Documented by: Hydroxyzine HCl (Vistaril) 25 mg PO Q4H PRN PRN Reason: Anxiety Stop: 12/27/19 12:19 Last Admin: 12/02/19 18:57 Dose: 25 mg Documented by: [facility]) [facility] Stop: 12/31/19 08:59 Last Admin: 12/02/19 07:31 Dose: 30 mg Documented by: Magnesium Hydroxide (Milk Of Magnesia) 30 ml PO DAILY PRN PRN Reason: Constipation Stop: 12/27/19 12:19 Miscellaneous (Remove Nicoderm Patch) 1 ea N/A DAILY@0859 [facility] Stop: 12/28/19 08:58 Last Admin: 12/02/19 07:31 Dose: Not Given Documented by: Miscellaneous (Remove Nicoderm Patch) 1 ea N/A DAILY@0859 [facility] Stop: 01/02/20 08:58 Nicotine (Nicoderm Cq) 21 mg TD [facility] Stop: 01/01/20 11:59 Last Admin: 12/02/19 13:05 Dose: 21 mg Documented by: Nicotine Polacrilex (Nicorette 2mg) 1 piece MT PRN PRN PRN Reason: cravings Stop: 01/01/20 11:35 Sertraline HCl (Zoloft) [facility] [place] Stop: 01/02/20 08:59 Sodium Chloride ([place] Nasal) 1 - 2 sprays NA PRN PRN PRN Reason: Nasal Dryness/Congestion Stop: 12/27/19 12:19 Trazodone HCl (Desyrel) 100 mg PO [facility] Stop: 12/27/19 20:59 Last Admin: 12/01/19 21:12 Dose: 100 mg Documented by: Mental Health & Subst Abuse Tx Psychiatrist Name of Psychiatrist: Elizabeth Cordero Psychiatrist's Date of Appointment with Psychiatrist: 12/08/19 Time of Appointment with Psychiatrist: 11:30 a.m. Psychiatric Appointment Comment: [address], [place], [place] [address] Therapist Name of Therapist: [facility] Kirstin Acosta Therapist's Date of Therapist Appointment: 12/06/19 Time of Therapist Appointment: 12:00 p.m. Therapy Appointment Comment: Telehealth Hosiery Operator Name of Hosiery Operator: None Post Discharge Appointments Primary Care Physician Name Of Family Doctor: SEAMUS Gonzalez Primary Care Date of Appointment with PCP: 12/12/19 Time of Appointment with PCP: 10:20 a.m. (In person) Provider Appointment Comment: [address] [facility], [address], [place] [address] Contact Information Discharge Discharge Address: [address] [place] [address] (1) Major depression, recurrent Active/Remission status: currently active Major depression episode severity: severe Psychotic features: without psychotic features Qualified Code(s): F33.2 - Major depressive disorder, recurrent severe without psychotic features
[2019-12-02] MEDS: GABAPENTIN 300 MG CAP PO SCH (21:03)
[2019-12-02] MEDS: ATORVASTATIN 20 MG TAB PO SCH (21:03)
[2019-12-02] MEDS: TRAZODONE HCL 100 MG TAB PO SCH (21:03)
[2019-12-03] MEDS: SERTRALINE HCL 50 MG TABLET PO SCH (07:43)
[2019-12-03] MEDS: lisinopriL 10 MG TAB PO SCH (07:43)
[2019-12-03] MEDS: NICOTINE 21 MG/24 HR TDSY TD SCH (07:44)
[2019-12-03] MEDS ORDERED: cloNIDine HCL 0.1 MG TAB PO SCH (11:30)
[2019-12-03] MEDS ORDERED: lisinopriL 10 MG TAB PO STA (14:06)
--- NOTE | 2019-12-03 15:50 | Psychiatric Progress Note ---
Date of Service December 03, 2019 Impression / Recommendations Impression 59 yo female with a remote history of alcoholism (sober >16 years), presents with recurrent depression and worsening anxiety following the of her and other COVID-related stressors. Mood and engagement improving, anxiety lessening some but a major aspect of her presentation as is her self critical htinking and shoulding of herself (1) Major depression, recurrent: The patient was admitted to the [facility] ([facility] mental health unit) on q15 min checks (behavioral with suicide precautions) for safety. The patient will participate in group, recreational, and milieu therapies and will be offered additional individual and family sessions as clinically appropriate. She feels her anxiety is primary. Discussed possible titration of Celexa but will defer to tomorrow, discussed FDA warnings re: QTc changes at higher doses and given combo with hydroxyzine feel in best interest to check EKG. 11/27 -Patient has been on Celexa 40 mg since March 2019 for increased depression and she has been having anticipatory anxiety associated with remission of MDD with recent stressors, including her 's in June of this year and self quarantine during COVID-19 outbreak. -Patient agrees to switch her SSRI to sertraline since citalopram does not control her anxiety and depressive symptoms that well. Cross titration will start from tomorrow morning and she will be on sertraline 50 mg with citalopram 20 mg for the next 2 to 3 days. If patient tolerates cross titration pretty well then further titration of sertraline will be considered up to 100 to 150 mg before discharge. Patient was informed of our treatment plan today. 11/28 -Cross titration will be continued for the next 1 or 2 more days and the patient denies any withdrawal symptoms of citalopram or side effects of sertraline. -Patient's suicidal ideation is a little bit better during the hospitalization but she is concerned that she might feel unsafe at home when she is discharged. -Will attempt to set up a family meeting with her daughter and or family members when she feels more stable. 11/29 -Continue current treatment regimen. Sertraline will be titrated up to 100 mg tomorrow and citalopram 20 mg will be discontinued from tomorrow. 11/30 -Continue current treatment regimen. Sertraline titrated up to 100 mg a day and discontinuation of escitalopram was tolerated pretty well. If she does not show any significant side effects, then sertraline will be titrated to more up to 150 mg Wednesday. 12/01 raised zolfot to 150mg a day as of 12/02 am dose 12/02 maintained meds unchanged (2) Alcohol abuse: binge drank last night, suspect other use, hx of benzo misuse as well--will implement AWSS protocol with Ativan prn with parameters for withdrawal. Will not load with Neurontin at this time but monitor. Reviewed with patient that Ativan will not be given for anxiety and rationale given controlled substance. 11/27 -Patient's AWSS elevated to 6 this afternoon with significantly high blood pressure and even though patient states that she had only 1 day alcohol consumption after 16 years of sobriety, she might need some intervention for her alcohol consumption. -Brief intervention was offered and accepted Intervention was greater than 5 min in length. Brief interventions include: 1. Assess Readiness to Quit, 2. Advise: Help Patient to Reduce or Abstain from Alcohol, 3. Agree: Set Specific, Feasible Goals, 4. Assist: Anticipate barriers, Problem-Solving Solutions. Social work to 5. Arrange: Referrals to appropriate treatment. 11/28 -Patient admits to alcohol consumption 2 consecutive nights before the admission but denies any relapse in her alcohol problems. -Her elevated blood pressure is more likely due to alcohol withdrawal and blood pressure will be monitored closely without adjustment of her blood pressure medications since patient's denies any physical symptoms associated with high blood pressure, such as headaches, dizziness, blurred vision chest pain, or shortness of breath. 11/30 -AWSS protocol discontinued. (3) Generalized anxiety disorder: consider adjustment to antidepressant as above. Avoid benzodiazepines except for withdrawal. For tonight discussed use of neurontin 300 mg. Discussion included but was not limited to risks in combination with sedating substances and ETOH. PDMP does not show any benzo scripts from outside providers since March. 11/27 -Patient is still wants to take Ativan because nothing helps her anxiety except Ativan. Risks/benefits/alternatives reviewed re: benzodiazepine use. Discussion included but was not limited to risks of dependence and possible respiratory depression if combined with agents like alcohol or opiates. Patient understands that this provider's concern over use of benzodiazepine and she will try to use hydroxyzine when her anxiety gets bad, even though it does not work that well for her anxiety. 11/28 -Patient is not focused on use of Ativan too much today but states that hydroxyzine does not help anxiety much. -Her insight into anxiety seems to be improved since yesterday since that she processes anxiety as not reality based. 11/29 -Neurontin 300 mg for anxiety will be continued until sertraline is titrated up further. 11/30 -Scheduled dose of clonidine will be considered instead of Neurontin 300 mg for anxiety since patient reports clonidine related to her anxiety better than Neurontin. Her blood pressure will be monitored closely today to see if she develops significantly low blood pressure with increased dose of lisinopril and clonidine, which was administered last night. 12/01 as above raised zoloft to 150mg as of 12/02 am dose 12/02 maintained meds unchanged and supportive/cbt therapy tied to anxiety and depression and self critical thinking and judgment thinking (4) HTN (hypertension): 11/29 -Lisinopril 10 mg added to her current dose, lisinopril 20 mg, this morning to control persistently elevated blood pressure and she will be on total 30 mg of lisinopril from today. 11/30 -Lisinopril 30 mg and clonidine 0.1 mg seem to control her blood pressure and scheduled use of clonidine will be considered if she does not develop hypotension today. 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 Review of Systems Sleep Information Total Hours of Sleep: 8.25 Sleep Comments: pt on q-15 minute checks Meal Information Percent Meal Consumed - Breakfast: 100 Percent Meal Consumed - Lunch: 100 Percent Meal Consumed - Dinner: 100 Subjective Subjective Patient was seen & assessed and interval progress reviewed with nursing and social work. pt reports some improvement in how she is doing. She is less numb and feeling less disconnected from herself and others. She is more motivated and engaging. She shared about her worries including her worries about worrying and about becoming severely depressed and severely numb. sleep and appetite intact. denied SI , denied AH or VH Physical Exam Psychiatric Orientation: alert, oriented x 3 and cooperative; not guarded Apperance: appropriately dressed and appropriately groomed Eye Contact: good eye contact Motor Behavior: steady gait and station and no abnormal motor movements Speech: normal rate/rhythm/volume of speech more amplitude and more full range and less depressed and less anxious Mood: + anxious mood (reporting improvement) Thought Process: linear/logical thought process and clear/coherent thought process Thought Content: reality based without delusions and + guilt Suicidal Thoughts: denies suicidal thoughts, denies suicidal plan and denies suicidal intent Homicidal Thoughts: denies homicidal thoughts Hallucinations: no auditory hallucinations and no visual hallucinations Cognition: recent memory grossly intact, attention grossly intact and language grossly intact Estimated Intelligence: consistent with education level Insight: + fair insight Judgement: + fair judgement Vital Signs (Past 24 Hours) Last Vital Signs Temp 36.7 C 12/03/19 06:00 Pulse 93 H 12/03/19 13:46 Resp 16 12/03/19 13:46 BP 182/94 H 12/03/19 13:46 Pulse Ox 98 12/02/19 22:01 Results & Data ([facility]) Current Inpatient Medications Current Inpatient Medications: Current Inpatient Medications Acetaminophen (Tylenol) 650 mg PO Q4H PRN PRN Reason: Headache or Minor Fever Stop: 12/27/19 12:19 Al Hydrox/Mg Hydrox/Simethicone (Maalox) 30 ml PO Q4H PRN PRN Reason: GI Upset Stop: 12/27/19 12:19 Atorvastatin Calcium (Lipitor) 20 mg PO [facility] Stop: 12/27/19 20:59 Last Admin: 12/02/19 21:03 Dose: 20 mg Documented by: Bismuth Subsalicylate (Kaopectate) 15 ml PO PRN PRN PRN Reason: Loose Stool Stop: 12/27/19 12:19 Clonidine HCl (Catapres) 0.1 mg PO Q12 PRN PRN Reason: hypertension Stop: 01/02/20 20:59 Gabapentin (Neurontin) 300 mg PO HS [facility] Stop: 12/27/19 21:59 Last Admin: 12/02/19 21:03 Dose: 300 mg Documented by: Hydroxyzine HCl (Vistaril) 50 mg PO HSZ PRN PRN Reason: Insomnia Stop: 12/27/19 12:19 Last Admin: 12/01/19 23:29 Dose: 50 mg Documented by: Hydroxyzine HCl (Vistaril) 25 mg PO Q4H PRN PRN Reason: Anxiety Stop: 12/27/19 12:19 Last Admin: 12/02/19 18:57 Dose: 25 mg Documented by: Lisinopril (Zestril) 40 mg PO QAM [facility] Stop: 01/03/20 08:59 Magnesium Hydroxide (Milk Of Magnesia) 30 ml PO DAILY PRN PRN Reason: Constipation Stop: 12/27/19 12:19 Miscellaneous (Remove Nicoderm Patch) 1 ea N/A DAILY@0859 [facility] Stop: 12/28/19 08:58 Last Admin: 12/03/19 07:46 Dose: Not Given Documented by: Miscellaneous (Remove Nicoderm Patch) 1 ea N/A DAILY@0859 [facility] Stop: 01/02/20 08:58 Last Admin: 12/03/19 07:46 Dose: 1 ea Documented by: Nicotine (Nicoderm Cq) [facility] Stop: 01/01/20 11:59 Last Admin: 12/03/19 07:44 Dose: 21 mg Documented by: Nicotine Polacrilex (Nicorette 2mg) 1 piece MT PRN PRN PRN Reason: cravings Stop: 01/01/20 11:35 Sertraline HCl (Zoloft) 150 mg PO [facility] Stop: 01/02/20 08:59 Last Admin: 12/03/19 07:43 Dose: 150 mg Documented by: Sodium Chloride ([place] Nasal) 1 - 2 sprays NA PRN PRN PRN Reason: Nasal Dryness/Congestion Stop: 12/27/19 12:19 Trazodone HCl (Desyrel) 100 mg PO [facility] Stop: 12/27/19 20:59 Last Admin: 12/02/19 21:03 Dose: 100 mg Documented by: Mental Health & Subst Abuse Tx Psychiatrist Name of Psychiatrist: Elizabeth Cordero Psychiatrist's Date of Appointment with Psychiatrist: 12/08/19 Time of Appointment with Psychiatrist: 11:30 a.m. Psychiatric Appointment Comment: [address], [place], [place] [address] Therapist Name of Therapist: [facility] Kirstin Acosta Therapist's Date of Therapist Appointment: 12/06/19 Time of Therapist Appointment: 12:00 p.m. Therapy Appointment Comment: Telehealth - Discuss with Kirstin increasing appt frequency Longitudinal Float Operator Name of Longitudinal Float Operator: None Post Discharge Appointments Primary Care Physician Name Of Family Doctor: SEAMUS Gonzalez Primary Care Date of Appointment with PCP: 12/12/19 Time of Appointment with PCP: 10:20 a.m. (In person) Provider Appointment Comment: [address] [facility], [address], [place] [address] Contact Information Discharge Discharge Address: [address] [place] [address] (1) Major depression, recurrent Active/Remission status: currently active Major depression episode severity: severe Psychotic features: without psychotic features Qualified Code(s): F33.2 - Major depressive disorder, recurrent severe without psychotic features
[2019-12-03] MEDS ORDERED: cloNIDine HCL 0.1 MG TAB PO PRN (21:00)
[2019-12-03] MEDS: GABAPENTIN 300 MG CAP PO SCH (21:05)
[2019-12-03] MEDS: TRAZODONE HCL 100 MG TAB PO SCH (21:05)
[2019-12-03] MEDS: ATORVASTATIN 20 MG TAB PO SCH (21:05)
[2019-12-04] MEDS: NICOTINE 21 MG/24 HR TDSY TD SCH (08:11)
[2019-12-04] MEDS: SERTRALINE HCL 50 MG TABLET PO SCH (08:12)
[2019-12-04] MEDS ORDERED: lisinopriL 40 MG TAB PO SCH (09:00)
--- NOTE | 2019-12-04 10:09 | Discharge Summary ---
Date of Service December 04, 2019 History of Present Illness States that still grieving her who in June after 5 years of extended illness. She "tries to stay busy but only so much I can do at home." She states that her anxiety has been constant, has difficulty describing specific thoughts "they just race". Denies associated manic symptoms. States that after awhile it triggers depression, states was so low that couldn't eat much the past few days. States that it's been harder to fall asleep but also states that her Celexa and trazodone are "working fine". She states that on falling asleep she would "see soldiers", like a dream state when thoughts are racing. She appears to have some sedation perhaps even confusion following Ativan in ED. States "Ativan takes everything away" and then repeatedly asked for Ativan. Reviewed concerns about ongoing use of controlled substances with ETOH hx. She continues to insist that ETOH use last pm was "a one time thing" rather than recent ongoing use but BP also elevated (thought to be anxiety rather than withdrawal). She admits to drinking 1 pint of moonshine in the hopes of never waking up again. She did not seek care at that time but instead went to Dr. Cordero appointment and ultimately referred to ED. 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 Physical Exam Psychiatric Orientation: alert and cooperative Apperance: appropriately dressed, appropriately groomed and appeared stated age Eye Contact: good eye contact Motor Behavior: steady gait and station Fidgets with hands intermittently. Speech: normal rate/rhythm/volume of speech Affect: + anxious affect and mood congruent with affect Mood: + anxious mood Thought Process: goal directed thought process Thought Content: + preoccupation (With worries about how things will go at home) and reality based without delusions Suicidal Thoughts: denies suicidal thoughts Homicidal Thoughts: denies homicidal thoughts Hallucinations: no auditory hallucinations and no visual hallucinations Cognition: recent memory grossly intact, attention grossly intact and language grossly intact Insight: + fair insight Vital Signs (Past 24 Hours) Last Vital Signs Temp 36.3 C L 12/04/19 06:51 Pulse 81 12/04/19 06:51 Resp 20 12/04/19 06:51 BP 126/82 12/04/19 06:51 Pulse Ox 98 12/02/19 22:01 Principal Diagnosis Generalized anxiety disorder Major depressive disorder, recurrent, moderate Alcohol use disorder Hypertension Psychiatric Data The patient was hospitalized for 7 days. On admission, she reported constant and debilitating anxiety, which caused worsening depression. She was focused on benzodiazepines, repeatedly asking for Ativan, and admitted to relapsing on alcohol the day prior to admission. She was started on AWSS protocol for alcohol withdrawal including gabapentin, and an EKG was ordered to check QTC, with recommendations to explore cross titration to a different antidepressant. EKG was sinus rhythm with a QTC of 426. The following day, cross taper from citalopram to sertraline was started. She continued to have elevated blood pressure in the absence of other alcohol withdrawal symptoms, so lisinopril was increased, and clonidine later added. She was continued on her home doses of hydroxyzine and trazodone as needed for anxiety and sleep, and was offered nicotine patch and gum for nicotine dependence. She tolerated the medication changes well, attended and participated in groups and therapy, and had a family meeting with her 2 adult daughters on 11/30/2019. They encourage the patient to be more open with them about how she is doing, and the need for more frequent therapy. The patient talked about her grief from her 's , loss of her caregiving role, and then inability to work due to the pandemic. She admitted she does not open up to her therapist about things that bother her, and does not process her stressors. More frequent therapy was recommended, as well as increase support and structure at home. The patient discussed a plan to go and live with her mother after discharge, as she found it difficult to be at home alone. She reported improved mood, reduced anxiety, and resolution of suicidal thoughts. Cognitive behavioral therapy techniques were utilized to target negative thought patterns. Day of Discharge Assessment Staff report the patient has been eating and sleeping well, taking medications as prescribed, and tolerating medications well. She is attending a participating in groups and therapy, and blood pressure has normalized after multiple medication adjustments. She has appointments set up with her therapist, psychiatrist, and PCP. On my assessment, she states that her mood and anxiety have improved, although she continues to feel anxious, predominantly about returning home and fears that she will relapse. She is able to review her plan to increase structure, increase frequency of therapy, and better utilize supports (daughters, mother). She is planning to either stay with her mother, or have her mother stay with her, so that she will not be home alone. She has an appointment with her therapist and her daughter is going to come over to help her set up the zoo meeting, rather than talking on the phone with her. She is willing to increase the frequency of therapy to weekly. 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 She appears to have some difficulty coming up with ideas to increase her structure at home, and was encouraged to continue working on this in therapy and with her family. She denies suicidal thoughts and acute safety concerns. She denies side effects to medications. Transition of Care Transition Of Care Record: was reviewed with the patient Advance Directives Advance Directives Information Provided: Yes Advance Directives: No Mental Health Advance Directive: No Advance Directives on File: No Living Will: No Power of Insurance Claims Clerk: No Advance Directives Reason:: Declines as Mental Health Visit. Risk Factors Assessment Risk factors were mitigated by admission to the inpatient unit, use of medications to target mood and anxiety symptoms, treatment of alcohol withdrawal, education about her diagnoses and the treatment recommendations, involving her in groups and therapy, processing her psychosocial stressors, family meeting with her adult daughters, plans to stay with her mother after discharge for increased support, exploration of ways to increase supports and structure at home, coordination with outpatient clinicians and recommendations for increased frequency of therapy, and working on healthy coping skills and a discharge safety plan. She is demonstrated improvement in mood and anxiety symptoms, resolution of suicidal thoughts, is eating and sleeping well, compliant with medications, and stating willingness to follow-up with outpatient care. She is no longer at acute risk of harm to herself, so can be managed as an outpatient at this time. She does not have risk factors for harm to others. 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[facility]) Stable Relationships: Yes Supportive Family: Yes Good Rapport with Provider: Yes Tobacco Cessation at Discharge Tobacco Cessation Medication Prescribed at Discharge: Offered & Prescribed Practical counseling provided including: recognizing danger situations, developing coping skills and providing basic information about quitting Tobacco Cessation Outpatient Followup: Outpatient referral made to (PCP) Total Time Total Time Spent: Greater Than 30 Minutes Total Time Includes: Examination of the patient, Discharge Planning and Medication Reconciliation Discharge Data Lab Results 11/27/19 11/27/19 11/27/19 10:15 10:15 10:15 WBC RBC Hgb Hct MCV MCH MCHC RDW Std Deviation RDW Coeff of Hever Plt Count MPV Immature Gran % (Auto) Neut % (Auto) Lymph % (Auto) [place] % (Auto) Eos % (Auto) Baso % (Auto) Immature Gran # (Auto) Neut # (Auto) Lymph # (Auto) [place] # (Auto) Eos # (Auto) Baso # (Auto) Sodium Potassium Chloride Carbon Dioxide Anion Gap BUN Creatinine Est Cr Clr Drug Dosing Est GFR ( Amer) Est GFR (Non-Af Amer) BUN/Creatinine Ratio Glucose Calcium Total Bilirubin AST ALT Alkaline Phosphatase Total Protein Albumin Globulin Albumin/Globulin Ratio TSH Urine Color Yellow Urine Appearance Clear Urine pH 5.5 Ur Specific [place] 1.016 Urine Protein Trace H Urine Glucose (UA) Negative Urine Ketones Trace H Urine Blood Negative Urine Nitrite Negative Urine Bilirubin Negative Urine Urobilinogen Negative Ur Leukocyte Esterase Negative Urine WBC (Auto) 1-5 Urine RBC (Auto) 5-10 H U Hyaline Cast (Auto) 1-5 U Epithel Cells (Auto) >30 H Urine Bacteria (Auto) Negative Salicylates Urine Opiates Screen Neg Ur Methadone, Qual Neg Acetaminophen Urine Barbiturates Neg Ur Phencyclidine (PCP) Neg U Amphetamin/Meth Scrn Neg Urine MDEA negative MDMA (Ecstasy) Screen Pos H MDMA negative Urine MDMA negative U Benzodiazepines Scrn Neg Ur Cocaine Metabolite Neg U Marijuana (THC) Screen Neg Ethyl Alcohol mg/dL 11/27/19 11/27/19 11/27/19 10:32 10:32 10:32 WBC 7.94 RBC 5.00 Hgb 14.2 Hct 42.4 MCV 84.8 MCH 28.4 MCHC 33.5 RDW Std Deviation 42.1 RDW Coeff of Hever 13.6 Plt Count 300 MPV 9.8 Immature Gran % (Auto) 0.5 Neut % (Auto) 78.7 Lymph % (Auto) 13.7 [place] % (Auto) 6.2 Eos % (Auto) 0.4 Baso % (Auto) 0.5 Immature Gran # (Auto) 0.04 H Neut # (Auto) 6.25 Lymph # (Auto) 1.09 L [place] # (Auto) 0.49 Eos # (Auto) 0.03 Baso # (Auto) 0.04 Sodium 132 L Potassium 3.9 Chloride 100 Carbon Dioxide 26 Anion Gap 6.0 BUN 10 Creatinine 0.70 Est Cr Clr Drug Dosing 69.8 Est GFR ( Amer) 108.4 Est GFR (Non-Af Amer) 93.5 BUN/Creatinine Ratio 13.7 Glucose 106 H Calcium 8.7 Total Bilirubin 0.5 AST 24 ALT 34 Alkaline Phosphatase 159 H Total Protein 7.2 Albumin 3.6 Globulin 3.6 Albumin/Globulin Ratio 1.0 TSH 0.627 Urine Color Urine Appearance Urine pH Ur Specific [place] Urine Protein Urine Glucose (UA) Urine Ketones Urine Blood Urine Nitrite Urine Bilirubin Urine Urobilinogen Ur Leukocyte Esterase Urine WBC (Auto) Urine RBC (Auto) U Hyaline Cast (Auto) U Epithel Cells (Auto) Urine Bacteria (Auto) Salicylates 2.4 L Urine Opiates Screen Ur Methadone, Qual Acetaminophen < 2 L Urine Barbiturates Ur Phencyclidine (PCP) U Amphetamin/Meth Scrn Urine MDEA MDMA (Ecstasy) Screen MDMA Urine MDMA U Benzodiazepines Scrn Ur Cocaine Metabolite U Marijuana (THC) Screen Ethyl Alcohol mg/dL 11/27/19 10:32 WBC RBC Hgb Hct MCV MCH MCHC RDW Std Deviation RDW Coeff of Hever Plt Count MPV Immature Gran % (Auto) Neut % (Auto) Lymph % (Auto) [place] % (Auto) Eos % (Auto) Baso % (Auto) Immature Gran # (Auto) Neut # (Auto) Lymph # (Auto) [place] # (Auto) Eos # (Auto) Baso # (Auto) Sodium Potassium Chloride Carbon Dioxide Anion Gap BUN Creatinine Est Cr Clr Drug Dosing Est GFR ( Amer) Est GFR (Non-Af Amer) BUN/Creatinine Ratio Glucose Calcium Total Bilirubin AST ALT Alkaline Phosphatase Total Protein Albumin Globulin Albumin/Globulin Ratio TSH Urine Color Urine Appearance Urine pH Ur Specific [place] Urine Protein Urine Glucose (UA) Urine Ketones Urine Blood Urine Nitrite Urine Bilirubin Urine Urobilinogen Ur Leukocyte Esterase Urine WBC (Auto) Urine RBC (Auto) U Hyaline Cast (Auto) U Epithel Cells (Auto) Urine Bacteria (Auto) Salicylates Urine Opiates Screen Ur Methadone, Qual Acetaminophen Urine Barbiturates Ur Phencyclidine (PCP) U Amphetamin/Meth Scrn Urine MDEA MDMA (Ecstasy) Screen MDMA Urine MDMA U Benzodiazepines Scrn Ur Cocaine Metabolite U Marijuana (THC) Screen Ethyl Alcohol mg/dL < 3.0 Hospital Course (1) Major depression, recurrent: The patient was admitted to the [facility] ([facility]) on q15 min checks (behavioral with suicide precautions) for safety. The patient will participate in group, recreational, and milieu therapies and will be offered additional individual and family sessions as clinically appropriate. She feels her anxiety is primary. Discussed possible titration of Celexa but will defer to tomorrow, discussed FDA warnings re: QTc changes at higher doses and given combo with hydroxyzine feel in best interest to check EKG. 11/27 -Patient has been on Celexa 40 mg since March 2019 for increased depression and she has been having anticipatory anxiety associated with remission of MDD with recent stressors, including her 's in June of this year and self quarantine during COVID-19 outbreak. -Patient agrees to switch her SSRI to sertraline since citalopram does not control her anxiety and depressive symptoms that well. Cross titration will start from tomorrow morning and she will be on sertraline 50 mg with citalopram 20 mg for the next 2 to 3 days. If patient tolerates cross titration pretty well then further titration of sertraline will be considered up to 100 to 150 mg before discharge. Patient was informed of our treatment plan today. 11/28 -Cross titration will be continued for the next 1 or 2 more days and the patient denies any withdrawal symptoms of citalopram or side effects of sertraline. -Patient's suicidal ideation is a little bit better during the hospitalization but she is concerned that she might feel unsafe at home when she is discharged. -Will attempt to set up a family meeting with her daughter and or family members when she feels more stable. 11/29 -Continue current treatment regimen. Sertraline will be titrated up to 100 mg tomorrow and citalopram 20 mg will be discontinued from tomorrow. 11/30 -Continue current treatment regimen. Sertraline titrated up to 100 mg a day and discontinuation of escitalopram was tolerated pretty well. If she does not show any significant side effects, then sertraline will be titrated to more up to 150 mg Wednesday. 12/01 raised Zoloft to 150mg a day as of 12/02 am dose 12/02 maintained meds unchanged (2) Alcohol abuse: binge drank last night, suspect other use, hx of benzo misuse as well--will implement AWSS protocol with Ativan prn with parameters for withdrawal. Will not load with Neurontin at this time but monitor. Reviewed with patient that Ativan will not be given for anxiety and rationale given controlled substance. 11/27 -Patient's AWSS elevated to 6 this afternoon with significantly high blood pressure and even though patient states that she had only 1 day alcohol consumption after 16 years of sobriety, she might need some intervention for her alcohol consumption. -Brief intervention was offered and accepted Intervention was greater than 5 min in length. Brief interventions include: 1. Assess Readiness to Quit, 2. Advise: Help Patient to Reduce or Abstain from Alcohol, 3. Agree: Set Specific, Feasible Goals, 4. Assist: Anticipate barriers, Problem-Solving Solutions. Social work to 5. Arrange: Referrals to appropriate treatment. 11/28 -Patient admits to alcohol consumption 2 consecutive nights before the admission but denies any relapse in her alcohol problems. -Her elevated blood pressure is more likely due to alcohol withdrawal and blood pressure will be monitored closely without adjustment of her blood pressure medications since patient's denies any physical symptoms associated with high blood pressure, such as headaches, dizziness, blurred vision chest pain, or shortness of breath. 11/30 -AWSS protocol discontinued. 12/01 -Patient indicates willingness to maintain sobriety. If she is unable to do this, would recommend outpatient substance abuse treatment. -Avoid prescription of controlled substances, particularly benzodiazepines, due to risk of abuse/misuse/negative outcomes. (3) Generalized anxiety disorder: consider adjustment to antidepressant as above. Avoid benzodiazepines except for withdrawal. For mulugeta discussed use of neurontin 300 mg. Discussion included but was not limited to risks in combination with sedating substances and ETOH. PDMP does not show any benzo scripts from outside providers since March. 11/27 -Patient is still wants to take Ativan because nothing helps her anxiety except Ativan. Risks/benefits/alternatives reviewed re: benzodiazepine use. Discussion included but was not limited to risks of dependence and possible respiratory depression if combined with agents like alcohol or opiates. Patient understands that this provider's concern over use of benzodiazepine and she will try to use hydroxyzine when her anxiety gets bad, even though it does not work that well for her anxiety. 11/28 -Patient is not focused on use of Ativan too much today but states that hydroxyzine does not help anxiety much. -Her insight into anxiety seems to be improved since yesterday since that she processes anxiety as not reality based. 11/29 -Neurontin 300 mg for anxiety will be continued until sertraline is titrated up further. 11/30 -Scheduled dose of clonidine will be considered instead of Neurontin 300 mg for anxiety since patient reports clonidine related to her anxiety better than Neurontin. Her blood pressure will be monitored closely today to see if she develops significantly low blood pressure with increased dose of lisinopril and clonidine, which was administered last night. 12/01 as above raised zoloft to 150mg as of 12/02 am dose 12/02 maintained meds unchanged and supportive/cbt therapy tied to anxiety and depression and self critical thinking and judgment thinking (4) HTN (hypertension): 11/29 -Lisinopril 10 mg added to her current dose, lisinopril 20 mg, this morning to control persistently elevated blood pressure and she will be on total 30 mg of lisinopril from today. 11/30 -Lisinopril 30 mg and clonidine 0.1 mg seem to control her blood pressure and scheduled use of clonidine will be considered if she does not develop hypotension today. 12/02 given elevated bp, raised lisinipril to 40mg a day, and clonidine to 0.1mg q12 hours 12/03 -blood pressure has normalized with clonidine 0.1 mg once daily, so will continue that dose after discharge. Follow-up with PCP for ongoing management. Mental Health & Subst Abuse Tx Psychiatrist Name of Psychiatrist: Elizabeth Cordero Psychiatrist's Date of Appointment with Psychiatrist: 12/08/19 Time of Appointment with Psychiatrist: 11:30 a.m. Psychiatric Appointment Comment: [id number], [place] [id number] Therapist Name of Therapist: CardiaLen Kirstin Acosta Therapist's Date of Therapist Appointment: 12/06/19 Time of Therapist Appointment: 12:00 p.m. Therapy Appointment Comment: Telehealth - Discuss with Kirstin increasing appt frequency Construction Tech Name of Construction Tech: None Post Discharge Appointments Primary Care Physician Name Of Family Doctor: SEAMUS Gonzalez Primary Care Date of Appointment with PCP: 12/12/19 Time of Appointment with PCP: 10:20 a.m. (In person) [facility]ment [facility] [address] [facility], [place] [address] Smoking Cessation Counseling Tobacco Cessation Medication Prescribed at Discharge: Offered & Prescribed Contact Information Discharge Discharge Address: [address] [place] [address] Discharge Plan Discharge Items Patient Disposition: Home - Self-Care Reason For Visit: MAJOR DEPRESSIVE DISORDER, RECURRENT Discharge Diagnosis: MAJOR DEPRESSIVE DISORDER, RECURRENT Condition on Discharge: Good Activity: Per Instructions section Non-emergency contact: Primary Care Provider, Psychiatrist and Therapist Call non-emergency contact if: you have any medication questions and your symptoms worsen Follow-up/Referrals: Marianne Gonzalez DO [Primary Care Provider] - Diet: Regular Addtl Attending Provider Instructions: SPECIAL CARE INSTRUCTIONS: 1. Follow through with your scheduled aftercare appointments. If unable to keep an appointment, please call to reschedule. - Follow up with your PCP for high blood pressure. 2. Take your medication only as prescribed. Medication should not be changed or stopped without the approval of your doctor. In the event of worsening symptoms or concerns about side effects, contact your doctor immediately. 3. Utilize new healthy coping skills, anger management skills, and stress management skills learned during your hospitalization. Journal feelings and process them with a support person. Identify stressors or situations that may result in relapse, deterioration or inappropriate behaviors and develop a plan to deal with those issues. 4. If your coping skills are ineffective and you are in crisis, contact your outpatient providers for direction. If unable to reach your providers, please call the CAN HELP LINE AT or go to the closest Emergency Room. 5. Avoid alcohol and un-prescribed drugs. 6. You have been provided with the Mental Health Advance Directives Pamphlet for your review. AFTERCARE APPOINTMENTS: * Please call your insurance company prior to your scheduled appointment to confirm your aftercare providers are covered. Take your insurance information to your appointments. WHO TO CALL AND WHEN: Medical Emergencies: For questions or emergencies related to your hospital stay, please contact the Inpatient Behavioral Health Unit at [phone]. A rn clinician is on-call 11/01 for the Behavioral Health Unit for emergencies At any time you feel your situation is an emergency, you may also call 911 immediately. Your Doctors Instructions noted above were prepared by provider Sanjana Singleton MD. Pending Studies at Discharge: No Stand-Alone Forms: My [facility] [employer], Smoking Cessation, Suicide Prevention Resources Medications and DC Order Prescriptions: New clonidine HCl 0.1 mg Tablet 0.1 mg PO DAILY Qty: 30 RF: 0 nicotine (polacrilex) [Nicorelief] 2 mg Gum 2 mg MT PRN PRN (Reason: cravings) Qty: 1 RF: 0 nicotine [Nicoderm CQ] 21 mg/24 hr Patch 24 Hour 21 mg transdermal QAM Qty: 7 RF: 0 gabapentin 300 mg Capsule 300 mg PO HS Qty: 30 RF: 0 sertraline 100 mg tablet 150 mg PO QAM Qty: 45 RF: 0 lisinopril [Zestril] 40 mg Tablet 40 mg PO QAM Qty: 30 RF: 0 Continued trazodone 100 mg tablet 100 mg PO HS Qty: 30 RF: 5 atorvastatin 20 mg tablet 20 mg PO HS Qty: 90 RF: 1 hydroxyzine HCl 25 mg tablet 25 mg PO Q4H PRN (Reason: anxiety or insomnia) Qty: 60 RF: 1 Discontinued citalopram [Celexa] 40 mg tablet 40 mg PO DAILY Qty: 30 RF: 5 lisinopril 20 mg tablet 20 mg PO DAILY Qty: 90 RF: 1 Discharge Orders: Discharge Order (Routine); Ordered 12/04/19 Ordered By: Sanjana Singleton Admission Data Admit Date/Time: 11/27/19 12:20 Attending Provider: Sanjana Singleton Admit Provider: Tabitha Estes Primary Care Provider: Marianne Gonzalez Other Interventions: PSY Interdisciplinary Discharge Planning Last Done: 12/03/19 10:24 Coding Level of Care Code 61147 D/C day mgmt > 30 min Diagnoses Major depression, recurrent F33.2 Active/Remission status: currently active Major depression episode severity: severe Psychotic features: without psychotic features Alcohol abuse F10.10 Generalized anxiety disorder F41.1 HTN (hypertension) I10
--- NOTE | 2019-12-07 08:54 | Coding Query ---
CODING QUERY To promote full compliance with coding requirements relating to patient care, provider participation is requested in all cases of metal melter uncertainty. Please assist us with the question(s) below: Coding Question(s): There is documentation in the record of possible Alcohol Withdrawal, Alcohol Abuse and Alcohol use. Please specify below, in your clinical opinion, regarding the diagnosis related to Alcohol during this admission. ( ) Alcohol Withdrawal ( ) Alcohol Abuse ( ) Alcohol Use ( x ) Alcohol Use and Abuse and Withdrawal ( ) Other: Please Specify Physician's Response(s): Thank you Mikayla Molina Principal Diagnosis: "that condition established after study, to be chiefly responsible for occasioning the admission of the patient to the hospital for care." Co-Existing Principal Diagnosis: "when two or more diagnoses equally meet the criteria for principal diagnosis as determined by the circumstances of admission, diagnostic work up, and/or therapy provided, and the Alphabetic Index, Tabular List, or another coding guideline does not provide sequencing direction, any one of the diagnoses may be sequenced first." "When the physician has documented what appears to be a current diagnosis in the body of the record, but has not included the diagnosis in the final diagnostic statement, the physician should be asked whether the diagnosis should be added." (Source [facility] 2 QTR90. p3-4) KYLE
== END 2019-12-04 13:52 | disposition home or self-care (01) | DRG 885 ==
LOC: ED 09:59 → 3S 12:20